=== PATIENT | female | born 1940 | race African-American/Black ===

== ENCOUNTER 2016-11-28 04:38 | Emergency (ER) | payer MEDICARE, MEDICAID ==
[~2016-11-28] VITALS: Ht 154.9 cm; Wt 68.0 kg
[~2016-11-28 04:38] MED LIST: ACETAMINOPHEN-1 EAC2 ORAL; ASPIR 8181 MG ORAL; BENADRYL; BENADRYL25 MG ORAL; BISACODYL5 MG ORAL; BP MED; CEFEPIME HCL1 GM IVPB; COLACE100 MG ORAL; DILAUDID 22 MG/1 ML IV; EYE DROP TEARS15 ML OP; FLAGYL500 MG/100 IV; GLUCOPHAGE500 MG ORAL; GUAIFENESIN-CO118 M1 ORAL; HEPARIN SO5000 UNIT2 SUBQ; HYDROCORTISONE25 MG RC; KENALOG 0.1% CR15 GM APPLIC; LIDOCAINE700 M1 TP; MEDROL DOSEPAK4 MG ORAL; MIRALAX17 GM PO; NEXIUM40 MG ORAL; NKM; NORCO 10-325 T1 EACH ORAL; NORCO 10/3251 EA ORAL; NORCO 5-325 TA1 EACH ORAL; NORVASC10 MG ORAL; NOVOLOG100 UNIT/3 SUBQ; PERI-COLACE1 EA PO; PROTONIX IV40 MG IV; SOMA350 MG PO; TRAMADOL HCL50 MG ORAL; TYLENOL EXTRA500 MG ORAL; UNOBMED; VALIUM PO; VALIUM10 MG ORAL; ZITHROMAX250 MG ORAL; ZOFRAN 4 MG4 MG/2 ML IV; ZOFRAN4 M1 ORAL; ZOFRAN4 MG ORAL; [UNRECOGNIZED DRUG - REMARK]
[2016-11-28 05:05] VITALS: BP 125/90
[2016-11-28] MEDS ORDERED: HYDROmorphone 1mg/ml Carpuject IVP ONE (05:15)
--- NOTE | 2016-11-28 05:30 | Emergency Room Report ---
History of Present Illness General Chief Complaint: Abdominal Pain Source: Patient Present Illness HPI Is a 76-year-old female well-known to this ER multiple ER is in that area. She has multiple medical problem but also has chronic pain issues. She presents with chief complaint abdominal pain. Onset for last couple days. Has vomiting but no diarrhea. Pain is diffuse. 10 out of 10. No radiation. She has previous surgical interventions before. Her medicine is not helping. She has this type of pain before and workup have been negative in the past. Allergies: Coded Allergies: IBUPROFEN (Verified Allergy, Intermediate, rash, 01/24/13) prescription strength only MORPHINE (Verified Allergy, Intermediate, rash, 01/24/13) OXYCODONE (Unverified Allergy, Unknown, 03/09/15) pt cant remember Patient History Past Medical History: see triage record, old chart reviewed Past Surgical History: other Pertinent Family History: none Social History: Denies: smoking Now: No Immunizations: other Reviewed Nursing Documentation: PMH: Agreed, PSxH: Agreed Nursing Documentation-PMH Hx Hypertension: Yes Hx Pacemaker: No Hx Asthma: No Hx COPD: No Hx Diabetes: Yes Hx Cancer: No Hx Gastrointestinal Problems: Yes - ABDOMINAL PAIN, HYSTERECTOMY 69. Hx Dialysis: No Hx Neurological Problems: Yes - RA Hx Cerebrovascular Accident: No Hx Seizures: No Hx Headaches: Yes Review of Systems Eye: Denies: blurred vision, eye pain ENT: Denies: ear pain, nose congestion, throat swelling Respiratory: Denies: cough, shortness of breath Cardiovascular: Denies: chest pain, palpitations Gastrointestinal: Reports: abdominal pain, nausea, vomiting, Denies: diarrhea Musculoskeletal: Denies: back pain, joint pain Skin: Denies: rash Neurological: Denies: headache, numbness Endocrine: Denies: increased thirst, increased urine Hematologic/Lymphatic: Denies: easy bruising All Other Systems: negative except mentioned in HPI Physical Exam Vital Signs Date Time Temp Pulse Resp B/P Pulse Ox O2 Delivery O2 Flow Rate FiO2 11/28/16 05:05 96 24 125/90 100 Room Air vitals normal Sp02 EP Interpretation: reviewed, normal General Appearance: well appearing, no apparent distress, alert Head: normocephalic, atraumatic Eyes: bilateral eye EOMI, bilateral eye PERRL ENT: hearing grossly normal, normal pharynx Neck: full range of motion, supple, no meningismus Respiratory: chest non-tender, lungs clear, normal breath sounds Cardiovascular #1: regular rate, rhythm, no murmur Gastrointestinal: normal bowel sounds, no mass, no organomegaly, no bruit, non- distended, tenderness - Diffuse Musculoskeletal: back normal, gait/station normal, normal range of motion Psychiatric: mood/affect normal Skin: warm/dry Medical Decision Making Diagnostic Impression: Primary Impression: Abdominal pain Qualified Codes: R10.84 - Generalized abdominal pain Additional Impression: Opiate dependence Qualified Codes: F11.20 - Opioid dependence, uncomplicated ER Course Patient present with abdominal pain. Most likely opioid dependence, would crawl in nature. She is pain-free now. She has multiple CT scan in the past. She does have risk factor for obstruction with previous surgery. I wet read of the CT scan is unremarkable. If negative she can be discharged home. She is much more comfortable here after Dilaudid. Lab Results Impression labs normal CT/MRI/US Diagnostic Results CT/MRI/US Diagnostic Results : Imaging Test Ordered: CT a/p Impression Read by radiologist as no acute process. Last Vital Signs Date Time Temp Pulse Resp B/P Pulse Ox O2 Delivery O2 Flow Rate FiO2 11/28/16 05:05 96 24 125/90 100 Room Air Status: improved Disposition: HOME, SELF-CARE Condition: Stable Referrals: MAVERICK CANNON (PCP) Patient Instructions: Abdominal Pain, Adult Additional Instructions: Followup with your Dr. in 2 to 3 days. Take your pain medication. Return if worse. MYRON SERRANO M.D. Nov 28, 2016 05:30
[2016-11-28 05:32] LABS: APPEARANCE,URINE CLEAR; KETONES,URINE NEGATIVE (NEGATIVE); LEUKOCYTE ESTERASE ,URINE NEGATIVE (NEGATIVE); NITRITE,URINE NEGATIVE (NEGATIVE); PH,URINE 7 (4.5-8.0); PROTEIN,URINE NEGATIVE (NEGATIVE); UROBILINOGEN,URINE NORMAL MG/DL (0.0-1.0)
[2016-11-28 05:35] LABS: BASOPHILS % (AUTO) 1.5 % (0.0-2.0); EOSINOPHILS % (AUTO) 2.5 % (0.0-3.0); LYMPHOCYTES % (AUTO) 27.9 % (20.0-45.0); MEAN CORPUSCULAR HEMOGLOBIN 33.3 PG (27.0-31.0); MEAN CORPUSCULAR HGB CONC 31.4 G/DL (32.0-36.0); MEAN CORPUSCULAR VOLUME 106 FL (80-99); MEAN PLATELET VOLUME 5.6 FL (6.5-10.1); NEUTROPHILS % (AUTO) 63.1 % (45.0-75.0); PLATELET COUNT 216 K/UL (150-450); RED BLOOD COUNT 3.67 M/UL (4.20-5.40); RED CELL DISTRIBUTION WIDTH 14.8 % (11.6-14.8); WHITE BLOOD COUNT 8.2 K/UL (4.8-10.8)
[2016-11-28] MEDS ORDERED: Tubing IV Cassette IV ONE (05:39)
[2016-11-28 05:49] LABS: ALANINE AMINOTRANSFERASE 27 U/L (3-33); ALBUMIN/GLOBULIN RATIO 1.1 (1.0-2.7); ANION GAP 16 (5-15); ASPARTATE AMINO TRANSFERASE 21 U/L (5-40); CALCIUM 9.5 mg/dL (8.6-10.2); CARBON DIOXIDE 26 mEQ/L (20-30); CHLORIDE 96 mEQ/L (98-107); CREATININE 0.6 mg/dL (0.5-0.9); HEMOLYSIS 64; LIPASE 27 U/L (< 60); POTASSIUM 4.5 mEQ/L (3.4-4.9); SODIUM 138 mEQ/L (135-145); TOTAL PROTEIN 7.2 g/dL (6.6-8.7)
[2016-11-28 06:37] VITALS: BP 113/69
[2016-11-28 07:06] VITALS: BP 113/69
--- NOTE | 2016-12-03 10:30 | Diagnostic Imaging Report ---
Indication: Abdominal pain Technique: Continuous helical transaxial imaging of the abdomen and pelvis was obtained from the lung bases to the pubic symphysis. No intravenous contrast was administered. Coronal 2-D reformats were also obtained. Total Dose length Product (DLP): [address] Dose Index Volume (CTDIvol): 18 mGy Comparison: 12/02/14 Findings: Linear reticular densities are present at the lung bases consistent with fibrosis. There is a small hiatal hernia present. Moderate arterial*consultations are present. Gallbladder is grossly unremarkable but partially contracted. No obvious stones. Normal appendix demonstrated. Diverticula noted throughout the colon especially in the sigmoid region. The uterus is not identified. Urinary bladder is unremarkable. No free fluid or free air identified. There is no evidence of bowel obstruction. There is narrowing of intervertebral discs and accompanying endplate osteophyte formation. Hypertrophied facet joints also demonstrated. Anterolisthesis L5 on S1 noted. Impression: No acute findings appreciated. Basilar lung fibrosis Hiatal hernia Atherosclerotic vascular disease Normal appendix Extensive diverticulosis of the colon Apparent hysterectomy Spondylosis No significant change compared to the previous study. [facility] has communicated the preliminary results to the Emergency Department. Their findings are largely concordant with this report. The CT scanner at [facility] is accredited by the [employer] and the scans are performed using protocols designed to limit radiation exposure to as low as reasonably achievable to attain images of sufficient resolution adequate for diagnostic evaluation.
== END 2016-11-28 07:09 | disposition home or self-care (01) ==
LOC: EMR 05:07
DX: R10.84 Generalized abdominal pain (principal); F11.20 Opioid dependence, uncomplicated; R11.10 Vomiting, unspecified; Z88.6 Allergy status to analgesic agent; Z88.5 Allergy status to narcotic agent; I10 Essential (primary) hypertension; E11.9 Type 2 diabetes mellitus without complications; M06.9 Rheumatoid arthritis, unspecified; R51 Headache
CPT/HCPCS: 36415; 74176; 80053; 81003; 83690; 85025; 96374; 96375; 99284; J1170; J2405

== ENCOUNTER 2016-12-03 23:11 | Emergency (ER) | payer MEDICARE, MEDICAID ==
[~2016-12-03] VITALS: Ht 154.9 cm; Wt 68.0 kg
[2016-12-03] MEDS ORDERED: NORVASC2.5 MG ORAL (23:34)
[2016-12-04] MEDS ORDERED: Morphine Sulfate 4mg/ml Inj IM ONE (00:15)
[2016-12-04] MEDS ORDERED: DiphenhydrAMINE 50mg/ml Inj IM ONE (00:15)
[2016-12-04 00:55] VITALS: BP 162/74
[2016-12-04] MEDS ORDERED: ALBUTEROL SULF8.5 GM INH (01:01)
[2016-12-04] MEDS ORDERED: PROMETHAZINE-D118 ML ORAL (01:01)
[2016-12-04 01:06] VITALS: BP 162/74
--- NOTE | 2016-12-04 03:42 | Emergency Room Report ---
History of Present Illness General Chief Complaint: Pain Source: Significant Other Present Illness HPI 76-year-old female presents to ED complaining of left hip pain, left knee pain, cough. States that she's had left hip left knee pain times one week. Denies trauma. Pain is a 10 out of 10, throbbing, nonradiating. Worse with walking. No other aggravating or relieving factors. Patient is well known to [facility]-has been here multiple times for pain-related complaints. Patient is also complaining of cough. Dry. No fevers or chills. No chest pain or shortness of breath. Denies sick contacts or recent travel. Denies any other associated symptoms Allergies: Coded Allergies: IBUPROFEN (Verified Allergy, Intermediate, rash, 01/24/13) prescription strength only MORPHINE (Verified Allergy, Intermediate, rash, 01/24/13) OXYCODONE (Unverified Allergy, Unknown, 03/09/15) pt cant remember Patient History Past Medical History: HTN, other - RA Past Surgical History: none Pertinent Family History: none Social History: Denies: alcohol use, drug use, smoking Now: No Immunizations: UTD Reviewed Nursing Documentation: PMH: Agreed, PSxH: Agreed Nursing Documentation-PMH Hx Hypertension: Yes Hx Pacemaker: No Hx Asthma: No Hx COPD: No Hx Diabetes: Yes Hx Cancer: No Hx Gastrointestinal Problems: Yes - ABDOMINAL PAIN, HYSTERECTOMY 69. Hx Dialysis: No Hx Neurological Problems: Yes - RA Hx Cerebrovascular Accident: No Hx Seizures: No Hx Headaches: Yes Review of Systems All Other Systems: negative except mentioned in HPI Physical Exam Vital Signs Date Time Temp Pulse Resp B/P Pulse Ox O2 Delivery O2 Flow Rate FiO2 12/03/16 23:24 97.9 97 14 170/80 98 Room Air Sp02 EP Interpretation: reviewed, normal General Appearance: no apparent distress, alert, GCS 15, non-toxic Head: normocephalic Eyes: bilateral eye PERRL, bilateral eye normal inspection ENT: normal ENT inspection Neck: normal inspection Respiratory: chest non-tender, lungs clear, normal breath sounds, speaking full sentences Cardiovascular #1: regular rate, rhythm, no edema Gastrointestinal: normal bowel sounds, non tender, soft, non-distended, no guarding, no rebound Rectal: deferred Genitourinary: no CVA tenderness Musculoskeletal: back normal, gait/station normal, normal range of motion, non- tender Neurologic: alert, oriented x3, responsive, motor strength/tone normal, sensory intact, speech normal Psychiatric: normal inspection Skin: normal inspection Lymphatic: normal inspection Medical Decision Making Diagnostic Impression: Primary Impression: Bronchitis Additional Impression: Opiate dependence Qualified Codes: F11.20 - Opioid dependence, uncomplicated ER Course 76-year-old female presents to ED complaining of left hip pain, left knee pain. Coughing times one week Differential-chronic pain, opioid dependence, bronchitis, pneumonia Patient placed on stretcher. After initial history and exam reveals an elderly female in no acute distress. There is no evidence of acute injury to the left hip or left knee. No bruising or crepitus. Full range of motion. Lungs clear Patient is requesting Dilaudid for pain. Patient has had multiple visits here always for pain medication. I explained to patient and we'll not provide her with Dilaudid today. Patient will receive alternative pain medications. Patient was very upset, screaming and yelling but ultimately accepted the pain medications Patient is aware she'll receive no pain medication prescriptions Diagnoses-bronchitis, opioid dependence Stable and discharged to home with prescription for albuterol, cough syrup. Followup with PMD. Return to ED if symptoms recur or worsen Last Vital Signs Date Time Temp Pulse Resp B/P Pulse Ox O2 Delivery O2 Flow Rate FiO2 12/04/16 01:06 97.9 92 15 162/74 99 Room Air Status: improved Disposition: HOME, SELF-CARE Condition: Stable Scripts D-Methorphan Hb/Prometh Hcl* (PROMETHAZINE-DM SYRUP*) 118 Ml Syrup 5 ML ORAL Q4H Y for For Cough for 7 Days, ML 0 Refills Prov: MAIK CHAVARRIA M.D. 12/04/16 Albuterol Sulfate* (ALBUTEROL SULFATE MDI*) 8.5 Gm Hfa.aer.ad 2 PUFF INH Q4H Y for cough/wheezing, #1 EA 0 Refills Prov: MAIK CHAVARRIA M.D. 12/04/16 Patient Instructions: Acute Bronchitis, [id number] MAIK CHAVARRIA M.D. Dec 04, 2016 03:42
== END 2016-12-04 | disposition home or self-care (01) ==
LOC: EMR 12-04 00:30
DX: J40 Bronchitis, not specified as acute or chronic (principal); F11.20 Opioid dependence, uncomplicated; I10 Essential (primary) hypertension; E11.9 Type 2 diabetes mellitus without complications; Z90.710 Acquired absence of both cervix and uterus; M06.9 Rheumatoid arthritis, unspecified; Z88.6 Allergy status to analgesic agent
CPT/HCPCS: 96372; 99283; J1200; J2270; J2405

== ENCOUNTER 2016-12-11 23:48 | Emergency (ER) | payer MEDICARE, MEDICAID ==
[~2016-12-11] VITALS: Ht 154.9 cm; Wt 74.8 kg
[~2016-12-11 23:48] MED LIST changes: +ALBUTEROL SULF8.5 GM INH; +NORVASC2.5 MG ORAL; +PROMETHAZINE-D118 ML ORAL
[2016-12-12] MEDS ORDERED: NKM (00:08)
[2016-12-12] MEDS ORDERED: HYDROmorphone 1mg/ml Carpuject IM ONE (00:45)
[2016-12-12 00:47] VITALS: BP 145/70
--- NOTE | 2016-12-12 01:44 | Emergency Room Report ---
History of Present Illness General Chief Complaint: Abdominal Pain Source: Patient Present Illness HPI This is a 76-year-old female well-known to me. She has a history of chronic abdominal pain and generalized pain. She presents with chief complaint abdominal pain with vomiting. Pain is 10 out of 10. Onset today. Said her pain medication at home is not helping. She is here every week for similar pain. Denies any other complaint. Allergies: Coded Allergies: IBUPROFEN (Verified Allergy, Intermediate, rash, 01/24/13) prescription strength only MORPHINE (Verified Allergy, Intermediate, rash, 01/24/13) OXYCODONE (Unverified Allergy, Unknown, 03/09/15) pt cant remember Patient History Past Medical History: see triage record, old chart reviewed Past Surgical History: hysterectomy, other Pertinent Family History: none Social History: Denies: smoking Last Menstrual Period: unk Now: No Immunizations: other Reviewed Nursing Documentation: PMH: Agreed, PSxH: Agreed Nursing Documentation-PMH Hx Hypertension: Yes Hx Pacemaker: No Hx Asthma: No Hx COPD: No Hx Diabetes: Yes Hx Cancer: No Hx Gastrointestinal Problems: Yes - ABDOMINAL PAIN, HYSTERECTOMY 69. Hx Dialysis: No Hx Neurological Problems: Yes - RA Hx Cerebrovascular Accident: No Hx Seizures: No Hx Headaches: Yes Review of Systems Eye: Denies: blurred vision, eye pain ENT: Denies: ear pain, nose congestion, throat swelling Respiratory: Denies: cough, shortness of breath Cardiovascular: Denies: chest pain, palpitations Gastrointestinal: Reports: abdominal pain, nausea, vomiting, Denies: diarrhea Musculoskeletal: Denies: back pain, joint pain Skin: Denies: rash Neurological: Denies: headache, numbness Endocrine: Denies: increased thirst, increased urine Hematologic/Lymphatic: Denies: easy bruising All Other Systems: negative except mentioned in HPI Physical Exam Vital Signs Date Time Temp Pulse Resp B/P Pulse Ox O2 Delivery O2 Flow Rate FiO2 12/12/16 00:05 97.0 97 18 147/73 98 Room Air vitals unremarkable. Sp02 EP Interpretation: reviewed, normal General Appearance: well appearing, no apparent distress, alert Head: normocephalic, atraumatic Eyes: bilateral eye EOMI, bilateral eye PERRL ENT: hearing grossly normal, normal pharynx Neck: full range of motion, supple, no meningismus Respiratory: chest non-tender, lungs clear, normal breath sounds Cardiovascular #1: regular rate, rhythm, no murmur Gastrointestinal: normal bowel sounds, no mass, no organomegaly, no bruit, non- distended, tenderness - diffuse Musculoskeletal: back normal, gait/station normal, normal range of motion Psychiatric: mood/affect normal Skin: warm/dry Medical Decision Making Diagnostic Impression: Primary Impression: Abdominal pain of unknown etiology Additional Impressions: Opiate dependence Qualified Codes: F11.20 - Opioid dependence, uncomplicated Chronic abdominal pain ER Course Is present with abdominal pain. Initially gave her pain medication to see a would help. She had recent CT scan is unremarkable. She still complained of pain and vomiting so I did a CT scan. CT scan unremarkable. She felt better now. We'll discharge home. CT/MRI/US Diagnostic Results CT/MRI/US Diagnostic Results : Imaging Test Ordered: CT abdomen and pelvis Impression read by radiologist. No acute process. Last Vital Signs Date Time Temp Pulse Resp B/P Pulse Ox O2 Delivery O2 Flow Rate FiO2 12/12/16 00:47 97.0 101 22 145/70 97 Room Air Status: improved Disposition: HOME, SELF-CARE Condition: Stable Referrals: MAVERICK CANNON (PCP) Patient Instructions: Abdominal Pain, Adult Additional Instructions: Followup with your Dr. in 2-3 days. Return if symptom worsen. MYRON SERRANO M.D. Dec 12, 2016 01:44
[2016-12-12 02:43] VITALS: BP 145/70
--- NOTE | 2016-12-12 09:29 | Diagnostic Imaging Report ---
Indication: Abdominal pain Technique: Continuous helical transaxial imaging of the abdomen and pelvis was obtained from the lung bases to the pubic symphysis. No intravenous contrast was administered. Coronal 2-D reformats were also obtained. Total Dose length Product (DLP): [address] Dose Index Volume (CTDIvol): 18 mGy Comparison: 11/28/16 Findings: Reticular densities are noted at the lung bases consistent with mild fibrosis. The heart is enlarged. There is an hiatal hernia present. Calcification of aorta noted. Gallbladder is unremarkable. Extensive diverticulosis of the colon is present without definite diverticulitis. Appendix is normal. Uterus is not seen. There is no free fluid or free air. There is mild distention of small bowel noted in a diffuse fashion. There is narrowing of intervertebral discs and accompanying endplate osteophyte formation. Hypertrophied facet joints also demonstrated.. There is an anterolisthesis of L5 on S1 with moderate disc disease at this level. Impression: No acute findings appreciated. Extensive colon diverticulosis without definite diverticulitis. Normal appendix. Status post hysterectomy. Basilar lung fibrosis. Hiatal hernia Atherosclerotic vascular disease Spondylosis [facility] has communicated the preliminary results to the Emergency Department. Their findings are largely concordant with this report. The CT scanner at [facility] is accredited by the [employer] and the scans are performed using protocols designed to limit radiation exposure to as low as reasonably achievable to attain images of sufficient resolution adequate for diagnostic evaluation.
== END 2016-12-12 02:45 | disposition home or self-care (01) ==
LOC: EMR 12-12 00:30
DX: R10.9 Unspecified abdominal pain (principal); F11.20 Opioid dependence, uncomplicated; G89.29 Other chronic pain; M06.9 Rheumatoid arthritis, unspecified; Z90.710 Acquired absence of both cervix and uterus; E11.9 Type 2 diabetes mellitus without complications; I10 Essential (primary) hypertension; Z88.6 Allergy status to analgesic agent
CPT/HCPCS: 74176; 96372; 99284; J1170; J2550

== ENCOUNTER 2016-12-19 07:14 | Inpatient (IN) | payer MEDICARE, MEDICAID ==
[~2016-12-19] VITALS: Ht 154.9 cm; Wt 68.0 kg
[2016-12-19] MEDS ORDERED: NS 250 ML IV ONE (07:45)
[2016-12-19] MEDS ORDERED: Ipratropium 0.02% Inh Soln 2.5ml UD HHN ONE (07:45)
[2016-12-19] MEDS ORDERED: fentaNYL 100 mcg/2 mL IV ONE ×2 (07:45→10:45)
[2016-12-19] MEDS ORDERED: Albuterol ud Inhalation HHN ONE (07:45)
--- NOTE | 2016-12-19 08:10 | Emergency Room Report ---
History of Present Illness General Chief Complaint: Pain Source: Patient Present Illness HPI The patient presents with one week of illness. She been coughing. This is worse for the last 4 days. She has pain in her joints mainly her shoulders and also her hands. She is a history of osteo and rheumatoid arthritis. Her states that she might be having fevers and chills. He states she hasn' t vomited but she states that she vomited one time yesterday. She is a sparse historian. She feels weak and has lack of appetite at this time. Pain in shoulders 10/10 aching, constant, not radiate. No rashes, headache, sore throat, diarrhea, dysuria. Able to take medicines. Allergies: Coded Allergies: IBUPROFEN (Verified Allergy, Intermediate, rash, 01/24/13) prescription strength only MORPHINE (Verified Allergy, Intermediate, rash, 01/24/13) OXYCODONE (Unverified Allergy, Unknown, 03/09/15) pt cant remember Patient History Past Medical History: see triage record, DM, other - osteoarthritis and rheumatoid arthritis Past Surgical History: hysterectomy Social History: Reports: smoking Social History Narrative Last Menstrual Period: na Now: No Reviewed Nursing Documentation: PMH: Agreed, PSxH: Agreed Nursing Documentation-PMH Past Medical History: No History, Except For Hx Hypertension: Yes Hx Pacemaker: No Hx Asthma: No Hx COPD: No Hx Diabetes: Yes Hx Cancer: No Hx Gastrointestinal Problems: Yes - HYSTERECTOMY 69. Hx Dialysis: No Hx Neurological Problems: Yes - RA Hx Cerebrovascular Accident: No Hx Seizures: No Hx Headaches: Yes Review of Systems All Other Systems: negative except mentioned in HPI Physical Exam Vital Signs Date Time Temp Pulse Resp B/P Pulse Ox O2 Delivery O2 Flow Rate FiO2 12/19/16 07:36 97.3 88 20 124/70 99 Room Air Sp02 EP Interpretation: reviewed, normal General Appearance: no apparent distress, GCS 15, other - ill appearing Head: normocephalic Eyes: bilateral eye PERRL, bilateral eye other - arcus ENT: moist mucus membranes Neck: supple, no meningismus Respiratory: rales - anteriorly L Cardiovascular #1: regular rate, rhythm Cardiovascular #2: 2+ radial (R) Gastrointestinal: normal inspection, normal bowel sounds, non tender, no mass, non-distended Musculoskeletal: back normal, gait/station normal, normal range of motion, tender - shoulders and digits, no swelling or warmth Neurologic: alert, oriented x3, data analytics developer III-XII nml as tested - decreased hearing, motor strength/tone normal, DTRs symmetric, sensory intact Psychiatric: mood/affect normal Skin: normal inspection, warm/dry Medical Decision Making Diagnostic Impression: Primary Impression: Pneumonia Qualified Codes: J18.9 - Pneumonia, unspecified organism Additional Impression: Rheumatoid arthritis Qualified Codes: M06.9 - Rheumatoid arthritis, unspecified ER Course The patient presents with cough and body pain. She received a flu vaccination this year. Differential includes bronchitis, COPD exacerbation, pneumonia among status. She's not doing well at home. Evaluation will be with blood cultures, labs, lactates time EKG, chest x-ray. The patient will be treated with albuterol and Atrovent and given the IV hydration. She will also be treated for pain. Labs significant for elevated WBC. CXR with L infiltrate and effusion. Antibiotics begun. Patient treated for pain. Improved with treatment but not doing well clinically. Needs hospitalization for IV antibiotics and continued treatment. Admit med Dr. Figueroa. He requests Dr. Gordon. Laboratory Tests Test 12/19/16 08:10 12/19/16 09:35 White Blood Count 9.5 K/UL (4.8-10.8) Red Blood Count 3.68 M/UL (4.20-5.40) L Hemoglobin 12.3 G/DL (12.0-16.0) Hematocrit 39.3 % (37.0-47.0) Mean Corpuscular Volume 107 FL (80-99) H Mean Corpuscular Hemoglobin 33.5 PG (27.0-31.0) H Mean Corpuscular Hemoglobin Concent 31.4 G/DL (32.0-36.0) L Red Cell Distribution Width 14.8 % (11.6-14.8) Platelet Count 250 K/UL (150-450) Mean Platelet Volume 5.8 FL (6.5-10.1) L Neutrophils (%) (Auto) 58.0 % (45.0-75.0) Lymphocytes (%) (Auto) 32.7 % (20.0-45.0) Monocytes (%) (Auto) 5.4 % (1.0-10.0) Eosinophils (%) (Auto) 2.3 % (0.0-3.0) Basophils (%) (Auto) 1.6 % (0.0-2.0) Prothrombin Time 9.7 SEC (9.30-11.50) Prothrombin Time INR 1.0 (0.9-1.1) PTT 24 SEC (23-33) Sodium Level 142 mEQ/L (135-145) Potassium Level 4.6 mEQ/L (3.4-4.9) Chloride Level 100 mEQ/L (98-107) Carbon Dioxide Level 29 mEQ/L (20-30) Anion Gap 13 (5-15) Blood Urea Nitrogen 16 mg/dL (7-23) Creatinine 0.8 mg/dL (0.5-0.9) Estimate Glomerular Filtration Rate mL/min (>60) Glucose Level 81 mg/dL (74-106) Lactic Acid Level 1.00 mmol/L (0.66-2.22) Calcium Level 9.1 mg/dL (8.6-10.2) Total Bilirubin < 0.2 mg/dL (0.0-1.2) Aspartate Amino Transferase (AST) 23 U/L (5-40) Alanine Aminotransferase (ALT) 20 U/L (3-33) Alkaline Phosphatase 74 U/L (35-104) Total Creatine Kinase 183 U/L (26-140) H Troponin I < 0.30 ng/mL (<=0.30) Pro-B-Type Natriuretic Peptide 49 pg/mL (0-450) Total Protein 7.0 g/dL (6.6-8.7) Albumin 4.3 g/dL (3.5-5.2) Globulin 2.7 g/dL Albumin/Globulin Ratio 1.5 (1.0-2.7) Urine Color Pale yellow Urine Appearance Clear Urine pH 7 (4.5-8.0) Urine Specific [place] 1.005 (1.005-1.035) Urine Protein Negative (NEGATIVE) Urine Glucose (UA) Negative (NEGATIVE) Urine Ketones Negative (NEGATIVE) Urine Occult Blood Negative (NEGATIVE) Urine Nitrite Negative (NEGATIVE) Urine Bilirubin Negative (NEGATIVE) Urine Urobilinogen Normal MG/DL (0.0-1.0) Urine Leukocyte Esterase Negative (NEGATIVE) Microbiology Date/Time Source Procedure Growth Status 12/19/16 07:59 Nasal Nares Influenza Types A,B Antigen (CHRISTIANNE) - Final Complete EKG Diagnostic Results Rate: normal Rhythm: NSR ST Segments: no acute changes Rhythm Strip Diag. Results EP Interpretation: yes Rhythm: NSR, no PVC's, no ectopy Chest X-Ray Diagnostic Results EP Interpretation: Yes Findings: no pneumothorax, other - infiltrate and effusion L Number of Views: 1 Last Vital Signs Date Time Temp Pulse Resp B/P Pulse Ox O2 Delivery O2 Flow Rate FiO2 12/19/16 07:36 97.3 88 20 124/70 99 Room Air Status: improved Disposition: ADMITTED INPATIENT Condition: Serious Kalyan Thomas M.D. Dec 19, 2016 08:10
[2016-12-19] MEDS ORDERED: cefTRIAXone 1 GM in NS 55 ML IVPB ONE (08:15)
[2016-12-19] MEDS ORDERED: Azithromycin 500 MG in D5W 275 ML IVPB ONE (08:15)
[2016-12-19] MEDS ORDERED: Azithromycin Inj IV ONE (08:27)
[2016-12-19 08:28] VITALS: BP 132/60
[2016-12-19 08:35] LABS: BASOPHILS % (AUTO) 1.6 % (0.0-2.0); EOSINOPHILS % (AUTO) 2.3 % (0.0-3.0); LYMPHOCYTES % (AUTO) 32.7 % (20.0-45.0); MEAN CORPUSCULAR HEMOGLOBIN 33.5 PG (27.0-31.0); MEAN CORPUSCULAR HGB CONC 31.4 G/DL (32.0-36.0); MEAN CORPUSCULAR VOLUME 107 FL (80-99); MEAN PLATELET VOLUME 5.8 FL (6.5-10.1); MONOCYTES % (AUTO) 5.4 % (1.0-10.0); PLATELET COUNT 250 K/UL (150-450); RED BLOOD COUNT 3.68 M/UL (4.20-5.40); RED CELL DISTRIBUTION WIDTH 14.8 % (11.6-14.8); WHITE BLOOD COUNT 9.5 K/UL (4.8-10.8)
[2016-12-19 08:43] LABS: PROTHROMBIN TIME 9.7 SEC (9.30-11.50)
[2016-12-19 08:58] LABS: ALANINE AMINOTRANSFERASE 20 U/L (3-33); ALBUMIN/GLOBULIN RATIO 1.5 (1.0-2.7); ANION GAP 13 (5-15); ASPARTATE AMINO TRANSFERASE 23 U/L (5-40); CALCIUM 9.1 mg/dL (8.6-10.2); CARBON DIOXIDE 29 mEQ/L (20-30); CHLORIDE 100 mEQ/L (98-107); CREATININE 0.8 mg/dL (0.5-0.9); HEMOLYSIS 67; POTASSIUM 4.6 mEQ/L (3.4-4.9); SODIUM 142 mEQ/L (135-145)
[2016-12-19] MEDS ORDERED: cefTRIAXone 1 GM in D5W 55 ML IVPB ONE (09:00)
[2016-12-19 09:02] LABS: TROPONIN I < 0.30 ng/mL (<=0.30)
[2016-12-19 09:58] LABS: APPEARANCE,URINE CLEAR; KETONES,URINE NEGATIVE (NEGATIVE); LEUKOCYTE ESTERASE ,URINE NEGATIVE (NEGATIVE); NITRITE,URINE NEGATIVE (NEGATIVE); PH,URINE 7 (4.5-8.0); PROTEIN,URINE NEGATIVE (NEGATIVE); UROBILINOGEN,URINE NORMAL MG/DL (0.0-1.0)
[2016-12-19 10:21] VITALS: BP 129/69
[2016-12-19] MEDS ORDERED: Promethazine/DM 6.25mg/5ml ORAL PRN (12:00)
[2016-12-19 12:15] VITALS: BP 123/65
[2016-12-19 13:00] VITALS: BP 134/71
--- NOTE | 2016-12-19 14:28 | Diagnostic Imaging Report ---
Indication: COUGH Technique: One view of the chest Comparison: Evident 15/07/2016 Findings: Body habitus limits evaluation. There are persistent atelectatic changes in the left lung base. Mild generalized interstitial prominence persists, unchanged. Lungs and pleural spaces otherwise clear. The heart size is upper limits of normal. No significant change Impression: Left basilar atelectasis. No definite acute process otherwise. Other findings as noted
[2016-12-19 16:00] VITALS: BP 140/72
[2016-12-19] MEDS ORDERED: Acetaminophen 500mg (ES) tab ORAL PRN (18:15)
[2016-12-19] MEDS ORDERED: Albuterol 90mcg Inhaler 8gm INH PRN (18:15)
[2016-12-19] MEDS ORDERED: Milk of Magnesia 30ml Ud ORAL PRN (18:15)
[2016-12-19] MEDS: Tylenol #4 Tab (300mg/60mg) ORAL PRN ×2 (19:33→19:37)
[2016-12-19] MEDS ORDERED: HYDROmorphone 1mg/ml Carpuject IVP PRN (19:45)
[2016-12-20] MEDS ORDERED: metFORMIN 500mg tab ORAL SCH (06:30)
--- NOTE | 2016-12-20 14:43 | Discharge Summary ---
Discharge Summary Hospital Course Date of Admission Dec 19, 2016 at 08:10 Date of Discharge Dec 19, 2016 at 21:36 Admitting Diagnosis copd exacerbation, pneumonia HPI Joanna Kim is a 76 year old female who was admitted on Dec 19, 2016 at 08:10 for Copd Exacerbation,Pneumonia Hospital Course dc summary dictated #[id number] Discharge Discharge Disposition Patient left against medical advise Discharge Diagnoses: Discharge Instructions Discharge Instructions Special Instructions I have been assigned to complete a D/C Summary on this account. I was not involved in the patient management Alessia Siddiqi NP ([place]) Dec 20, 2016 14:43
--- NOTE | 2016-12-21 15:57 | Discharge Summary 2 SIG ---
DATE OF ADMISSION: 12/19/2016 DATE OF SIGNINGS AGAINST MEDICAL ADVICE: 12/19/2016 REASON FOR ADMISSION: 76-year-old female came to emergency department complaining of one week of illness. She complained of cough, worse in the last four days. She complained of pain in her joints, mainly shoulders and hands. She has a history of rheumatoid arthritis. Her reported subjective fever and chills. She admits to vomiting one time. She admits to lack of appetite and generalized weakness, pain 10/10 in the bilateral shoulders, aching, constant, nonradiating. The patient had no leukocytosis. No fevers. Urinalysis was negative. Troponin was negative. Influenza screen test was negative. Chest x-ray revealed left base atelectasis but no definite acute process. The patient admitted to the hospital for further management for possible pneumonia. ADMITTING DIAGNOSES: Include: 1. Possible pneumonia. 2. Bronchitis versus chronic obstructive pulmonary disease exacerbation. 3. Rheumatoid arthritis. 4. Intractable pain. HOSPITAL STAY: The patient admitted to Med/Surg floor. The patient started on supplemental oxygen and pulmonary toilet with nebulizing treatment, empiric antibiotics. Home medications resumed. Antitussive provided as needed. The patient complained of pain and requested intravenous Dilaudid instead of the oral analgesic. After she received that, she stated that pain was still not relieved and wanted to leave against medical advice. at her side. The patient refused to sign the form. Risks and consequences of leaving against medical advice explained to the patient. She insisted on leaving and left with her without signing the form. FINAL DIAGNOSES: 1. Bronchitis versus chronic obstructive pulmonary disease exacerbation. 2. Possible pneumonia. 3. Rheumatoid arthritis. Jaime Gordon M.D. I have been assigned to dictate discharge summary on this account and I was not involved in the patient's management. [facility]ia [facility] N.PZia DR: Makenzie JOB#: [id number] CC: TYRELL
--- NOTE | 2017-01-20 03:26 | Cardiology Report ---
APPROVED REPORT EKG Measurement Heart [id number] Normal sinus rhythm Possible Left atrial enlargement Left ventricular hypertrophy Abnormal ECG
== END 2016-12-19 21:36 | disposition left against medical advice (07) | DRG 194 ==
LOC: EMR 07:40 → EDBEDREQ 07:58 → 4E 08:10 → EDBEDREQSVC 08:16 → EDBEDREQ 08:17
DX: J18.9 Pneumonia, unspecified organism (principal); J44.1 Chronic obstructive pulmonary disease with (acute) exacerbation; M06.9 Rheumatoid arthritis, unspecified; J40 Bronchitis, not specified as acute or chronic; Z88.6 Allergy status to analgesic agent; M19.90 Unspecified osteoarthritis, unspecified site
CPT/HCPCS: 36415; 71010; 80053; 81003; 82550; 83605; 83880; 84484; 85025; 85610; 85730; 86710; 87040; 87493; 93005; 94640; 94664; J2405

== ENCOUNTER 2016-12-24 02:10 | Emergency (ER) | payer MEDICARE, MEDICAID ==
[~2016-12-24] VITALS: Ht 154.9 cm; Wt 70.3 kg
--- NOTE | 2016-12-24 02:21 | Emergency Room Report ---
History of Present Illness General Chief Complaint: To Be Triaged Source: Patient, Family Member, Medical Record Present Illness HPI Is a 76-year-old female well-known visitor here. She's been here numerous times. She was just admitted to the hospital discharge for possible pneumonia. Chest x-ray was unremarkable. She is here because she said she having body pain. Pain is 10 out of 10. Is unchanged before. No fever or chills. Cough is nonproductive in nature. Denies any other complaint. Allergies: Coded Allergies: IBUPROFEN (Verified Allergy, Intermediate, rash, 01/24/13) prescription strength only MORPHINE (Verified Allergy, Intermediate, rash, 01/24/13) OXYCODONE (Unverified Allergy, Unknown, 03/09/15) pt cant remember Patient History Past Medical History: see triage record, old chart reviewed Past Surgical History: other Pertinent Family History: none Social History: Denies: smoking Now: No Immunizations: other Reviewed Nursing Documentation: PMH: Agreed, PSxH: Agreed Nursing Documentation-PMH Hx Hypertension: Yes Hx Pacemaker: No Hx Asthma: No Hx COPD: No Hx Diabetes: Yes Hx Cancer: No Hx Gastrointestinal Problems: Yes - HYSTERECTOMY 69. Hx Dialysis: No Hx Neurological Problems: Yes - FORGETFUL Hx Cerebrovascular Accident: No Hx Seizures: No Hx Headaches: Yes Review of Systems Eye: Denies: blurred vision, eye pain ENT: Denies: ear pain, nose congestion, throat swelling Respiratory: Reports: cough, Denies: shortness of breath Cardiovascular: Denies: chest pain, palpitations Gastrointestinal: Denies: abdominal pain, diarrhea, nausea, vomiting Musculoskeletal: Denies: back pain, joint pain Skin: Denies: rash Neurological: Denies: headache, numbness Endocrine: Denies: increased thirst, increased urine Hematologic/Lymphatic: Denies: easy bruising All Other Systems: negative except mentioned in HPI Physical Exam vitals normal Sp02 EP Interpretation: reviewed, normal General Appearance: no apparent distress, alert, Chronically Ill Head: normocephalic, atraumatic Eyes: bilateral eye EOMI, bilateral eye PERRL ENT: hearing grossly normal, normal pharynx Neck: full range of motion, supple, no meningismus Respiratory: chest non-tender, lungs clear, normal breath sounds Cardiovascular #1: regular rate, rhythm, no murmur Gastrointestinal: normal bowel sounds, non tender, no mass, no organomegaly, no bruit, non-distended Musculoskeletal: back normal, normal range of motion Neurologic: alert, oriented x3 Psychiatric: mood/affect normal Skin: warm/dry Medical Decision Making Diagnostic Impression: Primary Impression: Bronchitis Additional Impression: Opiate dependence Qualified Codes: F11.20 - Opioid dependence, uncomplicated ER Course Patient presents with acute bronchitis. Chest x-ray is unchanged before. Official reading from the last chest x-ray is negative for pneumonia. We'll discharge home with be brought in prednisone. I see no evidence of PE, dissection, ACS, pneumonia, CHF to name a few. Chest X-Ray Diagnostic Results EP Interpretation: Yes Findings: no consolidation, no effusion, no pneumothorax, no acute cardiopulmonary disease, other - Chronic Interstitial changes. Number of Views: 1 Status: improved Disposition: HOME, SELF-CARE Condition: Stable Scripts Prednisone* (PREDNISONE*) 20 Mg Tablet 40 MG ORAL DAILY, #10 TAB Prov: MYRON SERRANO M.D. 12/24/16 Albuterol Sulfate* (ALBUTEROL SULFATE MDI*) 8.5 Gm Hfa.aer.ad 2 PUFF INH Q4H Y for cough/wheezing, #1 EA 0 Refills Prov: MYRON SERRANO M.D. 12/24/16 Additional Instructions: Followup with your DrZia in 2-3 days. See your doctor for refill on her pain medication. Return if symptom worsen. MYRON SERRANO M.D. Dec 24, 2016 02:21
[2016-12-24] MEDS ORDERED: Albuterol ud Inhalation HHN ONE (02:30)
[2016-12-24 03:00] VITALS: BP 137/69
[2016-12-24] MEDS ORDERED: PREDNISONE20 MG ORAL (03:05)
[2016-12-24] MEDS ORDERED: ALBUTEROL SULF8.5 GM INH (03:05)
--- NOTE | 2016-12-24 11:11 | Diagnostic Imaging Report ---
Indication: Dyspnea Comparison: 12/19/16 A single view chest radiograph was obtained. Findings: Pulmonary vascularity is prominent but stable. Heart is enlarged and stable. Bones are osteopenic. Impression: Some prominence of the pulmonary vascularity without definite CHF. No change from the prior
== END 2016-12-24 03:05 | disposition home or self-care (01) ==
LOC: EMR 03:03
DX: J40 Bronchitis, not specified as acute or chronic (principal); F11.20 Opioid dependence, uncomplicated; R05 Cough; R52 Pain, unspecified; Z88.6 Allergy status to analgesic agent; Z88.5 Allergy status to narcotic agent; I10 Essential (primary) hypertension; E11.9 Type 2 diabetes mellitus without complications; Z90.710 Acquired absence of both cervix and uterus; R51 Headache
CPT/HCPCS: 71010; 94640; 94664; 99284

== ENCOUNTER 2017-01-29 21:54 | Emergency (ER) | payer MEDICARE, MEDICAID ==
[~2017-01-29] VITALS: Ht 167.6 cm; Wt 68.0 kg
[~2017-01-29 21:54] MED LIST changes: +PREDNISONE20 MG ORAL
--- NOTE | 2017-01-29 22:08 | Emergency Room Report ---
History of Present Illness General Chief Complaint: To Be Triaged Source: Patient, Family Member, Medical Record Present Illness HPI This is a 77-year-old female with multiple medical problem but also a strong opioid dependence and chronic pain issue. She has been here multiple times and also another hospital. She presents with chief complaint of body pain. Usually having abdominal pain. No nausea no vomiting. Said her [place] is not helping. No fever or chills. No vomiting or diarrhea. Pain is 10 out of 10. She has a multitude of CT scans that are unremarkable. Allergies: Coded Allergies: IBUPROFEN (Verified Allergy, Intermediate, rash, 01/24/13) prescription strength only MORPHINE (Verified Allergy, Intermediate, rash, 01/24/13) OXYCODONE (Unverified Allergy, Unknown, 03/09/15) pt cant remember Patient History Past Medical History: see triage record, old chart reviewed, DM, HTN, CHF Past Surgical History: other Pertinent Family History: none Social History: Denies: smoking Now: No Immunizations: other Reviewed Nursing Documentation: PMH: Agreed, PSxH: Agreed Nursing Documentation-PMH Hx Hypertension: Yes Hx Pacemaker: No Hx Asthma: No Hx COPD: No Hx Diabetes: Yes Hx Cancer: No Hx Gastrointestinal Problems: Yes - HYSTERECTOMY 69. Hx Dialysis: No Hx Neurological Problems: Yes - FORGETFUL Hx Cerebrovascular Accident: No Hx Seizures: No Hx Headaches: Yes Review of Systems Eye: Denies: blurred vision, eye pain ENT: Denies: ear pain, nose congestion, throat swelling Respiratory: Denies: cough, shortness of breath Cardiovascular: Denies: chest pain, palpitations Gastrointestinal: Reports: abdominal pain, Denies: diarrhea, nausea, vomiting Musculoskeletal: Denies: back pain, joint pain Skin: Denies: rash Neurological: Denies: headache, numbness Endocrine: Denies: increased thirst, increased urine Hematologic/Lymphatic: Denies: easy bruising All Other Systems: negative except mentioned in HPI Physical Exam vitals unremarkable Sp02 EP Interpretation: reviewed, normal General Appearance: well appearing, no apparent distress, alert Head: normocephalic, atraumatic Eyes: bilateral eye EOMI, bilateral eye PERRL ENT: hearing grossly normal, normal pharynx Neck: full range of motion, supple, no meningismus Respiratory: chest non-tender, lungs clear, normal breath sounds Cardiovascular #1: regular rate, rhythm, no murmur Gastrointestinal: normal bowel sounds, non tender, no mass, no organomegaly, no bruit, non-distended Musculoskeletal: back normal, normal range of motion Neurologic: alert, oriented x3 Psychiatric: mood/affect normal Skin: warm/dry Medical Decision Making Diagnostic Impression: Primary Impression: Abdominal pain of unknown etiology Additional Impression: Opiate dependence Qualified Codes: F11.20 - Opioid dependence, uncomplicated ER Course Patient presents with acute exacerbation of chronic pain. Abdomen exam is benign. Soft. Good bowel sounds. No causing pain. I see no need for further CT scan her blood work. We'll discharge home. She just got out of the hospital a few days ago. Status: improved Disposition: HOME, SELF-CARE Condition: Stable Additional Instructions: Followup with your pain specialist. Followup your Dr. in 7 days. Return if symptom worsen. MYRON SERRANO M.D. Jan 29, 2017 22:08
[2017-01-29] MEDS ORDERED: HYDROmorphone 1mg/ml Carpuject IM ONE (22:30)
[2017-01-29 23:53] VITALS: BP 118/70
[2017-01-29 23:59] VITALS: BP 118/70
== END 2017-01-29 23:10 | disposition home or self-care (01) ==
LOC: EMR 22:10
DX: R10.9 Unspecified abdominal pain (principal); F11.20 Opioid dependence, uncomplicated; G89.29 Other chronic pain; Z88.6 Allergy status to analgesic agent; I10 Essential (primary) hypertension; Z90.710 Acquired absence of both cervix and uterus; E11.9 Type 2 diabetes mellitus without complications
CPT/HCPCS: 96372; 99283; J1170

== ENCOUNTER 2017-02-28 23:49 | Emergency (ER) | payer MEDICARE, MEDICAID ==
[~2017-02-28] VITALS: Ht 154.9 cm; Wt 70.8 kg
[2017-03-01] VITALS: BP 150/87
[2017-03-01] MEDS ORDERED: HYDROmorphone 1mg/ml Carpuject IM ONE (01:00)
[2017-03-01] MEDS ORDERED: DiphenhydrAMINE 50mg/ml Inj IM ONE (01:00)
[2017-03-01] MEDS ORDERED: HYDROmorphone 1mg/ml Carpuject IVP ONE (01:30)
[2017-03-01] MEDS ORDERED: DiphenhydrAMINE 50mg/ml Inj IVP ONE (01:30)
[2017-03-01 02:30] VITALS: BP 145/86
--- NOTE | 2017-03-01 03:30 | Emergency Room Report ---
History of Present Illness General Chief Complaint: Vomiting Source: Patient Present Illness HPI Patient is a 77-year-old female who presented after increased generalized abdominal pain. The patient having increased nausea as well as abdominal pain. Patient had recently run out of her tramadol. Patient stated that she had generalized body aches. Patient prior history of lupus. Patient been seen multiple times immerse department for similar symptoms. The patient had not been having any fever. She denied productive cough. The patient had been taking tramadol. She is normally followed by Dr. Cannon. Allergies: Coded Allergies: IBUPROFEN (Verified Allergy, Intermediate, rash, 01/24/13) prescription strength only MORPHINE (Verified Allergy, Intermediate, rash, 01/24/13) OXYCODONE (Unverified Allergy, Unknown, 03/09/15) pt cant remember Patient History Past Medical History: see triage record Reviewed Nursing Documentation: PMH: Agreed, PSxH: Agreed Nursing Documentation-PMH Hx Hypertension: Yes Hx Pacemaker: No Hx Asthma: No Hx COPD: No Hx Diabetes: Yes Hx Cancer: No Hx Gastrointestinal Problems: Yes - HYSTERECTOMY 69. Hx Dialysis: No Hx Neurological Problems: Yes - FORGETFUL Hx Cerebrovascular Accident: No Hx Seizures: No Hx Headaches: Yes Review of Systems All Other Systems: limited - by poor cooperation Physical Exam Vital Signs Date Time Temp Pulse Resp B/P Pulse Ox O2 Delivery O2 Flow Rate FiO2 02/28/17 23:58 97.7 102 20 155/88 97 Room Air General Appearance: well appearing, no apparent distress, alert, GCS 15 Head: normocephalic, atraumatic ENT: hearing grossly normal, normal voice Neck: supple, limited range of motion Respiratory: lungs clear, no respiratory distress, speaking full sentences Cardiovascular #1: normal peripheral pulses, regular rate, rhythm Gastrointestinal: normal inspection, non tender Musculoskeletal: no calf tenderness, decreased range of mation - multiple arthritic joints Neurologic: alert, oriented x3, responsive, hand rounder III-XII nml as tested, normal gait Psychiatric: mood/affect normal Skin: no rash Medical Decision Making Diagnostic Impression: Primary Impression: Chronic abdominal pain Additional Impressions: Episode of generalized weakness Rheumatoid arthritis ER Course Patient presented for abdominal pain. Differential diagnoses included ischemic bowel, appendicitis, perforated viscus, abdominal aortic aneurysm, inferior myocardial infarction, viral gastroenteritis Patient's benign exam and does not appear to require any further imaging or laboratory testing at this time. The patient presented some evidence of opiate withdrawal. The patient was given IV pain medication. Patient had subsequent improvement. The patient was discharged home to followup with Dr. Cannon. Last Vital Signs Date Time Temp Pulse Resp B/P Pulse Ox O2 Delivery O2 Flow Rate FiO2 03/01/17 00:00 97.7 78 21 150/87 99 Room Air Status: improved Disposition: HOME, SELF-CARE Condition: Stable Referrals: MAVERICK CANNON (PCP) Patient Instructions: Nausea and Vomiting, Adult Al White Mar 01, 2017 03:30
== END 2017-03-01 02:30 | disposition home or self-care (01) ==
LOC: EMR 03-01 00:30
DX: R10.84 Generalized abdominal pain (principal); I10 Essential (primary) hypertension; E11.9 Type 2 diabetes mellitus without complications; Z90.710 Acquired absence of both cervix and uterus; R53.1 Weakness; M06.9 Rheumatoid arthritis, unspecified
CPT/HCPCS: 96374; 96375; 99284; J1170; J1200; J2405

== ENCOUNTER 2017-03-08 02:22 | Emergency (ER) | payer MEDICARE, MEDICAID ==
[~2017-03-08] VITALS: Ht 154.9 cm; Wt 69.4 kg
[2017-03-08 02:53] VITALS: BP 145/69
[2017-03-08] MEDS ORDERED: HYDROmorphone 1mg/ml Carpuject IM ONE (03:15)
[2017-03-08] MEDS ORDERED: DiphenhydrAMINE 50mg/ml Inj IM ONE (03:15)
[2017-03-08 03:58] VITALS: BP 145/69
--- NOTE | 2017-03-08 04:24 | Emergency Room Report ---
History of Present Illness General Chief Complaint: Pain Source: Patient Present Illness HPI 77 YO F with known rheumatoid arthritis and chronic pain presents with "whole body pain and I cant sleep." Patient and make specific request for IM dilaudid/benadryl and PO zofran. States "this is what she always gets in the ER." Despite repeated questioning for specific details, patient just keeps repeating "whole body pain" and pointing to the nodules in bilateral hands. Shows me Rx bottle for benadryl, states "this makes me sick" but is requesting IM benadryl instead. Otherwise denies fever/chills, chest pain, SOB, abd pain, headache, urinary complaints. Allergies: Coded Allergies: IBUPROFEN (Verified Allergy, Intermediate, rash, 01/24/13) prescription strength only MORPHINE (Verified Allergy, Intermediate, rash, 01/24/13) OXYCODONE (Unverified Allergy, Unknown, 03/09/15) pt cant remember Patient History Past Medical History: other - RA Past Surgical History: none Pertinent Family History: none Social History: Denies: alcohol use, drug use, smoking Last Menstrual Period: N/A Now: No Immunizations: UTD Reviewed Nursing Documentation: PMH: Agreed, PSxH: Agreed Nursing Documentation-PMH Hx Hypertension: Yes Hx Pacemaker: No Hx Asthma: No Hx COPD: No Hx Diabetes: Yes Hx Cancer: No Hx Gastrointestinal Problems: Yes - HYSTERECTOMY 69. Hx Dialysis: No Hx Neurological Problems: Yes - FORGETFUL Hx Cerebrovascular Accident: No Hx Seizures: No Hx Headaches: Yes Review of Systems All Other Systems: negative except mentioned in HPI Physical Exam Vital Signs Date Time Temp Pulse Resp B/P Pulse Ox O2 Delivery O2 Flow Rate FiO2 03/08/17 02:37 97.2 88 16 145/69 99 Room Air Sp02 EP Interpretation: reviewed, normal General Appearance: normal inspection, well appearing, no apparent distress, alert, GCS 15, non-toxic, cachetic, other - Elderly, well appearing Head: normocephalic, atraumatic Eyes: bilateral eye EOMI, bilateral eye PERRL ENT: normal ENT inspection, hearing grossly normal, normal voice Neck: normal inspection, full range of motion, supple, no bony tend Respiratory: normal inspection, lungs clear, normal breath sounds, no respiratory distress, no retraction, no wheezing Cardiovascular #1: regular rate, rhythm, no edema Gastrointestinal: normal inspection, normal bowel sounds, non tender, soft, no guarding, no hernia Genitourinary: no CVA tenderness Musculoskeletal: normal inspection, back normal, normal range of motion, Karely' s Sign negative Neurologic: normal inspection, alert, oriented x3, responsive, physician advisor III-XII nml as tested, motor strength/tone normal, speech normal Psychiatric: normal inspection, judgement/insight normal, mood/affect normal Skin: normal inspection, normal color, no rash Lymphatic: normal inspection Medical Decision Making Diagnostic Impression: Primary Impression: Pain Additional Impression: Chronic pain ER Course [id number] with acute on chronic pain. VSS. Afebrile Specific request for IM dilaudid/benadryl There is no specific qualifying info on acute organ pain or trauma to require further lab, imaging workup Gave IM analgesia as requested Advised PMD followup for chronic pain management DC home Last Vital Signs Date Time Temp Pulse Resp B/P Pulse Ox O2 Delivery O2 Flow Rate FiO2 03/08/17 03:58 97.2 84 16 145/69 99 Room Air Status: improved Disposition: HOME, SELF-CARE Condition: Improved Referrals: NOT CHOSEN IPA/,REFERRING (PCP) Patient Instructions: Chronic Pain HUA MARTELL M.D. Mar 08, 2017 04:23
== END 2017-03-08 03:58 | disposition home or self-care (01) ==
LOC: EMR 02:35
DX: R52 Pain, unspecified (principal); G89.29 Other chronic pain; Z88.6 Allergy status to analgesic agent; M06.9 Rheumatoid arthritis, unspecified; I10 Essential (primary) hypertension; E11.9 Type 2 diabetes mellitus without complications; Z90.710 Acquired absence of both cervix and uterus
CPT/HCPCS: 96372; 99283; J1170; J1200

== ENCOUNTER 2017-03-13 01:23 | Emergency (ER) | payer MEDICARE, MEDICAID ==
[~2017-03-13] VITALS: Ht 154.9 cm; Wt 68.0 kg
[2017-03-13 01:38] VITALS: BP 130/84
[2017-03-13] MEDS: Norco 5mg/325mg tab ORAL ONE ×2 (01:45→02:11)
--- NOTE | 2017-03-13 02:08 | Emergency Room Report ---
History of Present Illness General Chief Complaint: General Complaint Source: Patient, Significant Other Present Illness HPI Is a 77-year-old female with history of chronic pain and arthritis. She is seen pain specialist. She is out of her narcotic. She is to go to her doctor tomorrow for refill. She presents with chief complaint of generalized pain. She complaining of leg pain abdominal pain. She also complaining of vomiting. She been here multiple times for the same thing. She also go to the hospital. She usually come in requesting Dilaudid and Benadryl. She was here a few days ago. Denies any fever or chills. Pain is 10 out of 10. No other complaint. Allergies: Coded Allergies: IBUPROFEN (Verified Allergy, Intermediate, rash, 01/24/13) prescription strength only MORPHINE (Verified Allergy, Intermediate, rash, 01/24/13) OXYCODONE (Unverified Allergy, Unknown, 03/09/15) pt cant remember Patient History Past Medical History: see triage record, old chart reviewed Past Surgical History: other Pertinent Family History: none Social History: Denies: smoking Now: No Immunizations: other Reviewed Nursing Documentation: PMH: Agreed, PSxH: Agreed Nursing Documentation-PMH Past Medical History: No History, Except For Hx Hypertension: Yes Hx Pacemaker: No Hx Asthma: No Hx COPD: No Hx Diabetes: Yes Hx Cancer: No Hx Gastrointestinal Problems: Yes - HYSTERECTOMY 69. Hx Dialysis: No Hx Neurological Problems: Yes - FORGETFUL Hx Cerebrovascular Accident: No Hx Seizures: No Hx Headaches: Yes Review of Systems Eye: Denies: blurred vision, eye pain ENT: Denies: ear pain, nose congestion, throat swelling Respiratory: Denies: cough, shortness of breath Cardiovascular: Denies: chest pain, palpitations Gastrointestinal: Reports: abdominal pain, Denies: diarrhea, nausea, vomiting Musculoskeletal: Reports: joint pain, Denies: back pain Skin: Denies: rash Neurological: Denies: headache, numbness Endocrine: Denies: increased thirst, increased urine Hematologic/Lymphatic: Denies: easy bruising All Other Systems: negative except mentioned in HPI Physical Exam Vital Signs Date Time Temp Pulse Resp B/P Pulse Ox O2 Delivery O2 Flow Rate FiO2 03/13/17 01:31 97.9 98 14 130/84 99 Room Air vitals normal Sp02 EP Interpretation: reviewed, normal General Appearance: well appearing, no apparent distress, alert Head: normocephalic, atraumatic Eyes: bilateral eye EOMI, bilateral eye PERRL ENT: hearing grossly normal, normal pharynx Neck: full range of motion, supple, no meningismus Respiratory: chest non-tender, lungs clear, normal breath sounds Cardiovascular #1: regular rate, rhythm, no murmur Gastrointestinal: normal bowel sounds, non tender, no mass, no organomegaly, no bruit, non-distended Musculoskeletal: back normal, normal range of motion, tender - diffusely Psychiatric: mood/affect normal Skin: warm/dry Medical Decision Making Diagnostic Impression: Primary Impression: Abdominal pain of unknown etiology Additional Impression: Opioid dependence ER Course Patient presents with exacerbation of her chronic pain. I suspect that this is probably in withdrawal symptoms. She was very histrionic with her pain complaint. I offered her Nebo she keep asking for Dilaudid. She does not believe that she has an opioid dependence problem. She been workup with multiple CT scan in the past for abdominal pain. I see no need for repeat here. Last Vital Signs Date Time Temp Pulse Resp B/P Pulse Ox O2 Delivery O2 Flow Rate FiO2 03/13/17 01:38 97.9 14 130/84 99 Room Air 03/13/17 01:31 98 Status: improved Disposition: HOME, SELF-CARE Condition: Stable Additional Instructions: See your doctor tomorrow for refill as scheduled. Return if symptom worsen. MYRON SERRANO M.D. Mar 13, 2017 02:08
[2017-03-13 02:15] VITALS: BP 130/84
== END 2017-03-13 02:20 | disposition home or self-care (01) ==
LOC: EMR 01:45
DX: R10.9 Unspecified abdominal pain (principal); F11.20 Opioid dependence, uncomplicated; G89.29 Other chronic pain; Z88.6 Allergy status to analgesic agent; E11.9 Type 2 diabetes mellitus without complications; I10 Essential (primary) hypertension; R11.10 Vomiting, unspecified; Z90.710 Acquired absence of both cervix and uterus
CPT/HCPCS: 96372; 99283; J2550

== ENCOUNTER 2017-03-23 20:11 | Emergency (ER) | payer MEDICARE, MEDICAID ==
[~2017-03-23] VITALS: Ht 154.9 cm; Wt 68.0 kg
[2017-03-23 20:35] VITALS: BP 157/71
[2017-03-23 20:45] VITALS: BP 157/71
[2017-03-23] MEDS ORDERED: traMADol 50mg tab ORAL ONE (20:45)
[2017-03-23] MEDS ORDERED: DiphenhydrAMINE 50mg/ml Inj IM ONE (20:45)
--- NOTE | 2017-03-25 07:01 | Emergency Room Report ---
History of Present Illness General Chief Complaint: General Complaint Source: Patient Present Illness HPI 77-year-old female presents ED complaining of generalized body pain. Notes having this pain for several days. Patient is well known to [facility] and has history of chronic abdominal pain and multiple pain-related complaints. Patient comes here multiple times requesting pain medications. Has had multiple CAT scans of the abdomen which of all been negative. Patient is pain is a 10 out of 10, dull, nonradiating. No other aggravating relieving factors. States she does have any pain medication at home. No other aggravating or relieving factors. Denies any other associated symptoms Allergies: Coded Allergies: IBUPROFEN (Verified Allergy, Intermediate, rash, 01/24/13) prescription strength only MORPHINE (Verified Allergy, Intermediate, rash, 01/24/13) OXYCODONE (Unverified Allergy, Unknown, 03/09/15) pt cant remember Patient History Past Medical History: DM, HTN Past Surgical History: other - hysterectomy Pertinent Family History: none Social History: Denies: alcohol use, drug use, smoking Last Menstrual Period: Hysterectomy Now: No Immunizations: UTD Reviewed Nursing Documentation: PMH: Agreed, PSxH: Agreed Nursing Documentation-PMH Past Medical History: No History, Except For Hx Hypertension: Yes Hx Pacemaker: No Hx Asthma: No Hx COPD: No Hx Diabetes: Yes Hx Gastrointestinal Problems: Yes - HYSTERECTOMY 69. Hx Dialysis: No Hx Neurological Problems: Yes - FORGETFUL Hx Cerebrovascular Accident: No Hx Seizures: No Hx Headaches: Yes Review of Systems All Other Systems: negative except mentioned in HPI Physical Exam Vital Signs Date Time Temp Pulse Resp B/P Pulse Ox O2 Delivery O2 Flow Rate FiO2 03/23/17 20:22 97.5 107 16 157/71 97 Room Air Sp02 EP Interpretation: reviewed, normal General Appearance: alert, GCS 15, non-toxic, mild distress Head: normocephalic, atraumatic Eyes: bilateral eye PERRL, bilateral eye normal inspection ENT: hearing grossly normal, normal pharynx, no angioedema, normal voice Neck: full range of motion, supple/symm/no masses Respiratory: chest non-tender, lungs clear, normal breath sounds, speaking full sentences Cardiovascular #1: regular rate, rhythm, no edema Cardiovascular #2: 2+ carotid (R), 2+ carotid (L), 2+ radial (R), 2+ radial (L) , 2+ dorsalis pedis (R), 2+ dorsalis pedis (L) Gastrointestinal: normal bowel sounds, soft, non-distended, no guarding, no rebound, tenderness Rectal: deferred Genitourinary: normal inspection, no CVA tenderness Musculoskeletal: back normal, gait/station normal, normal range of motion, non- tender Neurologic: alert, oriented x3, responsive, motor strength/tone normal, sensory intact, speech normal Psychiatric: judgement/insight normal, memory normal, mood/affect normal, no suicidal/homicidal ideation Reflexes: 3+ bicep (R), 3+ bicep (L), 3+ tricep (R), 3+ tricep (L), 3+ knee (R) , 3+ knee (L) Skin: normal color, no rash, warm/dry, well hydrated Lymphatic: no adenopathy Medical Decision Making Diagnostic Impression: Primary Impression: Opiate dependence Qualified Codes: F11.23 - Opioid dependence with withdrawal ER Course 77-year-old female presents to ED requesting pain medication for abdominal pain. Differential-opiates dependence, chronic pain, narcotic withdrawal Patient placed on stretcher. After initial history, physical exam reveals an elderly female in no acute distress. Patient is crying, requesting Dilaudid and Benadryl. I have seen this patient multiple times myself always with the same presentation. CT scans of the past of always been negative. I see no reason to repeat CT scan at this time. Without a definitive pathology I see no reason to provide such potent narcotic medications She has been here or any 4 times this month old is requesting the same thing. I tell the patient she will members he Dilaudid or Benadryl today. I offered her oral pain medication such as one Fordyce or one Percocet. Patient initially agreed to 1 tramadol Patient then refused the medication. Cursing and screaming at staff. Patient walked out of ED prior to receiving discharge papers Diagnosis-opiates dependence Patient left in stable condition Last Vital Signs Date Time Temp Pulse Resp B/P Pulse Ox O2 Delivery O2 Flow Rate FiO2 03/23/17 20:45 97.5 16 157/71 97 Room Air 03/23/17 20:22 107 Status: improved Disposition: HOME, SELF-CARE Condition: Stable Referrals: NON PHYSICIAN (PCP) Patient Instructions: Chronic Pain MAIK CHAVARRIA M.D. Mar 25, 2017 07:01
== END 2017-03-23 20:45 | disposition home or self-care (01) ==
LOC: EMR 20:35
DX: F11.23 Opioid dependence with withdrawal (principal); Z88.6 Allergy status to analgesic agent; I10 Essential (primary) hypertension; E11.9 Type 2 diabetes mellitus without complications; Z90.710 Acquired absence of both cervix and uterus; R10.9 Unspecified abdominal pain
CPT/HCPCS: 99282

== ENCOUNTER 2018-09-26 20:53 | Emergency (ER) | payer MEDICARE, MEDICAID ==
[~2018-09-26] VITALS: Ht 154.9 cm; Wt 63.5 kg
[2018-09-26 20:57] VITALS: BP 148/80
[2018-09-26 21:10] VITALS: BP 154/78
[2018-09-26] MEDS ORDERED: Norco 5mg/325mg tab ORAL ONE (21:15)
--- NOTE | 2018-09-26 21:19 | Emergency Room Report ---
History of Present Illness General Chief Complaint: Pain Source: Patient, Medical Record Present Illness HPI this is a 78-year-old female well-known to me. She has a history of chronic pain and used to come here numerous times. Now she goes to [facility]. She presents with chief complaint of left knee pain, which is chronic in nature. She had previous knee replacement. She was recently at [facility] and had x-ray and fluid drawn from that knee. Now she complaining of left calf pain. She said her physical therapist said that she may have a blood clot. She denies any fever chills or pain is 10 out of 10. She is out of her pain medication. Denies any other complaint. No radiation. She uses a wheelchair. Allergies: Coded Allergies: IBUPROFEN (Verified Allergy, Intermediate, rash, 01/24/13) prescription strength only MORPHINE (Verified Allergy, Intermediate, rash, 01/24/13) OXYCODONE (Unverified Allergy, Unknown, 03/09/15) pt cant remember Patient History Past Medical History: see triage record, old chart reviewed Past Surgical History: other Pertinent Family History: none Social History: Denies: smoking Last Menstrual Period: n/a Now: No Immunizations: other Reviewed Nursing Documentation: PMH: Agreed; PSxH: Agreed Nursing Documentation-PMH Hx Hypertension: Yes Hx Pacemaker: No Hx Asthma: No Hx COPD: No Hx Diabetes: Yes Hx Gastrointestinal Problems: Yes - HYSTERECTOMY 69. Hx Dialysis: No Hx Neurological Problems: Yes - FORGETFUL Hx Cerebrovascular Accident: No Hx Seizures: No Hx Headaches: Yes Review of Systems Eye: Denies: eye pain, blurred vision ENT: Denies: ear pain, nose congestion, throat swelling Respiratory: Denies: cough, shortness of breath Cardiovascular: Denies: chest pain, palpitations Gastrointestinal: Denies: abdominal pain, diarrhea, nausea, vomiting Musculoskeletal: Reports: joint pain, muscle pain; Denies: back pain Skin: Denies: rash Neurological: Denies: headache, numbness Endocrine: Denies: increased thirst, increased urine Hematologic/Lymphatic: Denies: easy bruising All Other Systems: negative except mentioned in HPI Physical Exam Vital Signs Date Time Temp Pulse Resp B/P (MAP) Pulse Ox O2 Delivery O2 Flow Rate FiO2 09/26/18 20:47 97.7 102 16 148/80 98 Room Air vitals normal Sp02 EP Interpretation: reviewed, normal General Appearance: well appearing, no apparent distress, alert Head: normocephalic, atraumatic Eyes: bilateral eye PERRL, bilateral eye EOMI ENT: hearing grossly normal, normal pharynx Neck: full range of motion, supple, no meningismus Respiratory: chest non-tender, lungs clear, normal breath sounds Cardiovascular #1: regular rate, rhythm, no murmur Gastrointestinal: normal bowel sounds, non tender, no mass, no organomegaly, no bruit, non-distended Musculoskeletal: back normal, gait/station normal, normal range of motion, other - Left knee without evidence of any edema or redness. Diffuse tenderness but full range of motion. Her calf is soft without any cords. Psychiatric: mood/affect normal Skin: warm/dry Medical Decision Making Diagnostic Impression: Primary Impression: Knee pain, left Qualified Codes: M25.562 - Pain in left knee Additional Impression: Chronic pain ER Course Patient with exacerbation of her chronic pain. No evidence of DVT or fracture dislocation. No septic joint. We'll discharge home. She keep asking for a shot of pain medication. I told patient that I am not comfortable giving her strong opioid withdrawal evidence of any acute process going on. She need to follow-up with her doctor for pain management and refill on her medication. Because patient did not get IM Dilaudid, she said she wants to leave. She is competent to make that decision. CT/MRI/US Diagnostic Results CT/MRI/US Diagnostic Results : Imaging Test Ordered: ultrasound left lower ext Last Vital Signs Date Time Temp Pulse Resp B/P (MAP) Pulse Ox O2 Delivery O2 Flow Rate FiO2 09/26/18 20:47 97.7 102 16 148/80 98 Room Air Status: improved Disposition: HOME, SELF-CARE Condition: Stable Additional Instructions: Follow-up with your doctor for refill your medication. Follow-up with your pain management doctor. Stop going to different hospitals for pain shot. Return if symptom worsen. Toribio Yoo MD Sep 26, 2018 21:19
== END 2018-09-26 23:13 | disposition home or self-care (01) ==
LOC: EDBD 20:53 → EMR 21:30
DX: M25.562 Pain in left knee (principal); G89.29 Other chronic pain; I10 Essential (primary) hypertension; E11.9 Type 2 diabetes mellitus without complications; Z88.6 Allergy status to analgesic agent; Z88.5 Allergy status to narcotic agent; Z90.710 Acquired absence of both cervix and uterus
CPT/HCPCS: 99284

== ENCOUNTER 2020-10-22 15:26 | Inpatient (IN) | payer MEDICARE, MEDICAID ==
[~2020-10-22] VITALS: Ht 154.9 cm; Wt 61.2 kg
[2020-10-22] MEDS ORDERED: HYDROmorphone 1mg/ml Carpuject IVP ONE ×2 (16:15→22:30)
--- NOTE | 2020-10-22 16:30 | NUR ---
ED Nurse Note: Pt came in to ED accompanied by grandson d/t shortness of breath and chest pain on L side that has been going on for 3 days. Pt is AOx4, calm and cooperative to care, pt able to speak in full sentences, noted with generalized weakness. Pt was placed on bed, hooked to senior inspector, VSS, on RA, afebrile on triage. EKG at bedside. will continue to monitor.
[2020-10-22 16:45] VITALS: BP 158/67
--- NOTE | 2020-10-22 17:04 | Diagnostic Imaging Report ---
Indication: Chest pain Technique: One view of the chest Comparison: 12/24/2016 Findings: There are bilateral streaky as well as patchy interstitial and airspace infiltrates, right greater than left, predominantly peripheral. There is indistinctness of the bilateral hemidiaphragms. The heart size is normal. The aorta is tortuous and calcified. There is suggestion of some pleural thickening in the right upper lung. Findings are new since prior study Impression: Bilateral infiltrates versus edema. Multifocal pneumonia possible. Correlate with clinical findings
[2020-10-22 17:14] LABS: ANION GAP 9 mmol/L (5-15); BLOOD UREA NITROGEN 24 mg/dL (7-18); CALCIUM 9.4 MG/DL (8.5-10.1); CARBON DIOXIDE 31 MMOL/L (21-32); CHLORIDE 102 MMOL/L (98-107); POTASSIUM 3.7 MMOL/L (3.5-5.1); SODIUM 142 MMOL/L (136-145)
[2020-10-22 17:24] LABS: ALANINE AMINOTRANSFERASE 14 U/L (12-78); ALBUMIN 2.9 G/DL (3.4-5.0); ALBUMIN/GLOBULIN RATIO 0.4 (1.0-2.7); ALKALINE PHOSPHATASE 95 U/L (46-116); ASPARTATE AMINO TRANSFERASE 34 U/L (15-37); BILIRUBIN,TOTAL 0.4 MG/DL (0.2-1.0)
[2020-10-22 17:25] LABS: BASOPHILS % (AUTO) 1.2 % (0.0-2.0); EOSINOPHILS % (AUTO) 8.1 % (0.0-3.0); HEMATOCRIT 35.8 % (37.0-47.0); HEMOGLOBIN 11.1 G/DL (12.0-16.0); LYMPHOCYTES % (AUTO) 19.5 % (20.0-45.0); MEAN CORPUSCULAR VOLUME 97 FL (80-99); MONOCYTES % (AUTO) 6.7 % (1.0-10.0); NEUTROPHILS % (AUTO) 64.5 % (45.0-75.0); PLATELET COUNT 441 K/UL (150-450); RED BLOOD COUNT 3.68 M/UL (4.20-5.40); RED CELL DISTRIBUTION WIDTH 16.9 % (11.6-14.8); WHITE BLOOD COUNT 12.2 K/UL (4.8-10.8)
[2020-10-22] MEDS ORDERED: Azithromycin 500 MG in NS 275 ML IV ONE (17:30)
[2020-10-22] MEDS ORDERED: Piperacillin/Tazobactam 3.375 GM in NS 110 ML IVPB ONE (17:30)
--- NOTE | 2020-10-22 18:08 | NUR ---
PATIENTS DAUGHTER CALLED updated with her about the condition and admission . ABRAHAN VIRGEN [phone]
--- NOTE | 2020-10-22 19:15 | History and Physical Report ---
DATE OF ADMISSION: 10/22/2020 HISTORY OF PRESENT ILLNESS: This is a 80-year-old female who as noted has failure to thrive, has been not getting up and lying down on the bed for the last few days, and has been not eating. The patient is also feeling generalized weakness. Also complaining of chest pain, feeling generalized weakness. She has lost a significant amount of weight. 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 MEDICATIONS: See the list. ALLERGIES: NKA. FAMILY HISTORY: Not contributory. SOCIAL HISTORY: The patient lives at home by herself, but her daughter visits her almost every day. PHYSICAL EXAMINATION: VITAL SIGNS: Blood pressure is 120/70, pulse 84, respirations 18, temperature, no fever. SKIN: Poor skin turgor. HEENT: Eyes are open. NECK: Supple. CHEST: Bilateral decreased breath sounds. CARDIOVASCULAR: Regular rhythm. Tachycardia. ABDOMEN: Soft. Positive bowel sounds. EXTREMITIES: Severe arthritis, synovitis on the right knee. The patient also has severe arthritis on the left shoulder on palpation and diffuse tenderness. Also low back pain. GENITOURINARY: Deferred. LABORATORY DATA: White counts are normal, but chest x-ray showing pneumonia. ASSESSMENT AND PLAN: 1. Pneumonia. 2. Failure to thrive. 3. Dehydration. 4. Intractable pain. 5. Anxiety. 6. Degenerative arthritis. We will admit on telemetry bed. Rule out of SC. Add IV antibiotics, bronchodilator treatments, IV fluids. Consider ID and pain management consult. Also consider pulmonary consult. Tom Figueroa M.D. DR: SADIA JOB#: [id number] CC:
--- NOTE | 2020-10-22 19:19 | NUR ---
ED Nurse Note: urine collected, sent to lab.
--- NOTE | 2020-10-22 19:24 | NUR ---
ED Nurse Note: hand off given to aleyda coughlin rn.
[2020-10-22 19:30] VITALS: BP 147/81
--- NOTE | 2020-10-22 19:30 | NUR ---
ED Nurse Note: received report from Maria Del Carmen CORONADO. pt calm and resting in bed, vss, nad, aaox4.
[2020-10-22 19:32] LABS: BILIRUBIN, URINE NEGATIVE (NEGATIVE); GLUCOSE, URINE (UA) NEGATIVE (NEGATIVE); KETONES,URINE 1+ (NEGATIVE); LEUKOCYTE ESTERASE ,URINE 1+ (NEGATIVE); NITRITE,URINE NEGATIVE (NEGATIVE); PH,URINE 6 (4.5-8.0); PROTEIN,URINE 2+ (NEGATIVE); UROBILINOGEN,URINE NORMAL MG/DL (0.0-1.0)
[2020-10-22 19:50] LABS: INR 1.3 (0.9-1.1)
[2020-10-22 19:51] LABS: COLOR,URINE YELLOW
[2020-10-22 19:52] LABS: APPEARANCE,URINE SLIGHTLY CLOUDY
--- NOTE | 2020-10-22 19:53 | Emergency Room Report ---
History of Present Illness General Chief Complaint: Chest Pain Source: Patient Present Illness HPI 80-year-old female presents for evaluation. Brought in by family. States she has been having chest pain for the last 3 days. Patient states she is having chest pain or shortness of breath. Pain is dull, 10 out of 10, nonradiating. Denies cough. Denies fevers or chills. Denies nausea or vomiting. No other aggravating relieving factors. Denies any other associated symptoms Allergies: Coded Allergies: IBUPROFEN (Verified Allergy, Intermediate, rash, 01/24/13) prescription strength only MORPHINE (Verified Allergy, Intermediate, rash, 01/24/13) OXYCODONE (Unverified Allergy, Unknown, 03/09/15) pt cant remember COVID-19 Screening Contact w/high risk pt: No Experienced COVID-19 symptoms?: No COVID-19 Testing performed SOYFREEZE OPERATOR: No Patient History Past Medical History: HTN Past Surgical History: other - Hysterectomy Pertinent Family History: none Social History: Denies: smoking, alcohol use, drug use Now: No Immunizations: UTD Reviewed Nursing Documentation: PMH: Agreed; PSxH: Agreed Nursing Documentation-PMH Hx Hypertension: Yes Hx Pacemaker: No Hx Asthma: No Hx COPD: No Hx Diabetes: Yes Hx Cancer: No Hx Gastrointestinal Problems: Yes - HYSTERECTOMY 69. Hx Dialysis: No Hx Neurological Problems: Yes - FORGETFUL Hx Cerebrovascular Accident: No Hx Seizures: No Hx Headaches: Yes Review of Systems All Other Systems: negative except mentioned in HPI Physical Exam Vital Signs Date Time Temp Pulse Resp B/P (MAP) Pulse Ox O2 Delivery O2 Flow Rate FiO2 10/22/20 16:00 97.9 98 24 158/67 (97) 96 Room Air Sp02 EP Interpretation: reviewed, normal General Appearance: no apparent distress, alert, GCS 15, non-toxic Head: normocephalic, atraumatic Eyes: bilateral eye normal inspection, bilateral eye PERRL ENT: hearing grossly normal, normal pharynx, no angioedema, normal voice Neck: full range of motion, supple/symm/no masses Respiratory: chest non-tender, lungs clear, normal breath sounds, speaking full sentences Cardiovascular #1: regular rate, rhythm, no edema Cardiovascular #2: 2+ carotid (R), 2+ carotid (L), 2+ radial (R), 2+ radial (L), 2+ dorsalis pedis (R), 2+ dorsalis pedis (L) Gastrointestinal: normal bowel sounds, non tender, soft, non-distended, no guarding, no rebound Rectal: deferred Genitourinary: normal inspection, no CVA tenderness Musculoskeletal: back normal, normal range of motion, gait/station normal, non- tender Neurologic: alert, motor strength/tone normal, oriented x3, sensory intact, responsive, speech normal Psychiatric: judgement/insight normal, memory normal, mood/affect normal, no suicidal/homicidal ideation Reflexes: 3+ bicep (R), 3+ bicep (L), 3+ tricep (R), 3+ tricep (L), 3+ knee (R), 3+ knee (L) Lymphatic: no adenopathy Procedures Critical Care Time Critical Care Time i. I feel this is a highly complex case requiring extensive working including EKG/Rhythm strip, Xray/CT/US, Blood/urine lab work, repeat exams while in ED, and administration of strong opiates/narcotics for pain control, admission to hospital or close patient follow up. Total time: 30 min bedside evaluation and treatment excludes procedures (EKG). Reason for critical care: chest pain,hypoxia Possible complications: hypotension, hypertension, CA, shock, arrhythmias, metabolic acidosis, end organ damage, respiratory failure. Interventions: Labs, EKG, chest x-ray, pain meds, broad-spectrum antibiotics, oxygen, cardiac monitoring Course: Patient presenting with chest pain and shortness of breath. O2 sats low. Chest x-ray shows bilateral infiltrates. Placed on oxygen. O2 sats improved. Given broad-spectrum antibiotics. Given IV hydration Consultations: nursing staff, EMS, family Performed by: Dr Britton Tolerated well condition = serious j. because of unstable vital signs this patient had a condition that could potentially threaten life or limb. I feel this is a critical patient who required my full attention while patient was considered critical. Total Critical Care Time excluding procedures was greater than 35 minutes Medical Decision Making Diagnostic Impression: Primary Impression: ACS (acute coronary syndrome) Additional Impressions: FTT (failure to thrive) in adult Pneumonia Qualified Codes: J18.9 - Pneumonia, unspecified organism ER Course Hospital Course 80-year-old female presents with chest pain Differential diagnoses include: Pneumonia, CHF exacerbation, pneumothorax, fluid overload Clinical course Patient placed on stretcher. On telemetry monitor. After initial history and physical, I ordered labs, IV fluids, EKG, chest x-ray, blood cultures, UA. Patient placed on nasal cannula with O2 saturation improving Labs -leukocytosis noted, hemoglobin/hematocrit stable, electrolyts ok, trop negative EKG - NSR, no acute ischemic changes interpreted by me CXR - bilateral infiltrates O2 sats improved on oxygen. No cough. No reported fever. Family does not suspect Covid. Covid swab sent. Given Dilaudid for pain. Broad-spectrum antibiotics given. Case discussed with Dr. Figueroa and he agreed to the patient to his service for further care and support I feel this is a highly complex case requiring extensive working including EKG/Rhythm strip, Xray/CT/US, Blood/urine lab work, repeat exams while in ED, and administration of strong opiates/narcotics for pain control, admission to hospital or close patient follow up. Diagnosis - ACS, FTT, pneumonia Patient admitted to telemetry in serious condition Laboratory Tests Test 10/22/20 16:42 10/22/20 19:13 White Blood Count 12.2 K/UL (4.8-10.8) H Red Blood Count 3.68 M/UL (4.20-5.40) L Hemoglobin 11.1 G/DL (12.0-16.0) L Hematocrit 35.8 % (37.0-47.0) L Mean Corpuscular Volume 97 FL (80-99) Mean Corpuscular Hemoglobin 30.1 PG (27.0-31.0) Mean Corpuscular Hemoglobin Concent 31.0 G/DL (32.0-36.0) L Red Cell Distribution Width 16.9 % (11.6-14.8) H Platelet Count 441 K/UL (150-450) Mean Platelet Volume 6.7 FL (6.5-10.1) Neutrophils (%) (Auto) 64.5 % (45.0-75.0) Lymphocytes (%) (Auto) 19.5 % (20.0-45.0) L Monocytes (%) (Auto) 6.7 % (1.0-10.0) Eosinophils (%) (Auto) 8.1 % (0.0-3.0) H Basophils (%) (Auto) 1.2 % (0.0-2.0) Sodium Level 142 MMOL/L (136-145) Potassium Level 3.7 MMOL/L (3.5-5.1) Chloride Level 102 MMOL/L (98-107) Carbon Dioxide Level 31 MMOL/L (21-32) Anion Gap 9 mmol/L (5-15) Blood Urea Nitrogen 24 mg/dL (7-18) H Creatinine 1.0 MG/DL (0.55-1.30) Estimat Glomerular Filtration Rate > 60 mL/min (>60) Glucose Level 111 MG/DL (74-106) H Lactic Acid Level 1.60 mmol/L (0.4-2.0) Calcium Level 9.4 MG/DL (8.5-10.1) Ferritin 171 NG/ML (8-388) Total Bilirubin 0.4 MG/DL (0.2-1.0) Aspartate Amino Transf (AST/SGOT) 34 U/L (15-37) Alanine Aminotransferase (ALT/SGPT) 14 U/L (12-78) Alkaline Phosphatase 95 U/L (46-116) Lactate Dehydrogenase 367 U/L (81-234) H Troponin I 0.007 ng/mL (0.000-0.056) C-Reactive Protein, Quantitative 9.3 mg/dL (0.00-0.90) H Pro-B-Type Natriuretic Peptide 1152 pg/mL (0-125) H Total Protein 9.8 G/DL (6.4-8.2) H Albumin 2.9 G/DL (3.4-5.0) L Globulin 6.9 g/dL Albumin/Globulin Ratio 0.4 (1.0-2.7) L Prothrombin Time Pending Prothromb Time International Ratio Pending Activated Partial Thromboplast Time Pending D-Dimer Pending Urine Color Pending Urine Appearance Pending Urine pH Pending Urine Specific Arnegard Pending Urine Protein Pending Urine Glucose (UA) Pending Urine Ketones Pending Urine Blood Pending Urine Nitrite Pending Urine Bilirubin Pending Urine Urobilinogen Pending Urine Leukocyte Esterase Pending Urine Opiates Screen Negative (NEGATIVE) Urine Barbiturates Screen Negative (NEGATIVE) Phencyclidine (PCP) Screen Negative (NEGATIVE) Urine Amphetamines Screen Negative (NEGATIVE) Urine Benzodiazepines Screen Positive (NEGATIVE) H Urine Cocaine Screen Negative (NEGATIVE) Urine Marijuana (THC) Screen Negative (NEGATIVE) EKG Diagnostic Results Troponin ordered: Yes Rate: normal Rhythm: NSR ST Segments: no acute changes ASA given to the pt in ED: No - patient allergic Rhythm Strip Diag. Results EP Interpretation: yes Rhythm: NSR, no PVC's, no ectopy Chest X-Ray Diagnostic Results Chest X-Ray Diagnostic Results : Chest X-Ray Ordered: Yes # of Views/Limited/Complete: 1 View Indication: Chest Pain EP Interpretation: Yes Interpretation: no effusion, no pneumothorax, other - bilateral infiltrates Impression: Other - Pneumonia Electronically Signed by: Electronically signed by Eliseo Britton MD Last Vital Signs Date Time Temp Pulse Resp B/P (MAP) Pulse Ox O2 Delivery O2 Flow Rate FiO2 10/22/20 16:45 98 24 Room Air 10/22/20 16:45 97.9 158/67 96 Status: improved Disposition: ADMITTED INPATIENT Condition: Serious Referrals: Luis Figueroa MD (PCP) Eliseo Britton MD Oct 22, 2020 19:52
[2020-10-22] MEDS ORDERED: HYDROmorphone 1 MG in NS 55 ML IV ONE (22:30)
[2020-10-22] MEDS ORDERED: HYDROmorphone 1 MG in NS 55 ML IVPB ONE (22:30)
[2020-10-22 22:36] VITALS: BP 144/86
--- NOTE | 2020-10-23 00:09 | NUR ---
Emergency contact: Pippa (daughter)
--- NOTE | 2020-10-23 01:50 | NUR ---
ED Nurse Note: texted dr. Figueroa for admission order request
[2020-10-23] MEDS ORDERED: HYDROmorphone 1mg/ml Carpuject IVP ONE ×2 (02:15→07:45)
--- NOTE | 2020-10-23 04:32 | NUR ---
ED Nurse Note: awaiting response from Dr Figueroa
[2020-10-23 05:51] VITALS: BP 155/87
[2020-10-23 07:35] VITALS: BP 157/89
--- NOTE | 2020-10-23 07:50 | NUR ---
ED Nurse Note:called report to tele with report, given to drew Salcido. taken up stairs
--- NOTE | 2020-10-23 08:00 | NUR ---
NURSE NOTES: Received patient from ED and was given report from IVONNE Ugalde. The patients belonging list was verified. The patient is AxOx3 and was in stable condition. The patient was oriented to the room, The bed was placed at the lowest position, bed locked, call light was within reach, side rails were placed x3. Dr Figueroa was notified of patients arrival to unit and orders were being placed.
[2020-10-23] MEDS ORDERED: Hydromorphone 0.5mg/0.5ml inj IVP PRN (10:15)
[2020-10-23] MEDS ORDERED: Acetaminophen 500mg (ES) tab ORAL PRN (10:15)
[2020-10-23] MEDS: NovoLOG Insulin Flexpen SUBQ SCH ×3 (11:30→21:00)
--- NOTE | 2020-10-23 11:31 | NUR ---
NURSE NOTES: On initial assessment patient O2 saturation was below normal limits. The bad was placed in high fowlers position and patient was started on 2L nasal cannula which improved patient O2 saturation to normal limits. Patient education was given on importance of supplemental oxygen and bed positioning.
[2020-10-23 12:00] VITALS: BP 145/88
[2020-10-23] MEDS: cefTRIAXone 1 GM in D5W 55 ML IVPB SCH (12:15)
--- NOTE | 2020-10-23 13:16 | General Progress Note ---
Subjective Constitutional: Reports: malaise, weakness HEENT: Reports: no symptoms Cardiovascular: Reports: chest pain Respiratory: Reports: cough, shortness of breath, SOB at rest Gastrointestinal/Abdominal: Reports: poor appetite; Denies: no symptoms, abdomen distended, abdominal pain, black stools, tarry stools, blood in stool, constipated, diarrhea, difficulty swallowing, nausea, poor fluid intake, rectal bleeding, vomiting, other Neurologic/Psychiatric: Reports: anxiety, weakness Allergies: Coded Allergies: IBUPROFEN (Verified Allergy, Intermediate, rash, 01/24/13) prescription strength only MORPHINE (Verified Allergy, Intermediate, rash, 01/24/13) OXYCODONE (Unverified Allergy, Unknown, 03/09/15) pt cant remember Subjective awake poor po intake wt loss Objective Last 24 Hour Vital Signs Date Time Temp Pulse Resp B/P (MAP) Pulse Ox O2 Delivery O2 Flow Rate FiO2 10/23/20 09:00 Nasal Cannula 2.0 10/23/20 08:10 Nasal Cannula 2.0 10/23/20 08:07 98.7 10/23/20 07:50 98.7 103 20 157/89 98 Room Air 10/23/20 07:35 103 20 157/89 98 Room Air 10/23/20 05:51 98.7 98 22 155/87 94 Room Air 10/22/20 23:05 98.1 10/22/20 22:36 89 20 144/86 98 Room Air 10/22/20 19:30 98.1 71 22 147/81 98 Room Air 10/22/20 19:00 97.9 10/22/20 16:45 98 24 Room Air 10/22/20 16:45 97.9 24 158/67 96 Room Air 10/22/20 16:00 97.9 98 24 158/67 (97) 96 Room Air Intake and Output 10/22/20 10/23/20 19:00 07:00 Intake Total 1000 ml Balance 1000 ml Intake IV Total 1000 ml Laboratory Tests 10/22/20 16:42: White Blood Count 12.2H, Red Blood Count 3.68L, Hemoglobin 11.1L, Hematocrit 35.8L, Mean Corpuscular Volume 97, Mean Corpuscular Hemoglobin 30.1, Mean Corpuscular Hemoglobin Concent 31.0L, Red Cell Distribution Width 16.9H, Platelet Count 441, Mean Platelet Volume 6.7, Neutrophils (%) (Auto) 64.5, Lymphocytes (%) (Auto) 19.5L, Monocytes (%) (Auto) 6.7, Eosinophils (%) (Auto) 8.1H, Basophils (%) (Auto) 1.2, Sodium Level 142, Potassium Level 3.7, Chloride Level 102, Carbon Dioxide Level 31, Anion Gap 9, Blood Urea Nitrogen 24H, Creatinine 1.0, Estimat Glomerular Filtration Rate > 60, Glucose Level 111H, Lactic Acid Level 1.60, Calcium Level 9.4, Ferritin 171, Total Bilirubin 0.4, Aspartate Amino Transf (AST/SGOT) 34, Alanine Aminotransferase (ALT/SGPT) 14, Alkaline Phosphatase 95, Lactate Dehydrogenase 367H, Troponin I 0.007, C- Reactive Protein, Quantitative 9.3H, Pro-B-Type Natriuretic Peptide 1152H, Total Protein 9.8H, Albumin 2.9L, Globulin 6.9, Albumin/Globulin Ratio 0.4L 10/22/20 19:13: Prothrombin Time 14.1H, Prothromb Time International Ratio 1.3H, Activated Partial Thromboplast Time 27, D-Dimer 1.17H, Urine Color Yellow, Urine Appearance Slightly cloudy, Urine pH 6, Urine Specific [place] 1.015, Urine Protein 2+H, Urine Glucose (UA) Negative, Urine Ketones 1+H, Urine Blood Negative, Urine Nitrite Negative, Urine Bilirubin Negative, Urine Urobilinogen Normal, Urine Leukocyte Esterase 1+H, Urine RBC 0-2, Urine WBC 2-4, Urine Squamous Epithelial Cells Few, Urine Bacteria Few, Urine Hyaline Casts 10-15H, Urine Mucus ModerateH, Urine Opiates Screen Negative, Urine Barbiturates Screen Negative, Phencyclidine (PCP) Screen Negative, Urine Amphetamines Screen Negative, Urine Benzodiazepines Screen PositiveH, Urine Cocaine Screen Negative, Urine Marijuana (THC) Screen Negative 10/23/20 12:21: POC Whole Blood Glucose 119H Height (Feet): 5 Height (Inches): 1.00 Weight (Pounds): 135 General Appearance: alert EENT: PERRL/EOMI Neck: supple Cardiovascular: regular rhythm Respiratory/Chest: crackles/rales Abdomen: non tender, soft Extremities: swelling, other - rt knee selling and tenderness with decrease rom Luis Figueroa MD Oct 23, 2020 13:16
--- NOTE | 2020-10-23 13:20 | General Progress Note ---
Subjective Allergies: Coded Allergies: IBUPROFEN (Verified Allergy, Intermediate, rash, 01/24/13) prescription strength only MORPHINE (Verified Allergy, Intermediate, rash, 01/24/13) OXYCODONE (Unverified Allergy, Unknown, 03/09/15) pt cant remember Subjective awake poor po intake wt loss Objective Last 24 Hour Vital Signs Date Time Temp Pulse Resp B/P (MAP) Pulse Ox O2 Delivery O2 Flow Rate FiO2 10/23/20 09:00 Nasal Cannula 2.0 10/23/20 08:10 Nasal Cannula 2.0 10/23/20 08:07 98.7 10/23/20 07:50 98.7 103 20 157/89 98 Room Air 10/23/20 07:35 103 20 157/89 98 Room Air 10/23/20 05:51 98.7 98 22 155/87 94 Room Air 10/22/20 23:05 98.1 10/22/20 22:36 89 20 144/86 98 Room Air 10/22/20 19:30 98.1 71 22 147/81 98 Room Air 10/22/20 19:00 97.9 10/22/20 16:45 98 24 Room Air 10/22/20 16:45 97.9 24 158/67 96 Room Air 10/22/20 16:00 97.9 98 24 158/67 (97) 96 Room Air Intake and Output 10/22/20 10/23/20 19:00 07:00 Intake Total 1000 ml Balance 1000 ml Intake IV Total 1000 ml Laboratory Tests 10/22/20 16:42: White Blood Count 12.2H, Red Blood Count 3.68L, Hemoglobin 11.1L, Hematocrit 35.8L, Mean Corpuscular Volume 97, Mean Corpuscular Hemoglobin 30.1, Mean Corpuscular Hemoglobin Concent 31.0L, Red Cell Distribution Width 16.9H, Platelet Count 441, Mean Platelet Volume 6.7, Neutrophils (%) (Auto) 64.5, Lymphocytes (%) (Auto) 19.5L, Monocytes (%) (Auto) 6.7, Eosinophils (%) (Auto) 8.1H, Basophils (%) (Auto) 1.2, Sodium Level 142, Potassium Level 3.7, Chloride Level 102, Carbon Dioxide Level 31, Anion Gap 9, Blood Urea Nitrogen 24H, Creatinine 1.0, Estimat Glomerular Filtration Rate > 60, Glucose Level 111H, Lactic Acid Level 1.60, Calcium Level 9.4, Ferritin 171, Total Bilirubin 0.4, Aspartate Amino Transf (AST/SGOT) 34, Alanine Aminotransferase (ALT/SGPT) 14, Alkaline Phosphatase 95, Lactate Dehydrogenase 367H, Troponin I 0.007, C- Reactive Protein, Quantitative 9.3H, Pro-B-Type Natriuretic Peptide 1152H, Total Protein 9.8H, Albumin 2.9L, Globulin 6.9, Albumin/Globulin Ratio 0.4L 10/22/20 19:13: Prothrombin Time 14.1H, Prothromb Time International Ratio 1.3H, Activated Partial Thromboplast Time 27, D-Dimer 1.17H, Urine Color Yellow, Urine Appearance Slightly cloudy, Urine pH 6, Urine Specific [place] 1.015, Urine Protein 2+H, Urine Glucose (UA) Negative, Urine Ketones 1+H, Urine Blood Negative, Urine Nitrite Negative, Urine Bilirubin Negative, Urine Urobilinogen N ormal, Urine Leukocyte Esterase 1+H, Urine RBC 0-2, Urine WBC 2-4, Urine Squamous Epithelial Cells Few, Urine Bacteria Few, Urine Hyaline Casts 10-15H, Urine Mucus ModerateH, Urine Opiates Screen Negative, Urine Barbiturates Screen Negative, Phencyclidine (PCP) Screen Negative, Urine Amphetamines Screen Negative, Urine Benzodiazepines Screen PositiveH, Urine Cocaine Screen Negative, Urine Marijuana (THC) Screen Negative 10/23/20 12:21: POC Whole Blood Glucose 119H Height (Feet): 5 Height (Inches): 1.00 Weight (Pounds): 135 Assessment/Plan Status: doing well Assessment/Plan: 1 ashley pneumonia r/o covid 2 weight loss 3 failure of thrive 4 intractable pain rt knee and lt shoulder 5 chf 6 dm 7 htn 9 djd admit to ap r/o covid cont iv abx pain meds pulmonary on consult pain management on the case Luis Figueroa MD Oct 23, 2020 13:20
[2020-10-23] MEDS: Acetaminophen 500mg (ES) tab ORAL SCH ×3 (13:29→18:02)
[2020-10-23] MEDS: Azithromycin 500 MG in D5W 275 ML IV SCH (13:40)
[2020-10-23 16:00] VITALS: BP 152/91
[2020-10-23] MEDS: metFORMIN 500mg tab ORAL SCH ×2 (16:30→18:01)
--- NOTE | 2020-10-23 17:00 | NUR ---
NURSE NOTES: Primary MD notified because patient had 16 beats of Vtach at 1656. Primary MD requested to notify Dr. Fernández, DR. Fernández was made aware and message was left for Dr Fernández about patient condition.
--- NOTE | 2020-10-23 18:00 | NUR ---
NURSE NOTES: Covid Swab collected and sent down to lab.
--- NOTE | 2020-10-23 18:27 | NUR ---
NURSE NOTES: Pippa (daughter) called and wants to speak to Dr Figueroa. Dr Figueroa contacted and number given .
--- NOTE | 2020-10-23 18:34 | NUR ---
NURSE NOTES: Patient refused blood glucose and medications despite patient education on importance of medications and of the capillary blood test. Patient stated, "I dont want it" When offered medication. patient is stable with no acute signs of distress.
--- NOTE | 2020-10-23 19:32 | NUR ---
NURSE HAND-OFF REPORT: Important Events on Shift:[admission, IVF, IV antibiotics, VT] Patient Status: [FULL CODE] Diet: [CCHO medium] Pending Orders: [] Pending Results/Labs:[] Pending MD notification:[] Latest Vital Signs: Temperature 98.6 , Pulse 135 , B/P 152 /91 , Respiratory Rate 20 , O2 SAT 96 , Nasal Cannula, O2 Flow Rate 2.0 . Vital Sign Comment: [] EKG Rhythm: 16 beats of VTACH Rhythm change?: Y Notified?: Mervat Figueroa MD Response: New consult With Trish Latest Iniguez Fall Score: 45 Fall Risk: High Risk Safety Measures: Call light Within Reach, Bed Alarm Zone 1, Side Rails Side Rails x3, Bed position Low and Locked. Fall Precautions: Yellow Socks Patient Fall Education Report given to [Porter Lazar RN].
--- NOTE | 2020-10-23 19:40 | NUR ---
NURSE NOTES: Patient received from IVONNE Longoria. Patient is A/O x 2. Patient is on 2 L Nasal cannula satting at 98% with no signs of acute respiratory distress noted. Patient has a 16 georgian stephens catheter, patent and well draining. Patient has a right 22 gauge IV on her forearm with 1/2 NS running at 75 ml/hr and a 22 gauge IV on her left AC, saline locked. Patient has no complaints as of the moment. Bed is in the lowest position, call light within reach. Will continue to monitor.
[2020-10-23 20:00] VITALS: BP 127/74
[2020-10-23] MEDS: HYDROcodone/Acetamin 5/325 tab ORAL PRN (22:21)
[2020-10-23] MEDS: Heparin 5000 units/ml inj SUBQ SCH (22:22)
[2020-10-24] VITALS: BP 124/66
[2020-10-24 04:00] VITALS: BP 139/57
[2020-10-24] MEDS: metFORMIN 500mg tab ORAL SCH ×2 (06:55→16:30)
[2020-10-24] MEDS: NovoLOG Insulin Flexpen SUBQ SCH ×4 (06:56→21:00)
--- NOTE | 2020-10-24 07:30 | NUR ---
NURSE HAND-OFF REPORT: Important Events on Shift:[Patient complains of right shoulder pain] Patient Status: [Stable] Diet: [CCHO medium] Pending Orders: [] Pending Results/Labs:[] Pending MD notification:[] Latest Vital Signs: Temperature 98.1 , Pulse 96 , B/P 139 /57 , Respiratory Rate 20 , O2 SAT 97 , Nasal Cannula, O2 Flow Rate 2.0 . Vital Sign Comment: [] EKG Rhythm: Sinus Rhythm Rhythm change?: N MD Notified?: N -Dr. Henry CANTRELL Response: New consult With Trish Latest Iniguez Fall Score: 60 Fall Risk: High Risk Safety Measures: Call light Within Reach, Bed Alarm Zone 1, Side Rails Side Rails x3, Bed position Low and Locked. Fall Precautions: Yellow Socks Patient Fall Education Report given to IVONNE Kruger].
--- NOTE | 2020-10-24 07:31 | NUR ---
NURSE NOTES: Received patient in bed awake. O2 via NC in place, no acute distress. FC intact, draining yellow colored urine. IV lines intact on left AC and right FA. Complaining of right shoulder pain. HOB elevated. Bed locked in low position. Call light within reach. Will continue plan of care.
[2020-10-24 08:00] VITALS: BP 120/67
[2020-10-24] MEDS: Aspirin EC 81mg tab ORAL SCH (08:53)
[2020-10-24] MEDS: HYDROcodone/Acetamin 5/325 tab ORAL PRN (08:53)
[2020-10-24] MEDS: Acetaminophen 500mg (ES) tab ORAL SCH ×4 (08:54→17:04)
[2020-10-24] MEDS: Heparin 5000 units/ml inj SUBQ SCH ×2 (08:55→20:39)
--- NOTE | 2020-10-24 09:24 | Consultation ---
History of Present Illness General Chief Complaint: Chest Pain Present Illness Allergies: Coded Allergies: IBUPROFEN (Verified Allergy, Intermediate, rash, 01/24/13) prescription strength only MORPHINE (Verified Allergy, Intermediate, rash, 01/24/13) OXYCODONE (Unverified Allergy, Unknown, 03/09/15) pt cant remember Medication History Scheduled Amlodipine Besylate (Norvasc), 10 MG ORAL DAILY, (Reported) Aspirin* (Aspir 81*), 81 MG ORAL DAILY, (Reported) Metformin Hcl* (Glucophage*), 1,000 MG ORAL BIDAC, (Reported) Scheduled PRN Acetaminophen With Codeine (T#4) (Tylenol #4 Tab*), 1 TAB ORAL Q4HR PRN for For Pain, (Reported) Patient History Healthcare decision maker Resuscitation status Advanced Directive on File Physical Exam Last 24 Hour Vital Signs Date Time Temp Pulse Resp B/P (MAP) Pulse Ox O2 Delivery O2 Flow Rate FiO2 10/24/20 08:53 92 120/67 10/24/20 08:00 98.0 92 22 120/67 (84) 96 10/24/20 04:00 96 10/24/20 04:00 98.1 99 20 139/57 (84) 97 10/24/20 00:00 98 10/24/20 00:00 98.1 97 20 124/66 (85) 97 10/23/20 21:00 Nasal Cannula 2.0 10/23/20 20:00 95 10/23/20 20:00 98.0 93 20 127/74 (91) 95 10/23/20 16:00 135 10/23/20 16:00 98.6 99 20 152/91 (111) 96 10/23/20 12:00 98.0 91 18 145/88 (107) 95 10/23/20 12:00 92 Intake and Output 10/23/20 10/24/20 19:00 07:00 Intake Total 645 ml Output Total 400 ml 450 ml Balance 245 ml -450 ml Intake Oral 120 ml IV Total 525 ml Output Urine Total 400 ml 450 ml Laboratory Tests Test 10/23/20 12:21 10/23/20 22:17 10/24/20 06:42 POC Whole Blood Glucose 119 MG/DL (74-106) H 89 MG/DL (74-106) Pending Height (Feet): 5 Height (Inches): 1.00 Weight (Pounds): 135 Medications Current Medications Medications (Trade) Dose Ordered Sig/Elen Route PRN Reason Start Time Stop Time Status Last Admin Dose Admin Acetaminophen (Tylenol) 500 mg Q6H PRN ORAL Mild Pain (Pain Scale 1-3) 10/23/20 10:15 11/22/20 10:14 Acetaminophen (Tylenol) 500 mg TID ORAL 10/23/20 13:00 11/22/20 12:59 10/24/20 08:54 Acetaminophen/ Hydrocodone Bitart ([place] 5/325) 1 tab Q4H PRN ORAL Moderate Pain (Pain Scale 4-6) 10/23/20 10:15 10/30/20 10:14 10/24/20 08:53 Amlodipine Besylate (Norvasc) 10 mg DAILY ORAL 10/24/20 09:00 11/23/20 08:59 10/24/20 08:53 Aspirin (Ecotrin) 81 mg DAILY ORAL 10/24/20 09:00 12/08/20 08:59 10/24/20 08:53 Azithromycin 500 mg/Dextrose 275 ml @ 275 mls/hr Q24HRS IV 10/23/20 12:00 10/29/20 12:59 10/23/20 13:40 Ceftriaxone Sodium 1 gm/ Dextrose 55 ml @ 110 mls/hr Q24H IVPB 10/23/20 10:15 10/30/20 10:14 10/23/20 12:15 Dextrose (Dextrose 50%) 25 ml Q30M PRN IV Hypoglycemia 10/23/20 10:15 01/21/21 10:14 Dextrose (Dextrose 50%) 50 ml Q30M PRN IV Hypoglycemia 10/23/20 10:15 01/21/21 10:14 Heparin Sodium (Porcine) (Heparin 5000 units/ml) 5,000 units EVERY 12 HOURS SUBQ 10/23/20 21:00 12/07/20 20:59 10/24/20 08:55 Hydromorphone HCl (Dilaudid) 0.5 mg Q6H PRN IVP Severe Pain (Pain Scale 7-10) 10/23/20 10:15 10/30/20 10:14 Insulin Aspart (NovoLOG) BEFORE MEALS AND HS SUBQ 10/23/20 11:30 01/21/21 11:29 10/24/20 06:56 Metformin HCl (Glucophage) 1,000 mg BIAC ORAL 10/23/20 16:30 11/22/20 16:29 10/24/20 06:55 Ondansetron HCl (Zofran) 4 mg Q6H PRN IVP Nausea & Vomiting 10/23/20 07:15 11/22/20 07:14 10/23/20 07:23 Sodium Chloride 1,000 ml @ 75 mls/hr [id number] IV 10/23/20 11:23 11/22/20 11:22 10/24/20 00:40 Assessment/Plan Assessment/Plan: Hematology Consultation GILES CANTRELL: Jose C Figueroa RFC: Coagulopathy, Anemia DOS: 10/24/2020 ID 80-year-old female presents for evaluation. Brought in by family. States she has been having chest pain for the last 3 days. Patient states she is having chest pain or shortness of breath. Pain is dull, 10 out of 10, nonradiating. Denies cough. Denies fevers or chills. Denies nausea or vomiting. No other aggravating relieving factors. Denies any other associated symptoms, labs are noted, no bleeding, meds reviewed. Allergies: IBUPROFEN (Verified Allergy, Intermediate, rash, 01/24/13) prescription strength only MORPHINE (Verified Allergy, Intermediate, rash, 01/24/13) OXYCODONE (Unverified Allergy, Unknown, 03/09/15) pt cant remember COVID-19 Screening Contact w/high risk pt: No Experienced COVID-19 symptoms?: No COVID-19 Testing performed BEND UP: No Patient History Past Medical History: HTN Past Surgical History: other - Hysterectomy Pertinent Family History: none Social History: Denies: smoking, alcohol use, drug use Now: No Immunizations: UTD Reviewed Nursing Documentation: PMH: Agreed; PSxH: Agreed Nursing Documentation-PMH Hx Hypertension: Yes Hx Pacemaker: No Hx Asthma: No Hx COPD: No Hx Diabetes: Yes Hx Cancer: No Hx Gastrointestinal Problems: Yes - HYSTERECTOMY 68. Hx Dialysis: No Hx Neurological Problems: Yes - FORGETFUL Hx Cerebrovascular Accident: No Hx Seizures: No Hx Headaches: Yes Review of Systems All Other Systems: negative except mentioned in HPI Physical Exam Vitals: noted General Appearance: no apparent distres Head: normocephalic, atraumatic Eyes: bilateral eye normal inspection, bilateral eye PERRL ENT: hearing grossly normal, normal pharynx, no angioedema, normal voice Neck: full range of motion, supple/symm/no masses Respiratory: chest non-tender, lungs clear, normal breath sounds, speaking full sentences Cardiovascular: regular rate, rhythm, no edema Gastrointestinal: normal bowel sounds, non tender Rectal: deferred Genitourinary: normal inspection, no CVA tenderness Neurologic: alert, motor strength/tone normal, oriented x3 Reflexes: 3+ bicep (R), 3+ bicep (L), 3+ tricep (R), 3+ tricep (L), 3+ knee (R), 3+ knee (L) Lymphatic: no adenopathy Labs; reviewed Imaging: noted Assessment and Recs # Coagulopathy likely due to underlying infection --> inr elevated, obtain mixing study for ptt/pt --> treat underlying infection -> vitamin k as needed # Anemia of chronic disease -> hgb 11 --> likely hemoconcentrated, on ivf # Jesus pneumonia r/o covid --> abx per pulm --> r/o covid19 # Weight loss --> age appropriate cancer screening # Failure of thrive -> pt/ot -> daily weights # Intractable pain rt knee and lt shoulder # chf # dm # htn # djd Appreciate consultation and dw Arturo Robles MD Oct 24, 2020 09:24
--- NOTE | 2020-10-24 10:00 | NUR ---
RD ASSESSMENT & RECOMMENDATIONS SEE CARE ACTIVITY FOR COMPLETE ASSESSMENT DAILY ESTIMATED NEEDS: Needs based on Pulmonary 57.2kg 25-30 kcals/kg 1664-2281 total kcals 1-1.5 g protein/kg 57-86 g total protein 25-30 mL/kg 1716 total fluid mLs NUTRITION DIAGNOSIS: Altered nutrition related lab values r/t clinical status as evidenced by elev LD (367), elev BNP (1157). CURRENT DIET: CCHO MED PO DIET RECOMMENDATIONS: CCHO LOW + Glucerna BID in b/w meals ADDITIONAL RECOMMENDATIONS: 1) Obtain daily calibrated bed scale wts 2) Monitor po intake, need for Kcal count. -> adm w/ FTT and possible wt loss 3) Add Glucerna 1 tetra BID in b/w meals
[2020-10-24] MEDS: cefTRIAXone 1 GM in D5W 55 ML IVPB SCH (10:10)
[2020-10-24 10:59] LABS: % IRON SATURATION 7 % (15-50); IRON 13 ug/dL (50-175); TOTAL IRON BINDING CAPACITY 194 ug/dL (250-450)
[2020-10-24 11:13] LABS: FERRITIN 154 NG/ML (8-388); LACTATE DEHYDROGENASE 370 U/L (81-234)
--- NOTE | 2020-10-24 11:54 | Consultation ---
History of Present Illness General Date patient seen: Oct 24, 2020 Chief Complaint: Chest Pain Present Illness Allergies: Coded Allergies: IBUPROFEN (Verified Allergy, Intermediate, rash, 01/24/13) prescription strength only MORPHINE (Verified Allergy, Intermediate, rash, 01/24/13) OXYCODONE (Unverified Allergy, Unknown, 03/09/15) pt cant remember Medication History Scheduled Amlodipine Besylate (Norvasc), 10 MG ORAL DAILY, (Reported) Aspirin* (Aspir 81*), 81 MG ORAL DAILY, (Reported) Metformin Hcl* (Glucophage*), 1,000 MG ORAL BIDAC, (Reported) Scheduled PRN Acetaminophen With Codeine (T#4) (Tylenol #4 Tab*), 1 TAB ORAL Q4HR PRN for For Pain, (Reported) Patient History Healthcare decision maker Resuscitation status Advanced Directive on File Physical Exam Last 24 Hour Vital Signs Date Time Temp Pulse Resp B/P (MAP) Pulse Ox O2 Delivery O2 Flow Rate FiO2 10/24/20 08:53 92 120/67 10/24/20 08:00 98.0 92 22 120/67 (84) 96 10/24/20 04:00 96 10/24/20 04:00 98.1 99 20 139/57 (84) 97 10/24/20 00:00 98 10/24/20 00:00 98.1 97 20 124/66 (85) 97 10/23/20 21:00 Nasal Cannula 2.0 10/23/20 20:00 95 10/23/20 20:00 98.0 93 20 127/74 (91) 95 10/23/20 16:00 135 10/23/20 16:00 98.6 99 20 152/91 (111) 96 10/23/20 12:00 98.0 91 18 145/88 (107) 95 10/23/20 12:00 92 Intake and Output 10/23/20 10/24/20 19:00 07:00 Intake Total 645 ml Output Total 400 ml 450 ml Balance 245 ml -450 ml Intake Oral 120 ml IV Total 525 ml Output Urine Total 400 ml 450 ml Laboratory Tests Test 10/23/20 12:21 10/23/20 22:17 10/24/20 06:42 10/24/20 10:20 POC Whole Blood Glucose 119 MG/DL (74-106) H 89 MG/DL (74-106) Pending PTT Mixing Study Pending APTT Patient/Control Mix Pending Mix PTT Incubation Time Pending Mix PTT Normal/Saline 1:1 Immediate Pending Thrombin Time Normal Plasma Pending Iron Level 13 ug/dL (50-175) L Total Iron Binding Capacity 194 ug/dL (250-450) L Percent Iron Saturation 7 % (15-50) L Unsaturated Iron Binding 181 ug/dL (112-346) Ferritin 154 NG/ML (8-388) Lactate Dehydrogenase 370 U/L (81-234) H Height (Feet): 5 Height (Inches): 1.00 Weight (Pounds): 135 Medications Current Medications Medications (Trade) Dose Ordered Sig/Elen Route PRN Reason Start Time Stop Time Status Last Admin Dose Admin Acetaminophen (Tylenol) 500 mg Q6H PRN ORAL Mild Pain (Pain Scale 1-3) 10/23/20 10:15 11/22/20 10:14 Acetaminophen (Tylenol) 500 mg TID ORAL 10/23/20 13:00 11/22/20 12:59 10/24/20 08:54 Acetaminophen/ Hydrocodone Bitart ([place] 5/325) 1 tab Q4H PRN ORAL Moderate Pain (Pain Scale 4-6) 10/23/20 10:15 10/30/20 10:14 10/24/20 08:53 Amlodipine Besylate (Norvasc) 10 mg DAILY ORAL 10/24/20 09:00 11/23/20 08:59 10/24/20 08:53 Aspirin (Ecotrin) 81 mg DAILY ORAL 10/24/20 09:00 12/08/20 08:59 10/24/20 08:53 Azithromycin 500 mg/Dextrose 275 ml @ 275 mls/hr Q24HRS IV 10/23/20 12:00 10/29/20 12:59 10/23/20 13:40 Ceftriaxone Sodium 1 gm/ Dextrose 55 ml @ 110 mls/hr Q24H IVPB 10/23/20 10:15 10/30/20 10:14 10/24/20 10:10 Dextrose (Dextrose 50%) 25 ml Q30M PRN IV Hypoglycemia 10/23/20 10:15 01/21/21 10:14 Dextrose (Dextrose 50%) 50 ml Q30M PRN IV Hypoglycemia 10/23/20 10:15 01/21/21 10:14 Heparin Sodium (Porcine) (Heparin 5000 units/ml) 5,000 units EVERY 12 HOURS SUBQ 10/23/20 21:00 12/07/20 20:59 10/24/20 08:55 Hydromorphone HCl (Dilaudid) 0.5 mg Q6H PRN IVP Severe Pain (Pain Scale 7-10) 10/23/20 10:15 10/30/20 10:14 Insulin Aspart (NovoLOG) BEFORE MEALS AND HS SUBQ 10/23/20 11:30 01/21/21 11:29 10/24/20 06:56 Metformin HCl (Glucophage) 1,000 mg BIAC ORAL 10/23/20 16:30 11/22/20 16:29 10/24/20 06:55 Ondansetron HCl (Zofran) 4 mg Q6H PRN IVP Nausea & Vomiting 10/23/20 07:15 11/22/20 07:14 10/23/20 07:23 Sodium Chloride 1,000 ml @ 75 mls/hr [id number] IV 10/23/20 11:23 11/22/20 11:22 10/24/20 00:40 Assessment/Plan Assessment/Plan: (1) Multiple joint pain (2) Degenerative Joint disease seen dictated Jb Seals Oct 24, 2020 11:54
[2020-10-24 12:00] VITALS: BP 111/55
[2020-10-24] MEDS: Azithromycin 500 MG in D5W 275 ML IV SCH (12:22)
[2020-10-24] MEDS ORDERED: Tubing IV Secondary IV ONE (13:59)
--- NOTE | 2020-10-24 13:59 | Consultation ---
DATE OF CONSULTATION: 10/24/2020 PAIN MANAGEMENT CONSULTATION CONSULTING PHYSICIAN: Ciera Mehta MD. REFERRING PHYSICIAN: Tom Figueroa MD PHYSICIAN [employer]PING [employer]ENT[employer] MANAGER: ELADIO Macias CHIEF COMPLAINT: Generalized body pain. HISTORY OF PRESENT ILLNESS: This is a 80-year-old female who is being been seen on the telemetry floor of [facility] for comprehensive pain management consultation. The patient is a known patient from previous hospital admissions, now admitted under the care of Dr. Figueroa due to failure to thrive, acute coronary syndrome, pneumonia, possible COVID-19. At this time, the patient is comfortable. She is in bed. No sign of pain or distress. The patient was started on [place] 5/325 one tablet every four hours needed for moderate pain, Dilaudid 0.5 mg IV every six hours as needed for severe pain. However, the patient has not received any Dilaudid and only received [place] two doses in the last 24 hours. She has no other complaints at this time. REVIEW OF SYSTEMS: Denies rash, fever, chills, sweating, dizziness, drowsiness, sore throat, or change in weight. No nausea, vomiting, diarrhea, or blood in the stool. No dysuria. PHYSICAL EXAMINATION: GENERAL: Alert, awake, and oriented. VITAL SIGNS: Blood pressure 110/67, heart rate 92, oxygen saturation 96%, respirations 22, temperature 98 degrees Fahrenheit. LUNGS: Decreased breath sounds bilaterally. HEART: S1 and S2 regular. ABDOMEN: Soft and nontender. BACK: Range of motion is decreased in flexion and extension. EXTREMITIES: Upper and lower extremity range of motion is decreased due to the patient's condition. No cyanosis. No clubbing. Sensory is reduced. Reflexes are not obtainable. No adenopathy. ASSESSMENT AND PLAN: This is a 80-year-old female with multiple joint pain, degenerative joint disease. The patient will be continued on [place] as needed. We will discontinue the Dilaudid. The patient was discussed with Dr. Mehta and Dr. Mehta concurred. We will follow up with the patient. Thank you very much for the courtesy of this consultation. Ciera Mehta M.D. ELADIO Macias DR: Kelly JOB#: [id number] CC:
[2020-10-24 15:48] VITALS: BP 115/70
--- NOTE | 2020-10-24 16:34 | Cardiac Electrophysiology PN ---
Subjective Subjective [id number] Objective Last 24 Hour Vital Signs Date Time Temp Pulse Resp B/P (MAP) Pulse Ox O2 Delivery O2 Flow Rate FiO2 10/24/20 15:48 97.7 83 22 115/70 (85) 96 10/24/20 12:00 97.9 90 22 111/55 (73) 95 10/24/20 12:00 89 10/24/20 09:00 Nasal Cannula 2.0 10/24/20 08:53 92 120/67 10/24/20 08:00 89 10/24/20 08:00 98.0 92 22 120/67 (84) 96 10/24/20 04:00 96 10/24/20 04:00 98.1 99 20 139/57 (84) 97 10/24/20 00:00 98 10/24/20 00:00 98.1 97 20 124/66 (85) 97 10/23/20 21:00 Nasal Cannula 2.0 10/23/20 20:00 95 10/23/20 20:00 98.0 93 20 127/74 (91) 95 Intake and Output 10/23/20 10/24/20 19:00 07:00 Intake Total 645 ml Output Total 400 ml 450 ml Balance 245 ml -450 ml Intake Oral 120 ml IV Total 525 ml Output Urine Total 400 ml 450 ml Laboratory Tests Test 10/23/20 22:17 10/24/20 06:42 10/24/20 10:20 10/24/20 12:09 POC Whole Blood Glucose 89 MG/DL (74-106) Pending 117 MG/DL (74-106) H PTT Mixing Study Pending APTT Patient/Control Mix Pending Mix PTT Incubation Time Pending Mix PTT Normal/Saline 1:1 Immediate Pending Thrombin Time Normal Plasma Pending Iron Level 13 ug/dL (50-175) L Total Iron Binding Capacity 194 ug/dL (250-450) L Percent Iron Saturation 7 % (15-50) L Unsaturated Iron Binding 181 ug/dL (112-346) Ferritin 154 NG/ML (8-388) Lactate Dehydrogenase 370 U/L (81-234) H Pacheco Fernández MD Oct 24, 2020 16:34
--- NOTE | 2020-10-24 18:05 | NUR ---
NURSE HAND-OFF REPORT: Important Events on Shift:admission; patient pulling out devices and IV, refusing care Patient Status: confused Diet: cardiac; NPO post MN Pending Orders: abd US 10/25 Pending Results/Labs:mrsa, vre, cre Pending MD notification: Latest Vital Signs: Temperature 97.7 , Pulse 82 , B/P 115 /70 , Respiratory Rate 22 , O2 SAT 96 , Nasal Cannula, O2 Flow Rate 2.0 . Vital Sign Comment: EKG Rhythm: Sinus Rhythm Rhythm change?: N Notified?: N -Dr. Henry CANTRELL Response: New consult With Trish Tobin Iniguez Fall Score: 60 Fall Risk: High Risk Safety Measures: Call light Within Reach, Bed Alarm Zone 1, Side Rails Side Rails x3, Bed position Low and Locked. Fall Precautions: Yellow Socks Patient Fall Education. Addendum: 10/24/20 at 1807 by Saskia Reynolds RN charting entered in error, meant for another patient.
--- NOTE | 2020-10-24 18:07 | NUR ---
NURSE HAND-OFF REPORT: Important Events on Shift:seen by Dr Fernández Patient Status: drowsy, complains of right shoulder pain Diet: ccho med, poor PO intake Pending Orders: 2d echo Pending Results/Labs: Pending MD notification: Latest Vital Signs: Temperature 97.7 , Pulse 82 , B/P 115 /70 , Respiratory Rate 22 , O2 SAT 96 , Nasal Cannula, O2 Flow Rate 2.0 . Vital Sign Comment: EKG Rhythm: Sinus Rhythm Rhythm change?: N MD Notified?: N -Dr. Henry CANTRELL Response: New consult With Trish Latest Iniguez Fall Score: 60 Fall Risk: High Risk Safety Measures: Call light Within Reach, Bed Alarm Zone 1, Side Rails Side Rails x3, Bed position Low and Locked. Fall Precautions: Yellow Socks Patient Fall Education . Addendum: 10/24/20 at 1938 by Saskia Reynolds RN HAND-OFF: Report given to Patience CORONADO.
--- NOTE | 2020-10-24 18:59 | Consultation ---
DATE OF CONSULTATION: 10/24/2020 PULMONARY CONSULTATION CONSULTING PHYSICIAN: Mani Betancur MD HISTORY OF PRESENT ILLNESS: This is a 80-year-old female who came to the hospital with chest pain. She was brought in by family. The patient reports nonspecific left upper quadrant and left chest wall pain. Overnight, she was seen by Cardiology and Pain Management, and admitted to the hospital care. I have been asked for pulmonary consultation with respect to respiratory status. At this time, the patient is saturating 92% with oxygen. Her imaging studies have been obtained, which show bilateral pulmonary infiltrates and multifocal pneumonia. The patient has mild leukocytosis with white count of 12,000. Remainder of lab workup has been negative. She denies any cough at this point in time. Her COVID testing is pending at this time. PAST MEDICAL HISTORY: Notable for hypertension. PREVIOUS SURGERIES: Hysterectomy. SOCIAL HISTORY: No alcohol or tobacco usage. REVIEW OF SYSTEMS: Denies any headaches, hematemesis, melena, hematochezia, night sweats, or weight loss. PHYSICAL EXAMINATION: GENERAL: Reveals a 80-year-old female. VITAL SIGNS: Blood pressure 115/70, heart rate 80, respirations , and she is afebrile. HEENT: Unremarkable. LUNGS: Clear breath sounds bilaterally. ABDOMEN: Soft. EXTREMITIES: There is no edema. NEUROLOGIC: Nonfocal. LABORATORY AND DIAGNOSTIC DATA: Lab testing is notable for leukocytosis of 12,000. She has bilateral pulmonary infiltrates. IMPRESSION: 1. Bilateral pneumonia. 2. Hypertension. DISCUSSION: Agree with fluids and broad-spectrum antibiotics. Await COVID-19 testing. Continue home medications including metformin and insulin sliding scale. We will follow carefully. Mani Betancur M.D. DR: Dedra JOB#: [id number] CC:
--- NOTE | 2020-10-24 19:15 | Consultation ---
DATE OF CONSULTATION: 10/24/2020 CARDIOLOGY CONSULTATION CONSULTING PHYSICIAN: Pacheco Fernández MD REFERRING PHYSICIAN: Luis Figueroa MD REASON FOR CONSULTATION: Long run of 16 beats of ventricular tachycardia. HISTORY OF PRESENT ILLNESS: Patient is a 80-year-old lady with history of hypertension, diabetes, and arthritis of both knees, mostly on the left as well as degenerative joint disease, who was brought to the hospital for failure to thrive as patient has not been getting up and was lying on the bed for the last few days and has not been eating. Patient also has generalized weakness and shortness of breath. While on telemetry, patient has 16 beats of ventricular tachycardia, rate of 180 beats per minute on 10/23/2020 at 16:56. Cardiac electrophysiology consultation was requested for further evaluation. REVIEW OF SYSTEMS: Negative other than what was mentioned in the history of present illness. PAST MEDICAL HISTORY: As mentioned above. FAMILY HISTORY: Noncontributory. SOCIAL HISTORY: She does not smoke or drink alcohol. PHYSICAL EXAMINATION: VITAL SIGNS: Show blood pressure of 115/70, pulse 83, respirations 18, temperature 97.7. HEAD AND NECK: Showed no JVD. LUNGS: Coarse rhonchi. CARDIOVASCULAR: Shows regular S1 and S2 with no gallop or murmur. ABDOMEN: Soft. EXTREMITIES: No pitting edema. LABORATORY AND DIAGNOSTIC DATA: Labs show white count 12.2, hemoglobin 11.1, hematocrit 35.8, and platelet count 441. Sodium is 142, potassium 3.7, BUN of 24, creatinine 1. First troponin is negative. LDH is 367. Chest x-ray showed bilateral infiltrate tubular with multifocal pneumonia. ASSESSMENT AND PLAN: 1. Long run of nonsustained ventricular tachycardia. We will completely rule out OR protocol. Get an echocardiogram for evaluation of ejection fraction and wall motion abnormality and check electrolytes as well. 2. Shortness of breath and lung infiltrate. Patient will be ruled out for COVID. 3. Hypertension, on Norvasc 10 mg daily. 4. Diabetes, on metformin. 5. Pneumonia, on azithromycin and ceftriaxone. Thank you very much for allowing me to participate in the care of this patient. Please do not hesitate to contact me for any questions regarding my evaluation. Pacheco Fernández M.D. DR: FLOWER JOB#: [id number] CC:
[2020-10-24 20:00] VITALS: BP 128/75
--- NOTE | 2020-10-24 20:00 | NUR ---
NURSE NOTES: RECEIVED PATIENT LYING IN BED, APPEAR TO BE ASLEEP, AWAKENED TO NAME, NO SIGNS AND SYMPTOMS OF ACUTE CARDIO RESPIRATORY DISTRESS/SHORTNESS OF BREATH, DENIES CHEST PAIN, NO PERIPHERAL EDEMA NOTED, SINUS RHYTHM ON TELEGR[employer]ER. ISOLATION PRECAUTIONS OBSERVED/PUI COVID 19. ABDOMEN SOFT/NON DISTENDED/NON TENDER/AUDIBLE BOWEL SOUNDS, NO REPORT OF N/V/D. BELL CATHETER INTACT/PATENT/DRAINING SLIGHTLY CLOUDY YELLOW URINE VIA GRAVITY. SIDE RAILS UP X3/BED IN LOWEST POSITION FOR SAFETY, FREQUENT ROUNDING FOR SAFETY/NEEDS.
[2020-10-25] VITALS: BP 109/72
[2020-10-25] MEDS: HYDROcodone/Acetamin 5/325 tab ORAL PRN ×2 (00:04→05:59)
[2020-10-25 04:00] VITALS: BP 124/73
[2020-10-25] MEDS: metFORMIN 500mg tab ORAL SCH ×2 (06:22→17:31)
[2020-10-25] MEDS: NovoLOG Insulin Flexpen SUBQ SCH ×4 (06:22→21:00)
[2020-10-25 06:35] LABS: ANION GAP 5 mmol/L (5-15); BLOOD UREA NITROGEN 12 mg/dL (7-18); CALCIUM 8.3 MG/DL (8.5-10.1); CARBON DIOXIDE 32 MMOL/L (21-32); CHLORIDE 99 MMOL/L (98-107); CREATININE 0.5 MG/DL (0.55-1.30); POTASSIUM 3.3 MMOL/L (3.5-5.1); SODIUM 136 MMOL/L (136-145)
--- NOTE | 2020-10-25 06:40 | Hematology/Onc Progress Note ---
Assessment/Plan Assessment/Plan Assessment and Recs # Coagulopathy likely due to underlying infection --> inr elevated, obtain mixing study for ptt/pt --> treat underlying infection -> vitamin k as needed # Anemia of chronic disease -> hgb 11 --> likely hemoconcentrated, on ivf # Jesus pneumonia r/o covid --> abx per pulm --> r/o covid19 # Weight loss --> age appropriate cancer screening # Failure of thrive -> pt/ot -> daily weights # Intractable pain rt knee and lt shoulder # chf # dm # htn # djd Appreciate consultation and dw RN Subjective HEENT: Denies: no symptoms, eye pain, blurred vision, tearing, double vision, ear pain, ear discharge, nose pain, nose congestion, throat pain, throat swelling, mouth pain, mouth swelling, other Cardiovascular: Denies: no symptoms, chest pain, edema, irregular heart rate, lightheadedness, palpitations, syncope, other Respiratory: Denies: no symptoms, cough, shortness of breath, SOB with excertion, SOB at rest, sputum, wheezing, other Gastrointestinal/Abdominal: Denies: no symptoms, abdomen distended, abdominal pain, black stools, tarry stools, blood in stool, constipated, diarrhea, difficulty swallowing, nausea, poor appetite, poor fluid intake, rectal bleeding, vomiting, other Genitourinary: Denies: no symptoms, burning, discharge, frequency, flank pain, hematuria, incontinence, pain, urgency, other Neurologic/Psychiatric: Denies: no symptoms, anxiety, depressed, emotional problems, headache, numbness, paresthesia, pre-existing deficit, seizure, tingling, tremors, weakness, other Endocrine: Denies: no symptoms, excessive sweating, flushing, intolerance to cold, intolerance to heat, increased hunger, increased thirst, increased urine, unexplained weight gain, unexplained weight loss, other Hematologic/Lymphatic: Denies: no symptoms, anemia, easy bleeding, easy bruising, adenopathy, other Allergies: Coded Allergies: IBUPROFEN (Verified Allergy, Intermediate, rash, 01/24/13) prescription strength only MORPHINE (Verified Allergy, Intermediate, rash, 01/24/13) OXYCODONE (Unverified Allergy, Unknown, 03/09/15) pt cant remember Subjective 10/25 stephens intact, has been refusing care, no bleeding, stephens intact Objective Objective Current Medications Medications (Trade) Dose Ordered Sig/Elen Route PRN Reason Start Time Stop Time Status Last Admin Dose Admin Acetaminophen (Tylenol) 500 mg Q6H PRN ORAL Mild Pain (Pain Scale 1-3) 10/23/20 10:15 11/22/20 10:14 Acetaminophen (Tylenol) 500 mg TID ORAL 10/23/20 13:00 11/22/20 12:59 10/24/20 17:04 Acetaminophen/ Hydrocodone Bitart ([place] 5/325) 1 tab Q4H PRN ORAL Moderate Pain (Pain Scale 4-6) 10/23/20 10:15 10/30/20 10:14 10/25/20 05:59 Amlodipine Besylate (Norvasc) 10 mg DAILY ORAL 10/24/20 09:00 11/23/20 08:59 10/24/20 08:53 Aspirin (Ecotrin) 81 mg DAILY ORAL 10/24/20 09:00 12/08/20 08:59 10/24/20 08:53 Azithromycin 500 mg/Dextrose 275 ml @ 275 mls/hr Q24HRS IV 10/23/20 12:00 10/29/20 12:59 10/24/20 12:22 Ceftriaxone Sodium 1 gm/ Dextrose 55 ml @ 110 mls/hr Q24H IVPB 10/23/20 10:15 10/30/20 10:14 10/24/20 10:10 Dextrose (Dextrose 50%) 25 ml Q30M PRN IV Hypoglycemia 10/23/20 10:15 01/21/21 10:14 Dextrose (Dextrose 50%) 50 ml Q30M PRN IV Hypoglycemia 10/23/20 10:15 01/21/21 10:14 Heparin Sodium (Porcine) (Heparin 5000 units/ml) 5,000 units EVERY 12 HOURS SUBQ 10/23/20 21:00 12/07/20 20:59 10/24/20 20:39 Insulin Aspart (NovoLOG) BEFORE MEALS AND HS SUBQ 10/23/20 11:30 01/21/21 11:29 10/24/20 06:56 Metformin HCl (Glucophage) 1,000 mg BIAC ORAL 10/23/20 16:30 11/22/20 16:29 10/24/20 06:55 Ondansetron HCl (Zofran) 4 mg Q6H PRN IVP Nausea & Vomiting 10/23/20 07:15 11/22/20 07:14 10/23/20 07:23 Sodium Chloride 1,000 ml @ 75 mls/hr [id number] IV 10/23/20 11:23 11/22/20 11:22 10/25/20 03:23 Last 24 Hour Vital Signs Date Time Temp Pulse Resp B/P (MAP) Pulse Ox O2 Delivery O2 Flow Rate FiO2 10/25/20 03:14 89 10/25/20 00:34 98.1 10/25/20 00:00 98.7 79 20 109/72 (84) 97 10/25/20 00:00 85 10/24/20 21:00 Nasal Cannula 2.0 10/24/20 20:00 98.1 88 20 128/75 (92) 98 10/24/20 19:07 82 10/24/20 16:00 82 10/24/20 15:48 97.7 83 22 115/70 (85) 96 10/24/20 12:00 97.9 90 22 111/55 (73) 95 10/24/20 12:00 89 10/24/20 09:00 Nasal Cannula 2.0 10/24/20 08:53 92 120/67 10/24/20 08:00 89 10/24/20 08:00 98.0 92 22 120/67 (84) 96 10/24/20 04:00 96 10/24/20 04:00 98.1 99 20 139/57 (84) 97 10/24/20 00:00 98 10/24/20 00:00 98.1 97 20 124/66 (85) 97 10/23/20 21:00 Nasal Cannula 2.0 10/23/20 20:00 95 10/23/20 20:00 98.0 93 20 127/74 (91) 95 10/23/20 16:00 135 10/23/20 16:00 98.6 99 20 152/91 (111) 96 10/23/20 12:00 98.0 91 18 145/88 (107) 95 10/23/20 12:00 92 10/23/20 09:00 Nasal Cannula 2.0 10/23/20 08:10 Nasal Cannula 2.0 10/23/20 08:07 98.7 10/23/20 08:00 108 10/23/20 07:50 98.7 103 20 157/89 98 Room Air 10/23/20 07:35 103 20 157/89 98 Room Air Intake and Output 10/24/20 10/25/20 19:00 07:00 Intake Total 75 ml 945 ml Output Total 450 ml 500 ml Balance -375 ml 445 ml Intake Oral 120 ml IV Total 75 ml 825 ml Output Urine Total 450 ml 500 ml Labs Test 10/22/20 16:42 10/22/20 19:13 10/23/20 12:21 10/23/20 22:17 White Blood Count 12.2 K/UL (4.8-10.8) Red Blood Count 3.68 M/UL (4.20-5.40) Hemoglobin 11.1 G/DL (12.0-16.0) Hematocrit 35.8 % (37.0-47.0) Mean Corpuscular Volume 97 FL (80-99) Mean Corpuscular Hemoglobin 30.1 PG (27.0-31.0) Mean Corpuscular Hemoglobin Concent 31.0 G/DL (32.0-36.0) Red Cell Distribution Width 16.9 % (11.6-14.8) Platelet Count 441 K/UL (150-450) Mean Platelet Volume 6.7 FL (6.5-10.1) Neutrophils (%) (Auto) 64.5 % (45.0-75.0) Lymphocytes (%) (Auto) 19.5 % (20.0-45.0) Monocytes (%) (Auto) 6.7 % (1.0-10.0) Eosinophils (%) (Auto) 8.1 % (0.0-3.0) Basophils (%) (Auto) 1.2 % (0.0-2.0) Sodium Level 142 MMOL/L (136-145) Potassium Level 3.7 MMOL/L (3.5-5.1) Chloride Level 102 MMOL/L (98-107) Carbon Dioxide Level 31 MMOL/L (21-32) Anion Gap 9 mmol/L (5-15) Blood Urea Nitrogen 24 mg/dL (7-18) Creatinine 1.0 MG/DL (0.55-1.30) Estimat Glomerular Filtration Rate > 60 mL/min (>60) Glucose Level 111 MG/DL (74-106) Lactic Acid Level 1.60 mmol/L (0.4-2.0) Calcium Level 9.4 MG/DL (8.5-10.1) Ferritin 171 NG/ML (8-388) Total Bilirubin 0.4 MG/DL (0.2-1.0) Aspartate Amino Transf (AST/SGOT) 34 U/L (15-37) Alanine Aminotransferase (ALT/SGPT) 14 U/L (12-78) Alkaline Phosphatase 95 U/L (46-116) Lactate Dehydrogenase 367 U/L (81-234) Troponin I 0.007 ng/mL (0.000-0.056) C-Reactive Protein, Quantitative 9.3 mg/dL (0.00-0.90) Pro-B-Type Natriuretic Peptide 1152 pg/mL (0-125) Total Protein 9.8 G/DL (6.4-8.2) Albumin 2.9 G/DL (3.4-5.0) Globulin 6.9 g/dL Albumin/Globulin Ratio 0.4 (1.0-2.7) Prothrombin Time 14.1 SEC (9.30-11.50) Prothromb Time International Ratio 1.3 (0.9-1.1) Activated Partial Thromboplast Time 27 SEC (23-33) D-Dimer 1.17 mg/L FEU (0.00-0.49) Urine Color Yellow Urine Appearance Slightly cloudy Urine pH 6 (4.5-8.0) Urine Specific [place] 1.015 (1.005-1.035) Urine Protein 2+ (NEGATIVE) Urine Glucose (UA) Negative (NEGATIVE) Urine Ketones 1+ (NEGATIVE) Urine Blood Negative (NEGATIVE) Urine Nitrite Negative (NEGATIVE) Urine Bilirubin Negative (NEGATIVE) Urine Urobilinogen Normal MG/DL (0.0-1.0) Urine Leukocyte Esterase 1+ (NEGATIVE) Urine RBC 0-2 /HPF (0 - 2) Urine WBC 2-4 /HPF (0 - 2) Urine Squamous Epithelial Cells Few /LPF (NONE/OCC) Urine Bacteria Few /HPF (NONE) Urine Hyaline Casts 10-15 /LPF (NONE) Urine Mucus Moderate /LPF (NONE/OCC) Urine Opiates Screen Negative (NEGATIVE) Urine Barbiturates Screen Negative (NEGATIVE) Phencyclidine (PCP) Screen Negative (NEGATIVE) Urine Amphetamines Screen Negative (NEGATIVE) Urine Benzodiazepines Screen Positive (NEGATIVE) Urine Cocaine Screen Negative (NEGATIVE) Urine Marijuana (THC) Screen Negative (NEGATIVE) POC Whole Blood Glucose 119 MG/DL (74-106) 89 MG/DL (74-106) Test 10/24/20 06:42 10/24/20 10:20 10/24/20 12:09 10/24/20 16:56 Iron Level 13 ug/dL (50-175) Total Iron Binding Capacity 194 ug/dL (250-450) Percent Iron Saturation 7 % (15-50) Unsaturated Iron Binding 181 ug/dL (112-346) Ferritin 154 NG/ML (8-388) Lactate Dehydrogenase 370 U/L (81-234) POC Whole Blood Glucose 117 MG/DL (74-106) 99 MG/DL (74-106) Test 10/24/20 20:38 10/25/20 05:30 Troponin I 0.000 ng/mL (0.000-0.056) Height (Feet): 5 Height (Inches): 1.00 Weight (Pounds): 135 Objective Physical Exam Vitals: noted General Appearance: no apparent distres Heent: bilateral eye normal inspection, bilateral eye PERRL Neck: full range of motion, supple/symm/no masses Respiratory: chest non-tender, lungs clear, normal breath sounds, speaking full sentences Cardiovascular: regular rate, rhythm, no edema Gastrointestinal: normal bowel sounds, non tender Rectal: deferred Genitourinary: normal inspection, no CVA tenderness Neurologic: alert, oriented x3 Lymphatic: no adenopathy Arturo Fields MD Oct 25, 2020 06:40
--- NOTE | 2020-10-25 07:27 | NUR ---
NURSE HAND-OFF REPORT: Important Events on Shift:[RESTED IN SHORT INTERVALS, COMFORT CARE PROVIDED THROUGHOUT THE NIGHT/BLOOD SUGAR LEVEL 79MG/DL, ASYMPTOMATIC, GIVEN OJ, TOLERATED WELL.] Patient Status: [STABLE, AFEBRILE] Diet: [CCHO M, NOTED WITH POOR APPETITE] Pending Orders: [AM LABS / 2 D ECHO] Pending Results/Labs:[] Pending MD notification:[] Latest Vital Signs: Temperature 98.1 , Pulse 89 , B/P 109 /72 , Respiratory Rate 20 , O2 SAT 97 , Nasal Cannula, O2 Flow Rate 2.0 . Vital Sign Comment: [STABLE, AFEBRILE] EKG Rhythm: Sinus Rhythm Rhythm change?: N MD Notified?: N -Dr. Henry CANTRELL Response: New consult With Trish Iniguez Fall Score: 60 Fall Risk: High Risk Safety Measures: Call light Within Reach, Bed Alarm Zone 1, Side Rails Side Rails x3, Bed position Low and Locked. Fall Precautions: Yellow Socks Patient Fall Education Report given to [IVONNE MENDOZA].
[2020-10-25 08:00] VITALS: BP 111/60
--- NOTE | 2020-10-25 08:00 | NUR ---
CASE MANAGEMENT:REVIEW PRESENTED TO ER BY IVAN CC: SOB X3 DAYS. CHEST PAIN. NO BOWEL MOVEMENT X3 DAYS SI:ACS. FTT. BILATERAL PNA 97.9 98 24 158/67 96% ON RA WBC+12.2 BUN+24 BNP+1152 IS: IV DILAUDID 1L NS BOLUS IV ZOSYN IV AZITHROMYCIN CHEST XRAY : TO TELEMETRY
[2020-10-25 08:29] LABS: EOSINOPHILS % (AUTO) 4.1 % (0.0-3.0); HEMATOCRIT 25.5 % (37.0-47.0); HEMOGLOBIN 8.2 G/DL (12.0-16.0); LYMPHOCYTES % (AUTO) 11.5 % (20.0-45.0); MEAN CORPUSCULAR VOLUME 96 FL (80-99); MONOCYTES % (AUTO) 6.4 % (1.0-10.0); NEUTROPHILS % (AUTO) 77.1 % (45.0-75.0); PLATELET COUNT 284 K/UL (150-450); RED BLOOD COUNT 2.67 M/UL (4.20-5.40); RED CELL DISTRIBUTION WIDTH 17.7 % (11.6-14.8); WHITE BLOOD COUNT 13.8 K/UL (4.8-10.8)
--- NOTE | 2020-10-25 08:43 | General Progress Note ---
Subjective Date patient seen: Oct 25, 2020 Time patient seen: 07:30 - am Allergies: Coded Allergies: IBUPROFEN (Verified Allergy, Intermediate, rash, 01/24/13) prescription strength only MORPHINE (Verified Allergy, Intermediate, rash, 01/24/13) OXYCODONE (Unverified Allergy, Unknown, 03/09/15) pt cant remember Subjective HISTORY OF PRESENT ILLNESS: This is a 80-year-old female who is being been seen on the telemetry floor of [facility]. Patient in bed and showing no signs of pain or distress. Pain has been tolerated on the Paxton to a moderate level. No new complaints at this time. REVIEW OF SYSTEMS: Denies rash, fever, chills, sweating, dizziness, drowsiness, sore throat, or change in weight. No nausea, vomiting, diarrhea, or blood in the stool. No dysuria. Objective Last 24 Hour Vital Signs Date Time Temp Pulse Resp B/P (MAP) Pulse Ox O2 Delivery O2 Flow Rate FiO2 10/25/20 08:00 97.9 89 18 111/60 (77) 99 10/25/20 06:29 98.1 10/25/20 04:00 98.3 77 18 124/73 (90) 98 10/25/20 03:14 89 10/25/20 00:34 98.1 10/25/20 00:00 98.7 79 20 109/72 (84) 97 10/25/20 00:00 85 10/24/20 21:00 Nasal Cannula 2.0 10/24/20 20:00 98.1 88 20 128/75 (92) 98 10/24/20 19:07 82 10/24/20 16:00 82 10/24/20 15:48 97.7 83 22 115/70 (85) 96 10/24/20 12:00 97.9 90 22 111/55 (73) 95 10/24/20 12:00 89 10/24/20 09:00 Nasal Cannula 2.0 10/24/20 08:53 92 120/67 Intake and Output 10/24/20 10/25/20 19:00 07:00 Intake Total 75 ml 945 ml Output Total 450 ml 500 ml Balance -375 ml 445 ml Intake Oral 120 ml IV Total 75 ml 825 ml Output Urine Total 450 ml 500 ml Laboratory Tests 10/24/20 10:20: PTT Mixing Study [Pending], APTT Patient/Control Mix [Pending], Mix PTT Incubation Time [Pending], Mix PTT Normal/Saline 1:1 Immediate [Pending], Thrombin Time Normal Plasma [Pending], Iron Level 13L, Total Iron Binding Capacity 194L, Percent Iron Saturation 7L, Unsaturated Iron Binding 181, Ferritin 154, Lactate Dehydrogenase 370H 10/24/20 12:09: POC Whole Blood Glucose 117H 10/24/20 16:56: POC Whole Blood Glucose 99 10/24/20 20:38: POC Whole Blood Glucose [Pending] 10/25/20 05:30: Sodium Level 136, Potassium Level 3.3L, Chloride Level 99, Carbon Dioxide Level 32, Anion Gap 5, Blood Urea Nitrogen 12, Creatinine 0.5L, Estimat Glomerular Filtration Rate > 60, Glucose Level 82, Calcium Level 8.3L, Troponin I 0.000, Pro-B-Type Natriuretic Peptide 692H, Thyroid Stimulating Hormone (TSH) 0.178L, Free Thyroxine 1.38 10/25/20 08:00: White Blood Count 13.8H, Red Blood Count 2.67L, Hemoglobin 8.2L, Hematocrit 25.5L, Mean Corpuscular Volume 96, Mean Corpuscular Hemoglobin 30.7, Mean Corpuscular Hemoglobin Concent 32.1, Red Cell Distribution Width 17.7H, Platelet Count 284, Mean Platelet Volume 6.7, Neutrophils (%) (Auto) 77.1H, Lymphocytes (%) (Auto) 11.5L, Monocytes (%) (Auto) 6.4, Eosinophils (%) (Auto) 4.1H, Basophils (%) (Auto) 1.0 Height (Feet): 5 Height (Inches): 1.00 Weight (Pounds): 135 Objective PHYSICAL EXAMINATION: GENERAL: Alert, awake, and oriented. LUNGS: Decreased breath sounds bilaterally. HEART: S1 and S2 regular. ABDOMEN: Soft and nontender. EXTREMITIES: No cyanosis. No clubbing. NEURO: No changes. Assessment/Plan Assessment/Plan: (1) Multiple joint pain (2) Degenerative Joint disease Patient to be continued on Paxton D/w Dr. Mehta and he concurred. Jb Seals Oct 25, 2020 08:43
[2020-10-25] MEDS: cefTRIAXone 1 GM in D5W 55 ML IVPB SCH (09:12)
[2020-10-25] MEDS: Aspirin EC 81mg tab ORAL SCH (09:12)
[2020-10-25] MEDS: Acetaminophen 500mg (ES) tab ORAL SCH ×3 (09:13→17:28)
[2020-10-25] MEDS: Heparin 5000 units/ml inj SUBQ SCH ×2 (09:17→20:55)
--- NOTE | 2020-10-25 09:34 | General Progress Note ---
Subjective Constitutional: Reports: malaise, weakness Allergies: Coded Allergies: IBUPROFEN (Verified Allergy, Intermediate, rash, 01/24/13) prescription strength only MORPHINE (Verified Allergy, Intermediate, rash, 01/24/13) OXYCODONE (Unverified Allergy, Unknown, 03/09/15) pt cant remember Subjective awake poor po intake wt loss Objective Last 24 Hour Vital Signs Date Time Temp Pulse Resp B/P (MAP) Pulse Ox O2 Delivery O2 Flow Rate FiO2 10/25/20 09:15 89 111/60 10/25/20 08:00 97.9 89 18 111/60 (77) 99 10/25/20 07:40 93 10/25/20 06:29 98.1 10/25/20 04:00 98.3 77 18 124/73 (90) 98 10/25/20 03:14 89 10/25/20 00:34 98.1 10/25/20 00:00 98.7 79 20 109/72 (84) 97 10/25/20 00:00 85 10/24/20 21:00 Nasal Cannula 2.0 10/24/20 20:00 98.1 88 20 128/75 (92) 98 10/24/20 19:07 82 10/24/20 16:00 82 10/24/20 15:48 97.7 83 22 115/70 (85) 96 10/24/20 12:00 97.9 90 22 111/55 (73) 95 10/24/20 12:00 89 Intake and Output 10/24/20 10/25/20 19:00 07:00 Intake Total 75 ml 945 ml Output Total 450 ml 500 ml Balance -375 ml 445 ml Intake Oral 120 ml IV Total 75 ml 825 ml Output Urine Total 450 ml 500 ml Laboratory Tests 10/24/20 10:20: PTT Mixing Study [Pending], APTT Patient/Control Mix [Pending], Mix PTT Incubation Time [Pending], Mix PTT Normal/Saline 1:1 Immediate [Pending], Thrombin Time Normal Plasma [Pending], Iron Level 13L, Total Iron Binding Capacity 194L, Percent Iron Saturation 7L, Unsaturated Iron Binding 181, Ferritin 154, Lactate Dehydrogenase 370H 10/24/20 12:09: POC Whole Blood Glucose 117H 10/24/20 16:56: POC Whole Blood Glucose 99 10/24/20 20:38: POC Whole Blood Glucose [Pending] 10/25/20 05:30: Sodium Level 136, Potassium Level 3.3L, Chloride Level 99, Carbon Dioxide Level 32, Anion Gap 5, Blood Urea Nitrogen 12, Creatinine 0.5L, Estimat Glomerular Filtration Rate > 60, Glucose Level 82, Calcium Level 8.3L, Troponin I 0.000, Pro-B-Type Natriuretic Peptide 692H, Thyroid Stimulating Hormone (TSH) 0.178L, Free Thyroxine 1.38 10/25/20 08:00: White Blood Count 13.8H, Red Blood Count 2.67L, Hemoglobin 8.2L, Hematocrit 25.5L, Mean Corpuscular Volume 96, Mean Corpuscular Hemoglobin 30.7, Mean Co rpuscular Hemoglobin Concent 32.1, Red Cell Distribution Width 17.7H, Platelet Count 284, Mean Platelet Volume 6.7, Neutrophils (%) (Auto) 77.1H, Lymphocytes (%) (Auto) 11.5L, Monocytes (%) (Auto) 6.4, Eosinophils (%) (Auto) 4.1H, Basophils (%) (Auto) 1.0 Height (Feet): 5 Height (Inches): 1.00 Weight (Pounds): 135 General Appearance: alert EENT: PERRL/EOMI Neck: supple Cardiovascular: regular rhythm Respiratory/Chest: normal breath sounds Abdomen: non tender, soft Assessment/Plan Assessment/Plan: 1 ashley pneumonia r/o covid 2 weight loss 3 failure of thrive 4 intractable pain rt knee and lt shoulder 5 chf 6 dm 7 htn 9 djd admit to ap r/o covid cont iv abx pain meds pulmonary on consult pain management on the case dw with Luis Ambriz MD Oct 25, 2020 09:34
--- NOTE | 2020-10-25 10:00 | NUR ---
NURSE NOTES: Dr. Figueroa informed of K 3.3. Awaiting response.
[2020-10-25 12:00] VITALS: BP 120/50
[2020-10-25] MEDS: Azithromycin 500 MG in D5W 275 ML IV SCH (12:43)
--- NOTE | 2020-10-25 13:38 | Pulmonology Progress Note ---
Subjective Interval Events: None new Constitutional: Reports: no symptoms HEENT: Repors: no symptoms Respiratory: Reports: no symptoms Gastrointestinal/Abdominal: Reports: no symptoms Genitourinary: Reports: no symptoms Allergies: Coded Allergies: IBUPROFEN (Verified Allergy, Intermediate, rash, 01/24/13) prescription strength only MORPHINE (Verified Allergy, Intermediate, rash, 01/24/13) OXYCODONE (Unverified Allergy, Unknown, 03/09/15) pt cant remember Objective Last 24 Hour Vital Signs Date Time Temp Pulse Resp B/P (MAP) Pulse Ox O2 Delivery O2 Flow Rate FiO2 10/25/20 12:00 98.0 86 18 120/50 (73) 98 10/25/20 12:00 84 10/25/20 09:15 89 111/60 10/25/20 09:00 Nasal Cannula 2.0 10/25/20 08:00 97.9 89 18 111/60 (77) 99 10/25/20 07:40 93 10/25/20 06:29 98.1 10/25/20 04:00 98.3 77 18 124/73 (90) 98 10/25/20 03:14 89 10/25/20 00:34 98.1 10/25/20 00:00 98.7 79 20 109/72 (84) 97 10/25/20 00:00 85 10/24/20 21:00 Nasal Cannula 2.0 10/24/20 20:00 98.1 88 20 128/75 (92) 98 10/24/20 19:07 82 10/24/20 16:00 82 10/24/20 15:48 97.7 83 22 115/70 (85) 96 Intake and Output 10/24/20 10/25/20 19:00 07:00 Intake Total 75 ml 945 ml Output Total 450 ml 500 ml Balance -375 ml 445 ml Intake Oral 120 ml IV Total 75 ml 825 ml Output Urine Total 450 ml 500 ml General Appearance: no acute distress HEENT: normocephalic Respiratory: chest wall non-tender, lungs clear Cardiovascular: normal peripheral pulses Abdomen: normal bowel sounds Microbiology Date/Time Source Procedure Growth Status 10/22/20 20:30 Rectum VRE Culture - Final NO VANCOMYCIN RESISTANT ENTEROCOCCUS ... Complete 10/22/20 20:30 Rectum - Final NO CARBAPENEM-RESISTANT ENTEROBACTERI... Complete 10/22/20 20:30 Nasal Nares MRSA Culture - Final NO METHICILLIN RESISTANT STAPH AUREUS... Complete Laboratory Tests 10/24/20 16:56: POC Whole Blood Glucose 99 10/24/20 20:38: POC Whole Blood Glucose [Pending] 10/25/20 05:30: Sodium Level 136, Potassium Level 3.3L, Chloride Level 99, Carbon Dioxide Level 32, Anion Gap 5, Blood Urea Nitrogen 12, Creatinine 0.5L, Estimat Glomerular Filtration Rate > 60, Glucose Level 82, Calcium Level 8.3L, Troponin I 0.000, Pro-B-Type Natriuretic Peptide 692H, Thyroid Stimulating Hormone (TSH) 0.178L, Free Thyroxine 1.38 10/25/20 08:00: White Blood Count 13.8H, Red Blood Count 2.67L, Hemoglobin 8.2L, Hematocrit 25.5L, Mean Corpuscular Volume 96, Mean Corpuscular Hemoglobin 30.7, Mean C orpuscular Hemoglobin Concent 32.1, Red Cell Distribution Width 17.7H, Platelet Count 284, Mean Platelet Volume 6.7, Neutrophils (%) (Auto) 77.1H, Lymphocytes (%) (Auto) 11.5L, Monocytes (%) (Auto) 6.4, Eosinophils (%) (Auto) 4.1H, Basophils (%) (Auto) 1.0 Current Medications Medications (Trade) Dose Ordered Sig/Elen Route PRN Reason Start Time Stop Time Status Last Admin Dose Admin Acetaminophen (Tylenol) 500 mg Q6H PRN ORAL Mild Pain (Pain Scale 1-3) 10/23/20 10:15 11/22/20 10:14 Acetaminophen (Tylenol) 500 mg TID ORAL 10/23/20 13:00 11/22/20 12:59 10/25/20 12:57 Acetaminophen/ Hydrocodone Bitart ([place] 5/325) 1 tab Q4H PRN ORAL Moderate Pain (Pain Scale 4-6) 10/23/20 10:15 10/30/20 10:14 10/25/20 05:59 Amlodipine Besylate (Norvasc) 10 mg DAILY ORAL 10/24/20 09:00 11/23/20 08:59 10/25/20 09:15 Aspirin (Ecotrin) 81 mg DAILY ORAL 10/24/20 09:00 12/08/20 08:59 10/25/20 09:12 Azithromycin 500 mg/Dextrose 275 ml @ 275 mls/hr Q24HRS IV 10/23/20 12:00 10/29/20 12:59 10/25/20 12:43 Ceftriaxone Sodium 1 gm/ Dextrose 55 ml @ 110 mls/hr Q24H IVPB 10/23/20 10:15 10/30/20 10:14 10/25/20 09:12 Dextrose (Dextrose 50%) 25 ml Q30M PRN IV Hypoglycemia 10/23/20 10:15 01/21/21 10:14 Dextrose (Dextrose 50%) 50 ml Q30M PRN IV Hypoglycemia 10/23/20 10:15 01/21/21 10:14 Heparin Sodium (Porcine) (Heparin 5000 units/ml) 5,000 units EVERY 12 HOURS SUBQ 10/23/20 21:00 12/07/20 20:59 10/25/20 09:17 Insulin Aspart (NovoLOG) BEFORE MEALS AND HS SUBQ 10/23/20 11:30 01/21/21 11:29 10/24/20 06:56 Metformin HCl (Glucophage) 1,000 mg BIAC ORAL 10/23/20 16:30 11/22/20 16:29 10/24/20 06:55 Ondansetron HCl (Zofran) 4 mg Q6H PRN IVP Nausea & Vomiting 10/23/20 07:15 11/22/20 07:14 10/23/20 07:23 Sodium Chloride 1,000 ml @ 75 mls/hr [id number] IV 10/23/20 11:23 11/22/20 11:22 10/25/20 03:23 Assessment/Plan Assessment/Plan IMPRESSION: 1. Bilateral pneumonia. 2. Hypertension. DISCUSSION: Agree with fluids and broad-spectrum antibiotics. Await COVID-19 testing. Continue home medications including metformin and insulin sliding scale. I will follow carefully. Saturating 98% on 2L/min O2 Belgica Rodriguez Omar Syed MD Oct 25, 2020 13:38
--- NOTE | 2020-10-25 14:11 | Cardiac Electrophysiology PN ---
Assessment/Plan Assessment/Plan 1. Long run of 16 beats of nonsustained ventricular tachycardia. Ruled out for [place] Echocardiogram EF 65%. Ischemia eval after covid negative 2. Shortness of breath and lung infiltrate. Being ruled out for COVID. 3. Hypertension, on Norvasc 10 mg daily. 4. Diabetes, on metformin. 5. Pneumonia, on azithromycin and ceftriaxone. Subjective Subjective In isolation to R/O Covid. In SR Objective Last 24 Hour Vital Signs Date Time Temp Pulse Resp B/P (MAP) Pulse Ox O2 Delivery O2 Flow Rate FiO2 10/25/20 12:00 98.0 86 18 120/50 (73) 98 10/25/20 12:00 84 10/25/20 09:15 89 111/60 10/25/20 09:00 Nasal Cannula 2.0 10/25/20 08:00 97.9 89 18 111/60 (77) 99 10/25/20 07:40 93 10/25/20 06:29 98.1 10/25/20 04:00 98.3 77 18 124/73 (90) 98 10/25/20 03:14 89 10/25/20 00:34 98.1 10/25/20 00:00 98.7 79 20 109/72 (84) 97 10/25/20 00:00 85 10/24/20 21:00 Nasal Cannula 2.0 10/24/20 20:00 98.1 88 20 128/75 (92) 98 10/24/20 19:07 82 10/24/20 16:00 82 10/24/20 15:48 97.7 83 22 115/70 (85) 96 Intake and Output 10/24/20 10/25/20 19:00 07:00 Intake Total 75 ml 945 ml Output Total 450 ml 500 ml Balance -375 ml 445 ml Intake Oral 120 ml IV Total 75 ml 825 ml Output Urine Total 450 ml 500 ml Laboratory Tests Test 10/24/20 16:56 10/24/20 20:38 10/25/20 05:30 10/25/20 08:00 POC Whole Blood Glucose 99 MG/DL (74-106) Pending Sodium Level 136 MMOL/L (136-145) Potassium Level 3.3 MMOL/L (3.5-5.1) L Chloride Level 99 MMOL/L (98-107) Carbon Dioxide Level 32 MMOL/L (21-32) Anion Gap 5 mmol/L (5-15) Blood Urea Nitrogen 12 mg/dL (7-18) Creatinine 0.5 MG/DL (0.55-1.30) L Estimat Glomerular Filtration Rate > 60 mL/min (>60) Glucose Level 82 MG/DL (74-106) Calcium Level 8.3 MG/DL (8.5-10.1) L Troponin I 0.000 ng/mL (0.000-0.056) Pro-B-Type Natriuretic Peptide 692 pg/mL (0-125) H Thyroid Stimulating Hormone (TSH) 0.178 uiU/mL (0.358-3.740) Free Thyroxine 1.38 NG/DL (0.76-1.46) White Blood Count 13.8 K/UL (4.8-10.8) H Red Blood Count 2.67 M/UL (4.20-5.40) L Hemoglobin 8.2 G/DL (12.0-16.0) L Hematocrit 25.5 % (37.0-47.0) L Mean Corpuscular Volume 96 FL (80-99) Mean Corpuscular Hemoglobin 30.7 PG (27.0-31.0) Mean Corpuscular Hemoglobin Concent 32.1 G/DL (32.0-36.0) Red Cell Distribution Width 17.7 % (11.6-14.8) H Platelet Count 284 K/UL (150-450) Mean Platelet Volume 6.7 FL (6.5-10.1) Neutrophils (%) (Auto) 77.1 % (45.0-75.0) H Lymphocytes (%) (Auto) 11.5 % (20.0-45.0) L Monocytes (%) (Auto) 6.4 % (1.0-10.0) Eosinophils (%) (Auto) 4.1 % (0.0-3.0) H Basophils (%) (Auto) 1.0 % (0.0-2.0) Microbiology Date/Time Source Procedure Growth Status 10/22/20 20:30 Rectum VRE Culture - Final NO VANCOMYCIN RESISTANT ENTEROCOCCUS ... Complete 10/22/20 20:30 Rectum - Final NO CARBAPENEM-RESISTANT ENTEROBACTERI... Complete 10/22/20 20:30 Nasal Nares MRSA Culture - Final NO METHICILLIN RESISTANT STAPH AUREUS... Complete Objective HEAD AND NECK: no JVD. LUNGS: Coarse rhonchi. CARDIOVASCULAR: regular S1 and S2 with no gallop or murmur. ABDOMEN: Soft. EXTREMITIES: No pitting edema. Pacheco Fernández MD Oct 25, 2020 14:11
--- NOTE | 2020-10-25 14:21 | NUR ---
NURSE NOTES: Dr. Fields notified of CBC hbg, hct results. Awaiting response.
--- NOTE | 2020-10-25 15:15 | NUR ---
TRANSFER TO FLOOR: Patient transferred to [address] [place] [address], [address] Duong. Report given to Magali CORONADO. Belongings and medications given to Magali CORONADO. Family and or S/O informed of transfer.
--- NOTE | 2020-10-25 15:30 | NUR ---
NURSE NOTES Received patient from tele via bed, patient awake, nonverbal, no sign of distress, on PUI, for isolation, IVF patent and infusing well, purewick in placed, on fall and aspiraion precaution, 4 P's in progress call light w/n reach, will continue to monitor patient condition lily sung
[2020-10-25 16:30] VITALS: BP 104/57
--- NOTE | 2020-10-25 19:45 | NUR ---
NURSE HAND-OFF: Important Events on Shift:[PATIENT WAS DOWN GRADE FROM TELE, TO MED SURG] Patient Status: [ON TAMMY] Diet: [CCHO M SOFT] Pending Orders: [LAB] Pending Results/Labs:[NONE] Pending MD notification: K 3.3 AWATING FOR ORDER[] Latest Vital Signs: Temperature 98.1 , Pulse 76 , B/P 104 /57 , Respiratory Rate 18 , O2 SAT 98 , Nasal Cannula, O2 Flow Rate 2.0 . Vital Sign Comment: [STABLE] Latest Iniguez Fall Score: 60 Fall Risk: High Risk Safety Measures: Call light Within Reach, Bed Alarm Zone 1, Side Rails Side Rails x3, Bed position Low and Locked. Fall Precautions: Yellow Socks Patient Fall Education Report given to [IVONNE RUVALCABA ACCORDINGLY]. Addendum: 10/25/20 at 1952 by HARVINDER DENSON RN RN NURSE HAND-OFF: Important Events on Shift:[PATIENT WAS DOWN GRADE FROM TELE, ] Patient Status: [ON TAMMY] Diet: [CCHO M SOFT] Pending Orders: [LAB] Pending Results/Labs:[NONE] Pending MD notification: K 3.3 AWATING FOR ORDER[] Latest Vital Signs: Temperature 98.1 , Pulse 76 , B/P 104 /57 , Respiratory Rate 18 , O2 SAT 98 , Nasal Cannula, O2 Flow Rate 2.0 . Vital Sign Comment: [STABLE] Latest Iniguez Fall Score: 60 Fall Risk: High Risk Safety Measures: Call light Within Reach, Bed Alarm Zone 1, Side Rails Side Rails x3, Bed position Low and Locked. Fall Precautions: Yellow Socks Patient Fall Education Report given to [IVONNE RUVALCABA ACCORDINGLY]
--- NOTE | 2020-10-25 19:59 | NUR ---
NURSE NOTES: Received patient in bed, alert, oriented x1, patient is a total care, bed bound, with poor appetite, on oxygen 2 liters, patient is incontinent of bowel and bladder. Call light is within reach, bed is lowered, locked, alarm is on, will continue to monitor for comfort and safety.
[2020-10-25 20:00] VITALS: BP 123/63
--- NOTE | 2020-10-25 21:09 | CDS Physician Query ---
PLEASE COMPLETE THE DOCUMENT BEFORE SIGNING Clarification is required for compliance, coding accuracy, and to reflect severity of illness for this patient Dear Dr. Tom Figueroa M.D. Date 10/25/2020 CDI/CDS; Eilezer Bettencourt 80-year-old female who as noted has failure to thrive, has been not getting up and lying down on the bed for the last few days, and has been not eating. The patient is also feeling generalized weakness. [H&P Tom Figueroa M.D 10/22/20 ] ASSESSMENT AND PLAN: 1. Pneumonia. 2. Failure to thrive. 3. Dehydration. 4. Intractable pain. 5. Anxiety. 6. Degenerative arthritis. Clinical Finding Show: Vitals (10/22): T98.1F, Pulse 98, RR 24. LAB (10/22) : Hemat; WBC 12.2, Neut%64.5 Chem: Gluc 111, Lactic acid 1.6, Urines(10/22): Ur.Bacteria "Moderate", Ur. Leuk Rae 1+ Medication: AZITHROMYCIN 500 IV, Ceftriaxone IV, Piperacillin Sod IV According to the clinical indications above, please indicate below the condition PHYSICIAN RESPONSE: [ ] Sepsis [ ] SIRS [ ] SIRS with organ dysfunction [ ] Septic Shock [ ] Not applicable [ ] Other: Was SEPSIS present on admission? [] Yes [] No [] Clinically undeterminable Please also document in your Progress Notes and/or Discharge Summary and indicate if the condition was present on admission. MTDD
--- NOTE | 2020-10-25 21:16 | CDS Physician Query ---
Clarification is required for compliance, coding accuracy, and to reflect severity of illness for this patient Dear Dr. Tom Figueroa M.D. Date 10/25/2020 CDI/CDS; Eliezer Bettencourt 80-year-old female who as noted has failure to thrive, has been not getting up and lying down on the bed for the last few days, and has been not eating. The patient is also feeling generalized weakness. [H&P Tom Figueroa M.D 10/22/20 ] ASSESSMENT AND PLAN: 1. Pneumonia. 2. Failure to thrive. 3. Dehydration. 4. Intractable pain. 5. Anxiety. 6. Degenerative arthritis. Clinical Finding Show: BMI 25.5 kg/m2 Vitals (10/22): T98.1F, Pulse 98, RR 24, LAB (10/22) : Hemat; WBC 12.2, Neut%64.5 Chem: Gluc 111, Lactic acid 1.6, Alb 2.9, Calcium lev 9.4 Urines(10/22): Ur.Bacteria "Moderate", Ur. Leuk Rae 1+ Medication: AZITHROMYCIN 500 IV, Ceftriaxone IV, Piperacillin Sod IV Please select the most appropriate option: [] Protein/Calorie Malnutrition [] Mild [] Moderate [] Severe [] Hypoalbuminemia [] Other [] Unable to determine [] Not Applicable Present on Admission: [] Yes [] No [] Clinically Undetermined Physician signature Date Please also document in your Progress Notes and/or Discharge Summary and indicate if the condition was present on admission. MTDD
[2020-10-26] VITALS: BP 124/64
[2020-10-26] MEDS: HYDROcodone/Acetamin 5/325 tab ORAL PRN (04:48)
--- NOTE | 2020-10-26 05:07 | NUR ---
RAIL CAR MECHANIC Note: RAIL CAR MECHANIC was called at 05:03 by 4E, and notified MD Fernández. Pt transferred to tele without incident. See RAIL CAR MECHANIC documentation form for full report.
[2020-10-26] MEDS: Nitroglycerin Subl 0.4mg tab SL PRN ×3 (05:10→05:25)
[2020-10-26] MEDS ORDERED: Nitroglycerin Subl 0.4mg tab SL ONE (05:11)
--- NOTE | 2020-10-26 06:15 | NUR ---
DEPARTMENT OF MATHEMATICS CHAIR Note: DEPARTMENT OF MATHEMATICS CHAIR was called at 0500 by ZENOBIA Kim RN and primary RN Janette Noble, and notified MD Figueroa and Dr. Walker. Pt transferred to telemetry floor at 0610. See DEPARTMENT OF MATHEMATICS CHAIR documentation form for full report. DEPARTMENT OF MATHEMATICS CHAIR called at 0500, c/o chest pain, [place] given as ordered. Patient has oxygen sat low 80's 0510 patient is on non rebreather mask 0510 1st dose of nitro is given by CEMENT TILE MAKER 0515 VS : 129/76HR 122 0516: second dose of nitro is given by CEMENT TILE MAKER 0525 ECG is performed, Sinus Tachy with PVC's VS: 118/25,122,99%
--- NOTE | 2020-10-26 06:26 | NUR ---
NURSE NOTES: FARM HAND was called at 0500, patient was complaining of chest pain, SOB, oxygen saturation low 80's. Please refer to FARM HAND note for details. Patient was transferred to telemetry floor, report is given to Von CORONADO.
[2020-10-26] MEDS: metFORMIN 500mg tab ORAL SCH ×2 (06:30→15:59)
[2020-10-26] MEDS: NovoLOG Insulin Flexpen SUBQ SCH ×4 (06:30→21:00)
--- NOTE | 2020-10-26 06:30 | NUR ---
NURSE NOTES: Received patient from IVONNE Kang S/P SOCIAL SERVICES TECHNICIAN from . Patient under the care of Dr. Figueroa for acute coronary syndrome, PNA, and failure to thrive. Patient is asleep in comfortable position. Tolerating O2 settings well, no visible sign of distress noted. Will continue to monitor.
--- NOTE | 2020-10-26 06:52 | Hematology/Onc Progress Note ---
Assessment/Plan Assessment/Plan Assessment and Recs # Coagulopathy likely due to underlying infection --> inr elevated, obtain mixing study for ptt/pt --> treat underlying infection -> vitamin k as needed # Anemia of chronic disease -> hgb 11-->8.4 --> likely hemoconcentrated, on ivf --> as per gi care # Leukocytosis with Jesus pneumonia r/o covid --> abx per pulm --> r/o covid19 --> wbc 14 # Weight loss --> age appropriate cancer screening # Failure of thrive -> pt/ot -> daily weights # Intractable pain rt knee and lt shoulder # chf # dm # htn # djd Appreciate consultation and dw RN Subjective Constitutional: Denies: no symptoms, chills, fever, malaise, weakness, other HEENT: Denies: no symptoms, eye pain, blurred vision, tearing, double vision, ear pain, ear discharge, nose pain, nose congestion, throat pain, throat swelling, mouth pain, mouth swelling, other Cardiovascular: Denies: no symptoms, chest pain, edema, irregular heart rate, lightheadedness, palpitations, syncope, other Genitourinary: Denies: no symptoms, burning, discharge, frequency, flank pain, hematuria, incontinence, pain, urgency, other Neurologic/Psychiatric: Denies: no symptoms, anxiety, depressed, emotional problems, headache, numbness, paresthesia, pre-existing deficit, seizure, tingling, tremors, weakness, other Endocrine: Denies: no symptoms, excessive sweating, flushing, intolerance to cold, intolerance to heat, increased hunger, increased thirst, increased urine, unexplained weight gain, unexplained weight loss, other Allergies: Coded Allergies: IBUPROFEN (Verified Allergy, Intermediate, rash, 01/24/13) prescription strength only MORPHINE (Verified Allergy, Intermediate, rash, 01/24/13) OXYCODONE (Unverified Allergy, Unknown, 03/09/15) pt cant remember Subjective 10/25 stephens intact, has been refusing care, no bleeding, stephens intact 10/26 labs still pending, from yesterday, hgb signif lower, no major events Objective Objective Current Medications Medications (Trade) Dose Ordered Sig/Elen Route PRN Reason Start Time Stop Time Status Last Admin Dose Admin Acetaminophen (Tylenol) 500 mg Q6H PRN ORAL Mild Pain (Pain Scale 1-3) 10/23/20 10:15 11/22/20 10:14 Acetaminophen (Tylenol) 500 mg TID ORAL 10/23/20 13:00 11/22/20 12:59 10/25/20 17:28 Acetaminophen/ Hydrocodone Bitart ([place] 5/325) 1 tab Q4H PRN ORAL Moderate Pain (Pain Scale 4-6) 10/23/20 10:15 10/30/20 10:14 10/26/20 04:48 Amlodipine Besylate (Norvasc) 10 mg DAILY ORAL 10/24/20 09:00 11/23/20 08:59 10/25/20 09:15 Aspirin (Ecotrin) 81 mg DAILY ORAL 10/24/20 09:00 12/08/20 08:59 10/25/20 09:12 Azithromycin 500 mg/Dextrose 275 ml @ 275 mls/hr Q24HRS IV 10/23/20 12:00 10/29/20 12:59 10/25/20 12:43 Ceftriaxone Sodium 1 gm/ Dextrose 55 ml @ 110 mls/hr Q24H IVPB 10/23/20 10:15 10/30/20 10:14 10/25/20 09:12 Dextrose (Dextrose 50%) 25 ml Q30M PRN IV Hypoglycemia 10/23/20 10:15 01/21/21 10:14 Dextrose (Dextrose 50%) 50 ml Q30M PRN IV Hypoglycemia 10/23/20 10:15 01/21/21 10:14 Heparin Sodium (Porcine) (Heparin 5000 units/ml) 5,000 units EVERY 12 HOURS SUBQ 10/23/20 21:00 12/07/20 20:59 10/25/20 20:55 Insulin Aspart (NovoLOG) BEFORE MEALS AND HS SUBQ 10/23/20 11:30 01/21/21 11:29 10/24/20 06:56 Metformin HCl (Glucophage) 1,000 mg BIAC ORAL 10/23/20 16:30 11/22/20 16:29 10/25/20 17:31 Nitroglycerin (Ntg) 0.4 mg Q5M PRN SL Prn Chest Pain 10/26/20 05:15 11/25/20 05:14 10/26/20 05:25 Ondansetron HCl (Zofran) 4 mg Q6H PRN IVP Nausea & Vomiting 10/23/20 07:15 11/22/20 07:14 10/23/20 07:23 Sodium Chloride 1,000 ml @ 75 mls/hr [id number] IV 10/23/20 11:23 11/22/20 11:22 10/26/20 04:48 Last 24 Hour Vital Signs Date Time Temp Pulse Resp B/P (MAP) Pulse Ox O2 Delivery O2 Flow Rate FiO2 10/26/20 05:25 118/65 10/26/20 05:16 129/76 10/26/20 05:10 149/71 10/26/20 00:00 98.2 89 22 124/64 (84) 94 89 10/25/20 21:22 Nasal Cannula 2.0 10/25/20 20:00 97.9 89 20 123/63 (83) 94 89 10/25/20 16:30 98.1 76 18 104/57 (73) 98 10/25/20 15:40 Nasal Cannula 2.0 10/25/20 12:00 98.0 86 18 120/50 (73) 98 10/25/20 12:00 84 10/25/20 09:15 89 111/60 10/25/20 09:00 Nasal Cannula 2.0 10/25/20 08:00 97.9 89 18 111/60 (77) 99 10/25/20 07:40 93 10/25/20 06:29 98.1 10/25/20 04:00 98.3 77 18 124/73 (90) 98 10/25/20 03:14 89 10/25/20 00:34 98.1 10/25/20 00:00 98.7 79 20 109/72 (84) 97 10/25/20 00:00 85 10/24/20 21:00 Nasal Cannula 2.0 10/24/20 20:00 98.1 88 20 128/75 (92) 98 10/24/20 19:07 82 10/24/20 16:00 82 10/24/20 15:48 97.7 83 22 115/70 (85) 96 10/24/20 12:00 97.9 90 22 111/55 (73) 95 10/24/20 12:00 89 10/24/20 09:00 Nasal Cannula 2.0 10/24/20 08:53 92 120/67 10/24/20 08:00 89 10/24/20 08:00 98.0 92 22 120/67 (84) 96 Intake and Output 10/25/20 10/26/20 19:00 07:00 Intake Total 150 ml 260 ml Balance 150 ml 260 ml IV Total 150 ml Other 260 ml # Voids 2 2 Labs Test 10/23/20 12:21 10/23/20 22:17 10/24/20 06:42 10/24/20 10:20 POC Whole Blood Glucose 119 MG/DL (74-106) 89 MG/DL (74-106) Iron Level 13 ug/dL (50-175) Total Iron Binding Capacity 194 ug/dL (250-450) Percent Iron Saturation 7 % (15-50) Unsaturated Iron Binding 181 ug/dL (112-346) Ferritin 154 NG/ML (8-388) Lactate Dehydrogenase 370 U/L (81-234) Test 10/24/20 12:09 10/24/20 16:56 10/24/20 20:38 10/25/20 05:30 POC Whole Blood Glucose 117 MG/DL (74-106) 99 MG/DL (74-106) Sodium Level 136 MMOL/L (136-145) Potassium Level 3.3 MMOL/L (3.5-5.1) Chloride Level 99 MMOL/L (98-107) Carbon Dioxide Level 32 MMOL/L (21-32) Anion Gap 5 mmol/L (5-15) Blood Urea Nitrogen 12 mg/dL (7-18) Creatinine 0.5 MG/DL (0.55-1.30) Estimat Glomerular Filtration Rate > 60 mL/min (>60) Glucose Level 82 MG/DL (74-106) Calcium Level 8.3 MG/DL (8.5-10.1) Troponin I 0.000 ng/mL (0.000-0.056) Pro-B-Type Natriuretic Peptide 692 pg/mL (0-125) Thyroid Stimulating Hormone (TSH) 0.178 uiU/mL (0.358-3.740) Free Thyroxine 1.38 NG/DL (0.76-1.46) Test 10/25/20 08:00 10/25/20 17:05 12/1/20 05:07 10/26/20 05:35 White Blood Count 13.8 K/UL (4.8-10.8) Red Blood Count 2.67 M/UL (4.20-5.40) Hemoglobin 8.2 G/DL (12.0-16.0) Hematocrit 25.5 % (37.0-47.0) Mean Corpuscular Volume 96 FL (80-99) Mean Corpuscular Hemoglobin 30.7 PG (27.0-31.0) Mean Corpuscular Hemoglobin Concent 32.1 G/DL (32.0-36.0) Red Cell Distribution Width 17.7 % (11.6-14.8) Platelet Count 284 K/UL (150-450) Mean Platelet Volume 6.7 FL (6.5-10.1) Neutrophils (%) (Auto) 77.1 % (45.0-75.0) Lymphocytes (%) (Auto) 11.5 % (20.0-45.0) Monocytes (%) (Auto) 6.4 % (1.0-10.0) Eosinophils (%) (Auto) 4.1 % (0.0-3.0) Basophils (%) (Auto) 1.0 % (0.0-2.0) POC Whole Blood Glucose 128 MG/DL (74-106) Arterial Blood pH 7.369 (7.350-7.450) Arterial Blood Partial Pressure CO2 45.3 mmHg (35.0-45.0) Arterial Blood Partial Pressure O2 96.2 mmHg (75.0-100.0) Arterial Blood HCO3 25.5 mmol/L (22.0-26.0) Arterial Blood Oxygen Saturation 96.4 % (95-100) Arterial Blood Base Excess 0.1 (-2-2) Minh Test Positive Height (Feet): 5 Height (Inches): 1.00 Weight (Pounds): 135 Objective Physical Exam Vitals: noted General Appearance: no apparent distres Heent: bilateral eye normal inspection, bilateral eye PERRL Neck: full range of motion, supple/symm/no masses Respiratory: chest non-tender, lungs clear, normal breath sounds, speaking full sentences Cardiovascular: regular rate, rhythm, no edema Gastrointestinal: normal bowel sounds, non tender Rectal: deferred Genitourinary: normal inspection, no CVA tenderness Neurologic: alert, oriented x3 Lymphatic: no adenopathy Arturo Fields MD Oct 26, 2020 06:52
--- NOTE | 2020-10-26 07:30 | NUR ---
NURSE NOTES: Received orders from Dr Humphrey stat ECG, echo and ABG, orders are entered in the system. ZENOBIA Longoria was made aware.
[2020-10-26 08:00] VITALS: BP 117/70
--- NOTE | 2020-10-26 08:10 | NUR ---
NURSE HAND-OFF REPORT: Important Events on Shift:DISABILITY BENEFITS SPECIALIST from 4E. Transferred to unit. Patient Status: Stable Diet: CCHO mech soft Pending Orders: ABG, 2D echo, EKG Pending Results/Labs: Pending MD notification: Latest Vital Signs: Temperature 98.2 , Pulse 89 , B/P 118 /65 , Respiratory Rate 22 , O2 SAT 94 , Nasal Cannula, O2 Flow Rate 2.0 . Vital Sign Comment: EKG Rhythm: Sinus Rhythm Rhythm change?: N Notified?: N -Dr. Henry CANTRELL Response: New consult With Trish Latest Iniguez Fall Score: 60 Fall Risk: High Risk Safety Measures: Call light Within Reach, Bed Alarm Zone 1, Side Rails Side Rails x3, Bed position Low and Locked. Fall Precautions: Yellow Socks Patient Fall Education Report given to IVONNE Gregory.
--- NOTE | 2020-10-26 08:38 | NUR ---
NURSE NOTES: Pt received from Dyllan Arevalo RN. Pt in bed non rebreather at 15L running, pt tachypneic. Stat EKG done and results relayed to Dr. Fernández. Contacted Daughter to get consent for stat KATHERIN. Daughter had questions beyond nursing scope, offered Dr. Fernández phone number and emphasized that this is a STAT order and the Would like to do the procedure promptly. Per daughter, "I need to make a call first" . Pt has critical lab value for pCO2 this morning, called and left emergency VM to Dr. Betancur.
--- NOTE | 2020-10-26 09:09 | General Progress Note ---
Subjective Date patient seen: Oct 26, 2020 Time patient seen: 09:07 - am Allergies: Coded Allergies: IBUPROFEN (Verified Allergy, Intermediate, rash, 01/24/13) prescription strength only MORPHINE (Verified Allergy, Intermediate, rash, 01/24/13) OXYCODONE (Unverified Allergy, Unknown, 03/09/15) pt cant remember Subjective HISTORY OF PRESENT ILLNESS: This is a 80-year-old female who is being been seen on the telemetry floor of [facility]. Patient resting in bed and reports no pain at this time. One dose of [place] given in the last 24hrs, no signs of pain or distress noted. REVIEW OF SYSTEMS: Denies rash, fever, chills, sweating, dizziness, drowsiness, sore throat, or change in weight. No nausea, vomiting, diarrhea, or blood in the stool. No dysuria. Objective Last 24 Hour Vital Signs Date Time Temp Pulse Resp B/P (MAP) Pulse Ox O2 Delivery O2 Flow Rate FiO2 10/26/20 05:25 118/65 10/26/20 05:16 129/76 10/26/20 05:10 149/71 10/26/20 00:00 98.2 89 22 124/64 (84) 94 89 10/25/20 21:22 Nasal Cannula 2.0 10/25/20 20:00 97.9 89 20 123/63 (83) 94 89 10/25/20 16:30 98.1 76 18 104/57 (73) 98 10/25/20 15:40 Nasal Cannula 2.0 10/25/20 12:00 98.0 86 18 120/50 (73) 98 10/25/20 12:00 84 10/25/20 09:15 89 111/60 Intake and Output 10/25/20 10/26/20 19:00 07:00 Intake Total 150 ml 260 ml Balance 150 ml 260 ml IV Total 150 ml Other 260 ml # Voids 2 2 Laboratory Tests 10/25/20 17:05: POC Whole Blood Glucose [Pending] 10/26/20 05:07: POC Whole Blood Glucose 128H 10/26/20 05:35: Arterial Blood pH 7.369, Arterial Blood Partial Pressure CO2 45.3H, Arterial Blood Partial Pressure O2 96.2, Arterial Blood HCO3 25.5, Arterial Blood Oxygen Saturation 96.4, Arterial Blood Base Excess 0.1, Minh Test Positive 10/26/20 07:35: Arterial Blood pH 7.336L, Arterial Blood Partial Pressure CO2 57.3*H, Arterial Blood Partial Pressure O2 94.1, Arterial Blood HCO3 29.9H, Arterial Blood Oxygen Saturation 96.4, Arterial Blood Base Excess 3.3H, Minh Test Positive Height (Feet): 5 Height (Inches): 1.00 Weight (Pounds): 135 Objective PHYSICAL EXAMINATION: GENERAL: Alert, awake, and oriented. LUNGS: Decreased breath sounds bilaterally. HEART: S1 and S2 regular. ABDOMEN: Soft and nontender. EXTREMITIES: No cyanosis. No clubbing. NEURO: No changes. Assessment/Plan Assessment/Plan: (1) Multiple joint pain (2) Degenerative Joint disease Patient to be continued on Columbia D/w Dr. Mehta and he concurred. Jb Seals Oct 26, 2020 09:09
[2020-10-26] MEDS: Aspirin EC 81mg tab ORAL SCH (09:40)
[2020-10-26] MEDS: Acetaminophen 500mg (ES) tab ORAL SCH ×4 (09:41→18:00)
[2020-10-26] MEDS: cefTRIAXone 1 GM in D5W 55 ML IVPB SCH (09:42)
[2020-10-26] MEDS: Heparin 5000 units/ml inj SUBQ SCH (09:43)
--- NOTE | 2020-10-26 10:00 | NUR ---
NURSE NOTES: Per Sharif from cardiology, in order to do KATHERIN Dr. Adams would need a Covid swab. However Per Dr. Betancur, she can not have the swab. Additionally per Dr. Betancur pt not stable enough for KATHERIN. Will notify Dr. Fernández.
--- NOTE | 2020-10-26 10:42 | General Progress Note ---
Subjective Allergies: Coded Allergies: IBUPROFEN (Verified Allergy, Intermediate, rash, 01/24/13) prescription strength only MORPHINE (Verified Allergy, Intermediate, rash, 01/24/13) OXYCODONE (Unverified Allergy, Unknown, 03/09/15) pt cant remember Subjective not doing well sob on high o2 opens her eyes on stimulation tachycardia Objective Last 24 Hour Vital Signs Date Time Temp Pulse Resp B/P (MAP) Pulse Ox O2 Delivery O2 Flow Rate FiO2 10/26/20 09:41 104 117/70 10/26/20 08:00 98.3 104 22 117/70 (86) 97 104 10/26/20 07:50 102 10/26/20 05:25 118/65 10/26/20 05:16 129/76 10/26/20 05:10 149/71 10/26/20 00:00 98.2 89 22 124/64 (84) 94 89 10/25/20 21:22 Nasal Cannula 2.0 10/25/20 20:00 97.9 89 20 123/63 (83) 94 89 10/25/20 16:30 98.1 76 18 104/57 (73) 98 10/25/20 15:40 Nasal Cannula 2.0 10/25/20 12:00 98.0 86 18 120/50 (73) 98 10/25/20 12:00 84 Intake and Output 10/25/20 10/26/20 19:00 07:00 Intake Total 150 ml 260 ml Balance 150 ml 260 ml IV Total 150 ml Other 260 ml # Voids 2 2 Laboratory Tests 10/25/20 17:05: POC Whole Blood Glucose [Pending] 10/26/20 05:07: POC Whole Blood Glucose 128H 10/26/20 05:35: Arterial Blood pH 7.369, Arterial Blood Partial Pressure CO2 45.3H, Arterial Blood Partial Pressure O2 96.2, Arterial Blood HCO3 25.5, Arterial Blood Oxygen Saturation 96.4, Arterial Blood Base Excess 0.1, Minh Test Positive 10/26/20 07:35: Arterial Blood pH 7.336L, Arterial Blood Partial Pressure CO2 57.3*H, Arterial Blood Partial Pressure O2 94.1, Arterial Blood HCO3 29.9H, Arterial Blood Oxygen Saturation 96.4, Arterial Blood Base Excess 3.3H, Minh Test Positive Height (Feet): 5 Height (Inches): 1.00 Weight (Pounds): 135 General Appearance: moderate distress Neck: supple Cardiovascular: tachycardia Respiratory/Chest: rhonchi - bilaterally Abdomen: non tender, soft Extremities: non-tender Assessment/Plan Assessment/Plan: 1 ashley pneumonia r/o covid getting worse ,requreing hihg o2 2 weight loss 3 failure of thrive 4 intractable pain rt knee and lt shoulder 5 chf 6 dm 7 htn 9 djd 10 mild resp acidosis admit to ap r/o covid add steroids darrius matias cont iv abx pain meds cardiology dr cat on the consult pulmonary on consult pain management on the case dw with dtr rpt cxr Luis Figueroa MD Oct 26, 2020 10:42
[2020-10-26 11:00] LABS: BASOPHILS % (AUTO) 2.1 % (0.0-2.0); EOSINOPHILS % (AUTO) 0.1 % (0.0-3.0); HEMATOCRIT 27.6 % (37.0-47.0); HEMOGLOBIN 8.7 G/DL (12.0-16.0); LYMPHOCYTES % (AUTO) 7.7 % (20.0-45.0); MEAN CORPUSCULAR VOLUME 97 FL (80-99); MONOCYTES % (AUTO) 6.1 % (1.0-10.0); PLATELET COUNT 306 K/UL (150-450); RED BLOOD COUNT 2.85 M/UL (4.20-5.40); RED CELL DISTRIBUTION WIDTH 16.8 % (11.6-14.8); WHITE BLOOD COUNT 16.1 K/UL (4.8-10.8)
[2020-10-26 11:19] LABS: ANION GAP 6 mmol/L (5-15); BLOOD UREA NITROGEN 9 mg/dL (7-18); CALCIUM 8.3 MG/DL (8.5-10.1); CARBON DIOXIDE 33 MMOL/L (21-32); CHLORIDE 99 MMOL/L (98-107); CREATININE 0.6 MG/DL (0.55-1.30); POTASSIUM 3.1 MMOL/L (3.5-5.1); SODIUM 137 MMOL/L (136-145)
[2020-10-26] MEDS: Azithromycin 500 MG in D5W 275 ML IV SCH (11:24)
--- NOTE | 2020-10-26 11:40 | Cardiac Electrophysiology PN ---
Assessment/Plan Assessment/Plan 1. Long run of 16 beats of nonsustained ventricular tachycardia. Ruled out for IA Echocardiogram EF 65%. Stress test vs Cardiac cath after covid is negative 2. Shortness of breath and lung infiltrate. Being ruled out for COVID. Stat ABG and CXR and FU with Dr Betancur 3. Hypertension, on Norvasc 10 mg daily. 4. Diabetes, on metformin. 5. Pneumonia, on azithromycin and ceftriaxone. 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 Was transferred [facility] after rapid response for desaturation. In SR Objective Last 24 Hour Vital Signs Date Time Temp Pulse Resp B/P (MAP) Pulse Ox O2 Delivery O2 Flow Rate FiO2 10/26/20 10:11 98.3 10/26/20 09:41 104 117/70 10/26/20 08:00 98.3 104 22 117/70 (86) 97 104 10/26/20 07:50 102 10/26/20 05:25 118/65 10/26/20 05:16 129/76 10/26/20 05:10 149/71 10/26/20 00:00 98.2 89 22 124/64 (84) 94 89 10/25/20 21:22 Nasal Cannula 2.0 10/25/20 20:00 97.9 89 20 123/63 (83) 94 89 10/25/20 16:30 98.1 76 18 104/57 (73) 98 10/25/20 15:40 Nasal Cannula 2.0 10/25/20 12:00 98.0 86 18 120/50 (73) 98 10/25/20 12:00 84 Intake and Output 10/25/20 10/26/20 19:00 07:00 Intake Total 150 ml 260 ml Balance 150 ml 260 ml IV Total 150 ml Other 260 ml # Voids 2 2 Laboratory Tests Test 10/25/20 17:05 10/26/20 05:07 10/26/20 05:35 10/26/20 07:35 POC Whole Blood Glucose Pending 128 MG/DL (74-106) H Arterial Blood pH 7.369 (7.350-7.450) 7.336 (7.350-7.450) Arterial Blood Partial Pressure CO2 45.3 mmHg (35.0-45.0) H 57.3 mmHg (35.0-45.0) *H Arterial Blood Partial Pressure O2 96.2 mmHg (75.0-100.0) 94.1 mmHg (75.0-100.0) Arterial Blood HCO3 25.5 mmol/L (22.0-26.0) 29.9 mmol/L (22.0-26.0) H Arterial Blood Oxygen Saturation 96.4 % (95-100) 96.4 % (95-100) Arterial Blood Base Excess 0.1 (-2-2) 3.3 (-2-2) H Minh Test Positive Positive Test 10/26/20 10:45 White Blood Count 16.1 K/UL (4.8-10.8) H Red Blood Count 2.85 M/UL (4.20-5.40) L Hemoglobin 8.7 G/DL (12.0-16.0) L Hematocrit 27.6 % (37.0-47.0) L Mean Corpuscular Volume 97 FL (80-99) Mean Corpuscular Hemoglobin 30.6 PG (27.0-31.0) Mean Corpuscular Hemoglobin Concent 31.5 G/DL (32.0-36.0) L Red Cell Distribution Width 16.8 % (11.6-14.8) H Platelet Count 306 K/UL (150-450) Mean Platelet Volume 7.3 FL (6.5-10.1) Neutrophils (%) (Auto) 84.0 % (45.0-75.0) H Lymphocytes (%) (Auto) 7.7 % (20.0-45.0) L Monocytes (%) (Auto) 6.1 % (1.0-10.0) Eosinophils (%) (Auto) 0.1 % (0.0-3.0) Basophils (%) (Auto) 2.1 % (0.0-2.0) H Sodium Level 137 MMOL/L (136-145) Potassium Level 3.1 MMOL/L (3.5-5.1) L Chloride Level 99 MMOL/L (98-107) Carbon Dioxide Level 33 MMOL/L (21-32) H Anion Gap 6 mmol/L (5-15) Blood Urea Nitrogen 9 mg/dL (7-18) Creatinine 0.6 MG/DL (0.55-1.30) Estimat Glomerular Filtration Rate > 60 mL/min (>60) Glucose Level 127 MG/DL (74-106) H Calcium Level 8.3 MG/DL (8.5-10.1) L Total Protein (PEP) Pending Albumin (PEP) Pending Globulin (PEP) Pending Albumin/Globulin Ratio Pending [id number] Pending [id number] Pending Beta Globulins Pending Beta Gamma Globulin Pending PEP Abnormal Protein Bands Pending Protein Electrophoresis Interpret Pending Objective HEAD AND NECK: no JVD. LUNGS: Coarse rhonchi. CARDIOVASCULAR: regular S1 and S2 with no gallop or murmur. ABDOMEN: Soft. EXTREMITIES: No pitting edema. Pacheco Fernández MD Oct 26, 2020 11:40
[2020-10-26 12:00] VITALS: BP 117/61
--- NOTE | 2020-10-26 12:27 | NUR ---
NURSE NOTES: received report from microbiology pt is negative COVLUIS EDUARDO, Dr Victoria was notified and new order received, and keep pt PUI.
--- NOTE | 2020-10-26 13:29 | Consultation ---
DATE OF CONSULTATION: 10/26/2020 INFECTIOUS DISEASES CONSULTATION CONSULTING PHYSICIAN: Elin Victoria MD. REFERRING PHYSICIAN: Tom Figueroa MD. REASON FOR CONSULTATION: Pneumonia. HISTORY OF PRESENT ILLNESS: This is a 80-year-old lady with history of diabetes, hypertension, arthritis who comes in with weakness. She was found to have a pneumonia. An Infectious Diseases consultation has been obtained for antibiotics. PAST MEDICAL HISTORY: 1. History of diabetes. 2. Hypertension. 3. DJD. SOCIAL HISTORY: Unknown. FAMILY HISTORY: Unknown. REVIEW OF SYSTEMS: Unable to obtain currently. MEDICATIONS: As an inpatient, she has been started on dexamethasone, nitroglycerin, aspirin amlodipine, metformin, Tylenol, azithromycin, insulin, [place], ceftriaxone, Zofran, Tylenol. ALLERGIES: 1. Ibuprofen. 2. Morphine. 3. Oxycodone. PHYSICAL EXAMINATION: VITAL SIGNS: Temperature 98.3, T-max of 98.7, pulse of 104, respiratory rate 22, blood pressure 117/70, O2 saturation of 97%. Examination deferred due to possibility of COVID-19. LABORATORY AND DIAGNOSTIC DATA: White count 16.1, hemoglobin 8.7, hematocrit 27.6, MCV 97, platelet count of 306, neutrophils of 84%. Sodium 137, potassium 3.1, chloride 99, bicarb 33, BUN 9, creatinine 0.6, glucose 127, calcium 8.3. Total bilirubin 0.4, AST 34, ALT 14, alkaline phosphatase 95. Troponin 0.007. Total protein 9.8, albumin 2.9. UA is showing 2 to 4 white cells. Blood cultures are negative. Nasal swab was negative for MRSA. Rectal swab was negative for VRE. Chest x-ray showing bilateral infiltrates versus edema. ASSESSMENT: This is a 80-year-old lady with history of diabetes and hypertension who comes in with weakness and is found to have. 1. Pneumonia, would like to rule out COVID-19 pneumonia. 2. Diabetes. 3. . 4. Congestive heart failure. PLAN: 1. Continue ceftriaxone and azithromycin. 2. Continue dexamethasone that been started. 3. We will order COVID-19 test. 4. Continue isolation. 5. We will follow up the patient clinically. I would like to thank, Dr. Figueroa for this consultation. Elin Victoria M.D. DR: Samy JOB#: [id number] CC: Tom Figueroa M.D.; Fax#: [phone]
[2020-10-26 14:38] LABS: HEMATOCRIT 30.9 % (37.0-47.0); HEMOGLOBIN 9.6 G/DL (12.0-16.0); MEAN CORPUSCULAR VOLUME 98 FL (80-99); PLATELET COUNT 320 K/UL (150-450); RED BLOOD COUNT 3.17 M/UL (4.20-5.40); RED CELL DISTRIBUTION WIDTH 16.6 % (11.6-14.8); WHITE BLOOD COUNT 16.1 K/UL (4.8-10.8)
--- NOTE | 2020-10-26 14:50 | Cardiology Report ---
APPROVED REPORT EKG Measurement Heart [id number] [id number] <Conclusion> Normal sinus rhythm Voltage criteria for left ventricular hypertrophy Nonspecific ST and T wave abnormality Abnormal ECG
[2020-10-26 16:00] VITALS: BP 131/75
--- NOTE | 2020-10-26 18:06 | NUR ---
NURSE NOTES: Pt spit out tylenol
--- NOTE | 2020-10-26 18:50 | NUR ---
NURSE HAND-OFF REPORT: Important Events on Shift:[Pt continues to desat if nonrebreather taken off, tachypneic throughout shift ] Patient Status: [in bed, stable/] Diet: [CCHO M soft] Pending Orders: [] Pending Results/Labs:[Regular covid sent out today] Pending MD notification:[] Latest Vital Signs: Temperature , Pulse 95 , B/P 131 /75 , Respiratory Rate 22 , O2 SAT 94 , Non-Rebreather, O2 Flow Rate 75.0 . Vital Sign Comment: [] EKG Rhythm: Sinus Rhythm Rhythm change?: N MD Notified?: N -Dr. Henry CANTRELL Response: New consult With Trish Tobin Iniguez Fall Score: 60 Fall Risk: High Risk Safety Measures: Call light Within Reach, Bed Alarm Zone 1, Side Rails Side Rails x3, Bed position Low and Locked. Fall Precautions: Yellow Socks Patient Fall Education Report given to [Pending Rn assignment]. Addendum: 10/26/20 at 1931 by Bri Medel RN Report given to Timmy CORONADO. Please note no SCD machines available, night RN made aware.
--- NOTE | 2020-10-26 19:36 | NUR ---
NURSE NOTES: Patient received from Ani RN. Patient alert and oriented x1. Saturating well on 15L of oxygen via Non rebreather mask. IV site patent and intact on Right FA 22G running 1/2 NS @ 75mls/hr. No c/o pain and no ss of distress. Patient on Bilateral soft wrist restraints, skin is intact. Purewick on. Bed in lowest position and locked. Call light and bedside table within reach. Will continue plan of care.
[2020-10-26 20:00] VITALS: BP 133/74
--- NOTE | 2020-10-26 21:04 | NUR ---
NURSE NOTES: Patient had HR of [address] Fernández Aware. No new orders. No c/o chest pain. Vital signs WNL. Will continue to monitor.
[2020-10-27] VITALS: BP 133/84
[2020-10-27 04:00] VITALS: BP 137/80
[2020-10-27] MEDS: NovoLOG Insulin Flexpen SUBQ SCH ×4 (05:47→21:25)
[2020-10-27] MEDS: metFORMIN 500mg tab ORAL SCH ×2 (06:19→17:25)
--- NOTE | 2020-10-27 06:49 | Hematology/Onc Progress Note ---
Assessment/Plan Assessment/Plan Assessment and Recs # Coagulopathy likely due to underlying infection --> inr elevated, obtain mixing study for ptt/pt --> treat underlying infection -> vitamin k as needed # Anemia of chronic disease --> anemia panel reviewed -> hgb 11-->8.4->9.6 --> likely hemoconcentrated, on ivf --> as per gi care # Leukocytosis with Jesus pneumonia r/o covid --> abx per pulm --> r/o covid19 --> wbc 14-->16 # Weight loss --> age appropriate cancer screening # Failure of thrive -> pt/ot -> daily weights # Intractable pain rt knee and lt shoulder # chf # dm # htn # djd Appreciate consultation and darrius RN Subjective HEENT: Denies: no symptoms, eye pain, blurred vision, tearing, double vision, ear pain, ear discharge, nose pain, nose congestion, throat pain, throat swelling, mouth pain, mouth swelling, other Cardiovascular: Denies: no symptoms, chest pain, edema, irregular heart rate, l ightheadedness, palpitations, syncope, other Respiratory: Denies: no symptoms, cough, shortness of breath, SOB with excertion, SOB at rest, sputum, wheezing, other Gastrointestinal/Abdominal: Denies: no symptoms, abdomen distended, abdominal pain, black stools, tarry stools, blood in stool, constipated, diarrhea, difficulty swallowing, nausea, poor appetite, poor fluid intake, rectal bleeding, vomiting, other Genitourinary: Denies: no symptoms, burning, discharge, frequency, flank pain, hematuria, incontinence, pain, urgency, other Neurologic/Psychiatric: Denies: no symptoms, anxiety, depressed, emotional problems, headache, numbness, paresthesia, pre-existing deficit, seizure, tingling, tremors, weakness, other Allergies: Coded Allergies: IBUPROFEN (Verified Allergy, Intermediate, rash, 01/24/13) prescription strength only MORPHINE (Verified Allergy, Intermediate, rash, 01/24/13) OXYCODONE (Unverified Allergy, Unknown, 03/09/15) pt cant remember Subjective 10/25 stephens intact, has been refusing care, no bleeding, stephens intact 10/26 labs still pending, from yesterday, hgb signif lower, no major events 10/27 labs noted, on 15l, also tachy, cards aware Objective Objective Current Medications Medications (Trade) Dose Ordered Sig/Elen Route PRN Reason Start Time Stop Time Status Last Admin Dose Admin Acetaminophen (Tylenol) 500 mg Q6H PRN ORAL Mild Pain (Pain Scale 1-3) 10/23/20 10:15 11/22/20 10:14 Acetaminophen (Tylenol) 500 mg TID ORAL 10/23/20 13:00 11/22/20 12:59 10/26/20 15:16 Acetaminophen/ Hydrocodone Bitart ([place] 5/325) 1 tab Q4H PRN ORAL Moderate Pain (Pain Scale 4-6) 10/23/20 10:15 10/30/20 10:14 10/26/20 04:48 Amlodipine Besylate (Norvasc) 10 mg DAILY ORAL 10/24/20 09:00 11/23/20 08:59 10/26/20 09:41 Aspirin (Ecotrin) 81 mg DAILY ORAL 10/24/20 09:00 12/08/20 08:59 10/26/20 09:40 Azithromycin 500 mg/Dextrose 275 ml @ 275 mls/hr Q24HRS IV 10/23/20 12:00 10/29/20 12:59 10/26/20 11:24 Ceftriaxone Sodium 1 gm/ Dextrose 55 ml @ 110 mls/hr Q24H IVPB 10/23/20 10:15 10/30/20 10:14 10/26/20 09:42 Dexamethasone Sodium Phosphate (Decadron 4mg/ml vial) 6 mg DAILY IVP 10/26/20 11:00 11/04/20 09:01 10/26/20 11:25 Dextrose (Dextrose 50%) 25 ml Q30M PRN IV Hypoglycemia 10/23/20 10:15 01/21/21 10:14 Dextrose (Dextrose 50%) 50 ml Q30M PRN IV Hypoglycemia 10/23/20 10:15 01/21/21 10:14 Insulin Aspart (NovoLOG) BEFORE MEALS AND HS SUBQ 10/23/20 11:30 01/21/21 11:29 10/24/20 06:56 Metformin HCl (Glucophage) 1,000 mg BIAC ORAL 10/23/20 16:30 11/22/20 16:29 12/2/20 06:19 Nitroglycerin (Ntg) 0.4 mg Q5M PRN SL Prn Chest Pain 10/26/20 05:15 11/25/20 05:14 10/26/20 05:25 Ondansetron HCl (Zofran) 4 mg Q6H PRN IVP Nausea & Vomiting 10/23/20 07:15 11/22/20 07:14 10/23/20 07:23 Sodium Chloride 1,000 ml @ 75 mls/hr [id number] IV 10/23/20 11:23 11/22/20 11:22 10/26/20 17:23 Last 24 Hour Vital Signs Date Time Temp Pulse Resp B/P (MAP) Pulse Ox O2 Delivery O2 Flow Rate FiO2 10/27/20 04:00 97.7 108 24 137/80 (99) 95 24 10/27/20 04:00 103 10/27/20 00:00 98.6 115 24 133/84 (100) 96 24 10/27/20 00:00 102 10/26/20 21:00 187 10/26/20 21:00 Non-Rebreather 15.0 10/26/20 20:00 98.3 105 24 133/74 (93) 95 105 10/26/20 20:00 100 10/26/20 16:00 97.5 101 22 131/75 (93) 94 101 10/26/20 16:00 95 10/26/20 15:46 98.1 10/26/20 12:00 95 10/26/20 12:00 98.1 101 24 117/61 (79) 94 104 10/26/20 10:11 98.3 10/26/20 09:41 104 117/70 10/26/20 09:00 Non-Rebreather 75.0 10/26/20 08:00 98.3 104 22 117/70 (86) 97 104 10/26/20 07:50 102 10/26/20 05:25 118/65 10/26/20 05:16 129/76 10/26/20 05:10 149/71 10/26/20 00:00 98.2 89 22 124/64 (84) 94 89 10/25/20 21:22 Nasal Cannula 2.0 10/25/20 20:00 97.9 89 20 123/63 (83) 94 89 10/25/20 16:30 98.1 76 18 104/57 (73) 98 10/25/20 15:40 Nasal Cannula 2.0 10/25/20 12:00 98.0 86 18 120/50 (73) 98 10/25/20 12:00 84 10/25/20 09:15 89 111/60 10/25/20 09:00 Nasal Cannula 2.0 10/25/20 08:00 97.9 89 18 111/60 (77) 99 10/25/20 07:40 93 Intake and Output 10/26/20 10/27/20 19:00 07:00 Output Total 400 ml Balance -400 ml Output Urine Total 400 ml # Voids 2 Labs Test 10/24/20 10:20 10/24/20 12:09 10/24/20 16:56 10/24/20 20:38 PTT Mixing Study 28.6 sec (22.9-30.2) APTT Patient/Control Mix (.) Mix PTT Incubation Time (.) Mix PTT Normal/Saline 1:1 Immediate (.) Thrombin Time Normal Plasma (.) Iron Level 13 ug/dL (50-175) Total Iron Binding Capacity 194 ug/dL (250-450) Percent Iron Saturation 7 % (15-50) Unsaturated Iron Binding 181 ug/dL (112-346) Ferritin 154 NG/ML (8-388) Lactate Dehydrogenase 370 U/L (81-234) POC Whole Blood Glucose 117 MG/DL (74-106) 99 MG/DL (74-106) Test 10/25/20 05:30 10/25/20 05:47 10/25/20 08:00 10/25/20 11:56 Sodium Level 136 MMOL/L (136-145) Potassium Level 3.3 MMOL/L (3.5-5.1) Chloride Level 99 MMOL/L (98-107) Carbon Dioxide Level 32 MMOL/L (21-32) Anion Gap 5 mmol/L (5-15) Blood Urea Nitrogen 12 mg/dL (7-18) Creatinine 0.5 MG/DL (0.55-1.30) Estimat Glomerular Filtration Rate > 60 mL/min (>60) Glucose Level 82 MG/DL (74-106) Calcium Level 8.3 MG/DL (8.5-10.1) Troponin I 0.000 ng/mL (0.000-0.056) Pro-B-Type Natriuretic Peptide 692 pg/mL (0-125) Thyroid Stimulating Hormone (TSH) 0.178 uiU/mL (0.358-3.740) Free Thyroxine 1.38 NG/DL (0.76-1.46) POC Whole Blood Glucose 79 MG/DL (74-106) 111 MG/DL (74-106) White Blood Count 13.8 K/UL (4.8-10.8) Red Blood Count 2.67 M/UL (4.20-5.40) Hemoglobin 8.2 G/DL (12.0-16.0) Hematocrit 25.5 % (37.0-47.0) Mean Corpuscular Volume 96 FL (80-99) Mean Corpuscular Hemoglobin 30.7 PG (27.0-31.0) Mean Corpuscular Hemoglobin Concent 32.1 G/DL (32.0-36.0) Red Cell Distribution Width 17.7 % (11.6-14.8) Platelet Count 284 K/UL (150-450) Mean Platelet Volume 6.7 FL (6.5-10.1) Neutrophils (%) (Auto) 77.1 % (45.0-75.0) Lymphocytes (%) (Auto) 11.5 % (20.0-45.0) Monocytes (%) (Auto) 6.4 % (1.0-10.0) Eosinophils (%) (Auto) 4.1 % (0.0-3.0) Basophils (%) (Auto) 1.0 % (0.0-2.0) Test 10/25/20 17:05 10/26/20 05:07 10/26/20 05:35 10/26/20 07:35 POC Whole Blood Glucose 128 MG/DL (74-106) Arterial Blood pH 7.369 (7.350-7.450) 7.336 (7.350-7.450) Arterial Blood Partial Pressure CO2 45.3 mmHg (35.0-45.0) 57.3 mmHg (35.0-45.0) Arterial Blood Partial Pressure O2 96.2 mmHg (75.0-100.0) 94.1 mmHg (75.0-100.0) Arterial Blood HCO3 25.5 mmol/L (22.0-26.0) 29.9 mmol/L (22.0-26.0) Arterial Blood Oxygen Saturation 96.4 % (95-100) 96.4 % (95-100) Arterial Blood Base Excess 0.1 (-2-2) 3.3 (-2-2) Minh Test Positive Positive Test 10/26/20 10:45 10/26/20 14:25 10/26/20 20:20 10/27/20 05:18 White Blood Count 16.1 K/UL (4.8-10.8) 16.1 K/UL (4.8-10.8) Red Blood Count 2.85 M/UL (4.20-5.40) 3.17 M/UL (4.20-5.40) Hemoglobin 8.7 G/DL (12.0-16.0) 9.6 G/DL (12.0-16.0) Hematocrit 27.6 % (37.0-47.0) 30.9 % (37.0-47.0) Mean Corpuscular Volume 97 FL (80-99) 98 FL (80-99) Mean Corpuscular Hemoglobin 30.6 PG (27.0-31.0) 30.3 PG (27.0-31.0) Mean Corpuscular Hemoglobin Concent 31.5 G/DL (32.0-36.0) 31.0 G/DL (32.0-36.0) Red Cell Distribution Width 16.8 % (11.6-14.8) 16.6 % (11.6-14.8) Platelet Count 306 K/UL (150-450) 320 K/UL (150-450) Mean Platelet Volume 7.3 FL (6.5-10.1) 6.9 FL (6.5-10.1) Neutrophils (%) (Auto) 84.0 % (45.0-75.0) % (45.0-75.0) Lymphocytes (%) (Auto) 7.7 % (20.0-45.0) % (20.0-45.0) Monocytes (%) (Auto) 6.1 % (1.0-10.0) % (1.0-10.0) Eosinophils (%) (Auto) 0.1 % (0.0-3.0) % (0.0-3.0) Basophils (%) (Auto) 2.1 % (0.0-2.0) % (0.0-2.0) Sodium Level 137 MMOL/L (136-145) Potassium Level 3.1 MMOL/L (3.5-5.1) Chloride Level 99 MMOL/L (98-107) Carbon Dioxide Level 33 MMOL/L (21-32) Anion Gap 6 mmol/L (5-15) Blood Urea Nitrogen 9 mg/dL (7-18) Creatinine 0.6 MG/DL (0.55-1.30) Estimat Glomerular Filtration Rate > 60 mL/min (>60) Glucose Level 127 MG/DL (74-106) Calcium Level 8.3 MG/DL (8.5-10.1) Differential Total Cells Counted 100 Neutrophils % (Manual) 90 % (45-75) Lymphocytes % (Manual) 6 % (20-45) Monocytes % (Manual) 3 % (1-10) Eosinophils % (Manual) 0 % (0-3) Basophils % (Manual) 1 % (0-2) Band Neutrophils 0 % (0-8) Platelet Estimate Adequate Platelet Morphology Normal Hypochromasia 1+ Anisocytosis 1+ Macrocytosis 1+ POC Whole Blood Glucose 134 MG/DL (74-106) 114 MG/DL (74-106) Micro Microbiology Date/Time Source Procedure Growth Status 10/26/20 11:21 Nasopharynx SARS-CoV-2 RdRp Gene Assay - Final Complete Height (Feet): 5 Height (Inches): 1.00 Weight (Pounds): 135 Objective Physical Exam Vitals: noted General Appearance: no apparent distres Heent: bilateral eye normal inspection, bilateral eye PERRL Neck: full range of motion, supple/symm/no masses Respiratory: chest non-tender, lungs clear, normal breath sounds, speaking full sentences Cardiovascular: regular rate, rhythm, no edema Gastrointestinal: normal bowel sounds, non tender Rectal: deferred Genitourinary: normal inspection, no CVA tenderness Neurologic: alert, oriented x3 Lymphatic: no adenopathy Arturo Fields MD Oct 27, 2020 06:49
--- NOTE | 2020-10-27 07:02 | NUR ---
NURSE HAND-OFF REPORT: Important Events on Shift: Vtach HR of 180s notified Dr Fernández no new orders. Patient Status: Confused, on restraints, alert, fc Diet:CCHO MEdium soft diet Pending Orders: Pending Results/Labs:[] Pending MD notification:[] Latest Vital Signs: Temperature 97.7 , Pulse 24 , B/P 137 /80 , Respiratory Rate 24 , O2 SAT 95 , Non-Rebreather, O2 Flow Rate 15.0 . Vital Sign Comment: [] EKG Rhythm: Sinus Tachycardia Rhythm change?: N MD Notified?: Y -Dr. Jolene CANTRELL Response: No New Orders Received Latest Iniguez Fall Score: 60 Fall Risk: High Risk Safety Measures: Call light Within Reach, Bed Alarm Zone 1, Side Rails Side Rails x3, Bed position Low and Locked. Fall Precautions: Yellow Socks Patient Fall Education Report given to []. Addendum: 10/27/20 at 0738 by Kiki Collier RN Report given to Priti CORONADO
--- NOTE | 2020-10-27 07:15 | NUR ---
NURSE NOTES: Received patient report from Kiki. Pt is alert and oriented x1. Pt is on non rebreather mask @ 15L. No pain or discomfort noted at this time. Pt with RFA 22G patent and intact. Pt has L AC 22G patent and intact. Skin is intact. Bed in lowest position, locked with side rails x2 up. Call light within reach.
[2020-10-27 07:25] LABS: HEMOGLOBIN 9.6 G/DL (12.0-16.0); MEAN CORPUSCULAR VOLUME 93 FL (80-99); PLATELET COUNT 363 K/UL (150-450); RED BLOOD COUNT 3.13 M/UL (4.20-5.40); RED CELL DISTRIBUTION WIDTH 17.7 % (11.6-14.8); WHITE BLOOD COUNT 18.6 K/UL (4.8-10.8)
[2020-10-27 07:36] LABS: ANION GAP 11 mmol/L (5-15); BLOOD UREA NITROGEN 12 mg/dL (7-18); CALCIUM 9.1 MG/DL (8.5-10.1); CARBON DIOXIDE 28 MMOL/L (21-32); CHLORIDE 98 MMOL/L (98-107); CREATININE 0.6 MG/DL (0.55-1.30); POTASSIUM 3.4 MMOL/L (3.5-5.1); SODIUM 137 MMOL/L (136-145)
[2020-10-27 08:00] VITALS: BP 155/85
--- NOTE | 2020-10-27 08:40 | General Progress Note ---
Subjective Date patient seen: Oct 27, 2020 Time patient seen: 07:15 - am Allergies: Coded Allergies: IBUPROFEN (Verified Allergy, Intermediate, rash, 01/24/13) prescription strength only MORPHINE (Verified Allergy, Intermediate, rash, 01/24/13) OXYCODONE (Unverified Allergy, Unknown, 03/09/15) pt cant remember Subjective HISTORY OF PRESENT ILLNESS: This is a 80-year-old female who is being been seen on the telemetry floor of [facility]. Patient showing no signs of pain or distress. One dose of [place] given in the last 24hrs, in bed and has no new complaints at this time. REVIEW OF SYSTEMS: Denies rash, fever, chills, sweating, dizziness, drowsiness, sore throat, or change in weight. No nausea, vomiting, diarrhea, or blood in the stool. No dysuria. Objective Last 24 Hour Vital Signs Date Time Temp Pulse Resp B/P (MAP) Pulse Ox O2 Delivery O2 Flow Rate FiO2 10/27/20 04:00 97.7 108 24 137/80 (99) 95 24 10/27/20 04:00 103 10/27/20 00:00 98.6 115 24 133/84 (100) 96 24 10/27/20 00:00 102 10/26/20 21:00 187 10/26/20 21:00 Non-Rebreather 15.0 10/26/20 20:00 98.3 105 24 133/74 (93) 95 105 10/26/20 20:00 100 10/26/20 16:00 97.5 101 22 131/75 (93) 94 101 10/26/20 16:00 95 10/26/20 15:46 98.1 10/26/20 12:00 95 10/26/20 12:00 98.1 101 24 117/61 (79) 94 104 10/26/20 10:11 98.3 10/26/20 09:41 104 117/70 10/26/20 09:00 Non-Rebreather 75.0 Intake and Output 10/26/20 10/27/20 19:00 07:00 Output Total 400 ml Balance -400 ml Output Urine Total 400 ml # Voids 2 Laboratory Tests 10/26/20 10:45: White Blood Count 16.1H, Red Blood Count 2.85L, Hemoglobin 8.7L, Hematocrit 27.6L, Mean Corpuscular Volume 97, Mean Corpuscular Hemoglobin 30.6, Mean Corpuscular Hemoglobin Concent 31.5L, Red Cell Distribution Width 16.8H, Platelet Count 306, Mean Platelet Volume 7.3, Neutrophils (%) (Auto) 84.0H, Lymphocytes (%) (Auto) 7.7L, Monocytes (%) (Auto) 6.1, Eosinophils (%) (Auto) 0.1, Basophils (%) (Auto) 2.1H, Sodium Level 137, Potassium Level 3.1L, Chloride Level 99, Carbon Dioxide Level 33H, Anion Gap 6, Blood Urea Nitrogen 9, Creatinine 0.6, Estimat Glomerular Filtration Rate > 60, Glucose Level 127H, Calcium Level 8.3L, Total Protein (PEP) [Pending], Albumin (PEP) [Pending], Globulin (PEP) [Pending], Albumin/Globulin Ratio [Pending], Naswh-4-Xysguegqt [Pending], Oktmp-1-Cdvsylmxo [Pending], Beta Globulins [Pending], Beta Gamma Globulin [Pending], PEP Abnormal Protein Bands [Pending], Protein Elec trophoresis Interpret [Pending] 10/26/20 14:25: White Blood Count 16.1H, Red Blood Count 3.17L, Hemoglobin 9.6L, Hematocrit 30.9L, Mean Corpuscular Volume 98, Mean Corpuscular Hemoglobin 30.3, Mean Corpuscular Hemoglobin Concent 31.0L, Red Cell Distribution Width 16.6H, Platelet Count 320, Mean Platelet Volume 6.9, Neutrophils (%) (Auto) , Lymphocytes (%) (Auto) , Monocytes (%) (Auto) , Eosinophils (%) (Auto) , Basophils (%) (Auto) , Differential Total Cells Counted 100, Neutrophils % (Manual) 90H, Lymphocytes % (Manual) 6L, Monocytes % (Manual) 3, Eosinophils % (Manual) 0, Basophils % (Manual) 1, Band Neutrophils 0, Platelet Estimate Adequate, Platelet Morphology Normal, Hypochromasia 1+, Anisocytosis 1+, Macrocytosis 1+ 10/26/20 20:20: POC Whole Blood Glucose 134H 10/27/20 05:18: POC Whole Blood Glucose 114H 12/2/20 06:54: White Blood Count 18.6H, Red Blood Count 3.13L, Hemoglobin 9.6L, Hematocrit 29.0L, Mean Corpuscular Volume 93, Mean Corpuscular Hemoglobin 30.8, Mean Corpuscular Hemoglobin Concent 33.2, Red Cell Distribution Width 17.7H, Platelet Count 363, Mean Platelet Volume 6.7, Neutrophils (%) (Auto) , Lymphocytes (%) (Auto) , Monocytes (%) (Auto) , Eosinophils (%) (Auto) , Basophils (%) (Auto) , Neutrophils % (Manual) [Pending], Lymphocytes % (Manual) [Pending], Platelet Estimate [Pending], Platelet Morphology [Pending], Sodium Level 137, Potassium Level 3.4L, Chloride Level 98, Carbon Dioxide Level 28, Anion Gap 11, Blood Urea Nitrogen 12, Creatinine 0.6, Estimat Glomerular Filtration Rate > 60, Glucose Level 138H, Calcium Level 9.1 Height (Feet): 5 Height (Inches): 1.00 Weight (Pounds): 135 Objective PHYSICAL EXAMINATION: GENERAL: Alert, awake, and oriented. LUNGS: Decreased breath sounds bilaterally. HEART: S1 and S2 regular. ABDOMEN: Soft and nontender. EXTREMITIES: No cyanosis. No clubbing. NEURO: No changes. Assessment/Plan Assessment/Plan: (1) Multiple joint pain (2) Degenerative Joint disease Patient to be continued on Nottingham D/w Dr. Mehta and he concurred. Jb Seals Oct 27, 2020 08:40
[2020-10-27] MEDS ORDERED: Acetaminophen 500mg (ES) tab ORAL PRN (09:00)
[2020-10-27] MEDS: Aspirin EC 81mg tab ORAL SCH (09:14)
[2020-10-27] MEDS: cefTRIAXone 1 GM in D5W 55 ML IVPB SCH (09:15)
--- NOTE | 2020-10-27 11:29 | Infectious Diseases Prog Note ---
Assessment/Plan Assessment/Plan antibiotics : ceftriaxone, azithromycin A 1. pneumonia COVID 19 negative x 2 2. diabetes mellitus 3. hypertension 4. CHF 5. leucocytosis secondary to steroids P 1. continue ceftriaxone, azithromycin 2. d/c dexamethasone 3. will follow up cultures Subjective Constitutional: Denies: fever, chills Respiratory: Reports: shortness of breath, dry cough Gastrointestinal/Abdominal: Denies: nausea, vomiting, diarrhea Musculoskeletal: Denies: pain Allergies: Coded Allergies: IBUPROFEN (Verified Allergy, Intermediate, rash, 01/24/13) prescription strength only MORPHINE (Verified Allergy, Intermediate, rash, 01/24/13) OXYCODONE (Unverified Allergy, Unknown, 03/09/15) pt cant remember Objective Last 24 Hour Vital Signs Date Time Temp Pulse Resp B/P (MAP) Pulse Ox O2 Delivery O2 Flow Rate FiO2 10/27/20 09:14 114 155/85 10/27/20 09:00 Non-Rebreather 15.0 10/27/20 08:00 106 10/27/20 08:00 97.9 114 20 155/85 (108) 95 114 10/27/20 04:00 97.7 108 24 137/80 (99) 95 24 10/27/20 04:00 103 10/27/20 00:00 98.6 115 24 133/84 (100) 96 24 10/27/20 00:00 102 10/26/20 21:00 187 10/26/20 21:00 Non-Rebreather 15.0 10/26/20 20:00 98.3 105 24 133/74 (93) 95 105 10/26/20 20:00 100 10/26/20 16:00 97.5 101 22 131/75 (93) 94 101 10/26/20 16:00 95 10/26/20 15:46 98.1 10/26/20 12:00 95 10/26/20 12:00 98.1 101 24 117/61 (79) 94 104 Height (Feet): 5 Height (Inches): 1.00 Weight (Pounds): 135 Respiratory/Chest: lungs clear Cardiovascular: normal rate, regular rhythm, no gallop/murmur Abdomen: soft, non tender Extremities: no edema Microbiology Date/Time Source Procedure Growth Status 10/26/20 11:21 Nasopharynx SARS-CoV-2 RdRp Gene Assay - Final Complete Laboratory Tests Test 10/26/20 14:25 10/26/20 20:20 10/27/20 05:18 10/27/20 06:54 White Blood Count 16.1 K/UL (4.8-10.8) H 18.6 K/UL (4.8-10.8) H Red Blood Count 3.17 M/UL (4.20-5.40) L 3.13 M/UL (4.20-5.40) L Hemoglobin 9.6 G/DL (12.0-16.0) L 9.6 G/DL (12.0-16.0) L Hematocrit 30.9 % (37.0-47.0) L 29.0 % (37.0-47.0) L Mean Corpuscular Volume 98 FL (80-99) 93 FL (80-99) Mean Corpuscular Hemoglobin 30.3 PG (27.0-31.0) 30.8 PG (27.0-31.0) Mean Corpuscular Hemoglobin Concent 31.0 G/DL (32.0-36.0) L 33.2 G/DL (32.0-36.0) Red Cell Distribution Width 16.6 % (11.6-14.8) H 17.7 % (11.6-14.8) H Platelet Count 320 K/UL (150-450) 363 K/UL (150-450) Mean Platelet Volume 6.9 FL (6.5-10.1) 6.7 FL (6.5-10.1) Neutrophils (%) (Auto) % (45.0-75.0) % (45.0-75.0) Lymphocytes (%) (Auto) % (20.0-45.0) % (20.0-45.0) Monocytes (%) (Auto) % (1.0-10.0) % (1.0-10.0) Eosinophils (%) (Auto) % (0.0-3.0) % (0.0-3.0) Basophils (%) (Auto) % (0.0-2.0) % (0.0-2.0) Differential Total Cells Counted 100 100 Neutrophils % (Manual) 90 % (45-75) H 83 % (45-75) H Lymphocytes % (Manual) 6 % (20-45) L 11 % (20-45) L Monocytes % (Manual) 3 % (1-10) 6 % (1-10) Eosinophils % (Manual) 0 % (0-3) 0 % (0-3) Basophils % (Manual) 1 % (0-2) 0 % (0-2) Band Neutrophils 0 % (0-8) 0 % (0-8) Platelet Estimate Adequate Adequate Platelet Morphology Normal Normal Hypochromasia 1+ 1+ Anisocytosis 1+ 1+ Macrocytosis 1+ POC Whole Blood Glucose 134 MG/DL (74-106) H 114 MG/DL (74-106) H Sodium Level 137 MMOL/L (136-145) Potassium Level 3.4 MMOL/L (3.5-5.1) L Chloride Level 98 MMOL/L (98-107) Carbon Dioxide Level 28 MMOL/L (21-32) Anion Gap 11 mmol/L (5-15) Blood Urea Nitrogen 12 mg/dL (7-18) Creatinine 0.6 MG/DL (0.55-1.30) Estimat Glomerular Filtration Rate > 60 mL/min (>60) Glucose Level 138 MG/DL (74-106) H Calcium Level 9.1 MG/DL (8.5-10.1) Current Medications Medications (Trade) Dose Ordered Sig/Elen Route PRN Reason Start Time Stop Time Status Last Admin Dose Admin Acetaminophen (Tylenol) 500 mg TIDPRN PRN ORAL PAIN 1-6 10/27/20 09:00 11/26/20 08:59 Acetaminophen/ Hydrocodone Bitart ([place] 5/325) 1 tab Q4H PRN ORAL severe pain 10/23/20 10:15 10/30/20 10:14 10/26/20 04:48 Amlodipine Besylate (Norvasc) 10 mg DAILY ORAL 10/24/20 09:00 11/23/20 08:59 10/27/20 09:14 Aspirin (Ecotrin) 81 mg DAILY ORAL 10/24/20 09:00 12/08/20 08:59 10/27/20 09:14 Azithromycin 500 mg/Dextrose 275 ml @ 275 mls/hr Q24HRS IV 10/23/20 12:00 10/29/20 12:59 10/26/20 11:24 Ceftriaxone Sodium 1 gm/ Dextrose 55 ml @ 110 mls/hr Q24H IVPB 10/23/20 10:15 10/30/20 10:14 10/27/20 09:15 Dexamethasone Sodium Phosphate (Decadron 4mg/ml vial) 6 mg DAILY IVP 10/26/20 11:00 11/04/20 09:01 10/27/20 09:15 Dextrose (Dextrose 50%) 25 ml Q30M PRN IV Hypoglycemia 10/23/20 10:15 01/21/21 10:14 Dextrose (Dextrose 50%) 50 ml Q30M PRN IV Hypoglycemia 10/23/20 10:15 01/21/21 10:14 Insulin Aspart (NovoLOG) BEFORE MEALS AND HS SUBQ 10/23/20 11:30 01/21/21 11:29 10/24/20 06:56 Metformin HCl (Glucophage) 1,000 mg BIAC ORAL 10/23/20 16:30 11/22/20 16:29 10/27/20 06:19 Nitroglycerin (Ntg) 0.4 mg Q5M PRN SL Prn Chest Pain 10/26/20 05:15 11/25/20 05:14 10/26/20 05:25 Ondansetron HCl (Zofran) 4 mg Q6H PRN IVP Nausea & Vomiting 10/23/20 07:15 11/22/20 07:14 10/23/20 07:23 Sodium Chloride 1,000 ml @ 75 mls/hr [id number] IV 10/23/20 11:23 11/22/20 11:22 10/27/20 09:14 Elin Victoria MD Oct 27, 2020 11:29
[2020-10-27 12:00] VITALS: BP 156/86
[2020-10-27] MEDS: Azithromycin 500 MG in D5W 275 ML IV SCH (12:58)
--- NOTE | 2020-10-27 13:19 | NUR ---
CASE MANAGEMENT:REVIEW 10/27/20 SI: BILATERAL COVID PNA 97.9 114 20 155/85 95% ON 15L NON REBREATHER WBC+18.6 K-3.4 IS: IV AZITHROMYCIN Q24 IVF@75/HR SS INSULIN AC+HS METFORMIN PO BID NORVASC PO QD ASA PO QD : TELEMETRY STATUS DCP; FROM HOME
--- NOTE | 2020-10-27 13:32 | Diagnostic Imaging Report ---
Indication: Reason For Exam: ABN LABS Technique: Grayscale and duplex images of the bilateral lower extremity veins Comparison: None Findings: Exam is somewhat limited, as the left knee is bandaged in the left popliteal vein could not be assessed . Otherwise, bilaterally, grayscale and duplex images demonstrate no evidence of intraluminal thrombus. Normal phasic Doppler waveforms, demonstrating normal augmentation response and no evidence of valvular insufficiency. Greater saphenous vein(s) and tibial veins are patent. Normal compressibility. Impression: Negative for evidence of lower extremity deep venous thrombosis bilaterally Note somewhat limited exam, with nonvisualization of the left popliteal vein. Disease in this segment can therefore not be confidently excluded.
--- NOTE | 2020-10-27 14:27 | Cardiac Electrophysiology PN ---
Assessment/Plan Assessment/Plan 1. Long run of 16 beats of nonsustained ventricular tachycardia. Ruled out for [place] Echocardiogram EF 65%. Stress test vs Cardiac cath after covid is negative 2. Shortness of breath and lung infiltrate. Being ruled out for COVID. FU with Dr Betancur 3. Hypertension, on Norvasc 10 mg daily. 4. Diabetes, on metformin. 5. Pneumonia, on azithromycin and ceftriaxone. DW RN Subjective Subjective In isolation to R/O Covid. On tele after rapid response for desaturation. In SR Objective Last 24 Hour Vital Signs Date Time Temp Pulse Resp B/P (MAP) Pulse Ox O2 Delivery O2 Flow Rate FiO2 10/27/20 12:00 97.6 119 22 156/86 (109) 95 119 10/27/20 12:00 111 10/27/20 09:14 114 155/85 10/27/20 09:00 Non-Rebreather 15.0 10/27/20 08:00 106 10/27/20 08:00 97.9 114 20 155/85 (108) 95 114 10/27/20 04:00 97.7 108 24 137/80 (99) 95 24 10/27/20 04:00 103 10/27/20 00:00 98.6 115 24 133/84 (100) 96 24 10/27/20 00:00 102 10/26/20 21:00 187 10/26/20 21:00 Non-Rebreather 15.0 10/26/20 20:00 98.3 105 24 133/74 (93) 95 105 10/26/20 20:00 100 10/26/20 16:00 97.5 101 22 131/75 (93) 94 101 10/26/20 16:00 95 10/26/20 15:46 98.1 Intake and Output 10/26/20 10/27/20 19:00 07:00 Output Total 400 ml Balance -400 ml Output Urine Total 400 ml # Voids 2 Laboratory Tests Test 10/26/20 14:25 10/26/20 20:20 10/27/20 05:18 10/27/20 06:54 White Blood Count 16.1 K/UL (4.8-10.8) H 18.6 K/UL (4.8-10.8) H Red Blood Count 3.17 M/UL (4.20-5.40) L 3.13 M/UL (4.20-5.40) L Hemoglobin 9.6 G/DL (12.0-16.0) L 9.6 G/DL (12.0-16.0) L Hematocrit 30.9 % (37.0-47.0) L 29.0 % (37.0-47.0) L Mean Corpuscular Volume 98 FL (80-99) 93 FL (80-99) Mean Corpuscular Hemoglobin 30.3 PG (27.0-31.0) 30.8 PG (27.0-31.0) Mean Corpuscular Hemoglobin Concent 31.0 G/DL (32.0-36.0) L 33.2 G/DL (32.0-36.0) Red Cell Distribution Width 16.6 % (11.6-14.8) H 17.7 % (11.6-14.8) H Platelet Count 320 K/UL (150-450) 363 K/UL (150-450) Mean Platelet Volume 6.9 FL (6.5-10.1) 6.7 FL (6.5-10.1) Neutrophils (%) (Auto) % (45.0-75.0) % (45.0-75.0) Lymphocytes (%) (Auto) % (20.0-45.0) % (20.0-45.0) Monocytes (%) (Auto) % (1.0-10.0) % (1.0-10.0) Eosinophils (%) (Auto) % (0.0-3.0) % (0.0-3.0) Basophils (%) (Auto) % (0.0-2.0) % (0.0-2.0) Differential Total Cells Counted 100 100 Neutrophils % (Manual) 90 % (45-75) H 83 % (45-75) H Lymphocytes % (Manual) 6 % (20-45) L 11 % (20-45) L Monocytes % (Manual) 3 % (1-10) 6 % (1-10) Eosinophils % (Manual) 0 % (0-3) 0 % (0-3) Basophils % (Manual) 1 % (0-2) 0 % (0-2) Band Neutrophils 0 % (0-8) 0 % (0-8) Platelet Estimate Adequate Adequate Platelet Morphology Normal Normal Hypochromasia 1+ 1+ Anisocytosis 1+ 1+ Macrocytosis 1+ POC Whole Blood Glucose 134 MG/DL (74-106) H 114 MG/DL (74-106) H Sodium Level 137 MMOL/L (136-145) Potassium Level 3.4 MMOL/L (3.5-5.1) L Chloride Level 98 MMOL/L (98-107) Carbon Dioxide Level 28 MMOL/L (21-32) Anion Gap 11 mmol/L (5-15) Blood Urea Nitrogen 12 mg/dL (7-18) Creatinine 0.6 MG/DL (0.55-1.30) Estimat Glomerular Filtration Rate > 60 mL/min (>60) Glucose Level 138 MG/DL (74-106) H Calcium Level 9.1 MG/DL (8.5-10.1) Microbiology Date/Time Source Procedure Growth Status 10/26/20 11:21 Nasopharynx SARS-CoV-2 RdRp Gene Assay - Final Complete Objective HEAD AND NECK: No JVD. LUNGS: Coarse rhonchi. CARDIOVASCULAR: regular S1 and S2 with no gallop or murmur. ABDOMEN: Soft. EXTREMITIES: No pitting edema. Pacheco Fernández MD Oct 27, 2020 14:27
--- NOTE | 2020-10-27 15:00 | Cardiac Electrophysiology PN ---
Assessment/Plan Assessment/Plan 1. Recurrent Long run of 16 beats of nonsustained ventricular tachycardia. Ruled out for [place] Had 8 beat sof VT again on 10/26/20 Echocardiogram EF 65%. Stress test vs Cardiac cath after covid is negative 2. Shortness of breath and lung infiltrate. Being ruled out for COVID. FU with Dr Betancur 3. Hypertension, on Norvasc 10 mg daily. 4. Diabetes, on metformin. 5. Pneumonia, on azithromycin and ceftriaxone. LINWOOD RN Subjective Subjective In isolation to R/O Covid. On tele after rapid response for desaturation. In SR. Had 7 beats of VT again on 9 pm on 10/26/20 Objective Last 24 Hour Vital Signs Date Time Temp Pulse Resp B/P (MAP) Pulse Ox O2 Delivery O2 Flow Rate FiO2 10/27/20 12:00 97.6 119 22 156/86 (109) 95 119 10/27/20 12:00 111 10/27/20 09:14 114 155/85 10/27/20 09:00 Non-Rebreather 15.0 10/27/20 08:00 106 10/27/20 08:00 97.9 114 20 155/85 (108) 95 114 10/27/20 04:00 97.7 108 24 137/80 (99) 95 24 10/27/20 04:00 103 10/27/20 00:00 98.6 115 24 133/84 (100) 96 24 10/27/20 00:00 102 10/26/20 21:00 187 10/26/20 21:00 Non-Rebreather 15.0 10/26/20 20:00 98.3 105 24 133/74 (93) 95 105 10/26/20 20:00 100 10/26/20 16:00 97.5 101 22 131/75 (93) 94 101 10/26/20 16:00 95 10/26/20 15:46 98.1 Intake and Output 10/26/20 10/27/20 19:00 07:00 Output Total 400 ml Balance -400 ml Output Urine Total 400 ml # Voids 2 Laboratory Tests Test 10/26/20 20:20 10/27/20 05:18 10/27/20 06:54 POC Whole Blood Glucose 134 MG/DL (74-106) H 114 MG/DL (74-106) H White Blood Count 18.6 K/UL (4.8-10.8) H Red Blood Count 3.13 M/UL (4.20-5.40) L Hemoglobin 9.6 G/DL (12.0-16.0) L Hematocrit 29.0 % (37.0-47.0) L Mean Corpuscular Volume 93 FL (80-99) Mean Corpuscular Hemoglobin 30.8 PG (27.0-31.0) Mean Corpuscular Hemoglobin Concent 33.2 G/DL (32.0-36.0) Red Cell Distribution Width 17.7 % (11.6-14.8) H Platelet Count 363 K/UL (150-450) Mean Platelet Volume 6.7 FL (6.5-10.1) Neutrophils (%) (Auto) % (45.0-75.0) Lymphocytes (%) (Auto) % (20.0-45.0) Monocytes (%) (Auto) % (1.0-10.0) Eosinophils (%) (Auto) % (0.0-3.0) Basophils (%) (Auto) % (0.0-2.0) Differential Total Cells Counted 100 Neutrophils % (Manual) 83 % (45-75) H Lymphocytes % (Manual) 11 % (20-45) L Monocytes % (Manual) 6 % (1-10) Eosinophils % (Manual) 0 % (0-3) Basophils % (Manual) 0 % (0-2) Band Neutrophils 0 % (0-8) Platelet Estimate Adequate Platelet Morphology Normal Hypochromasia 1+ Anisocytosis 1+ Sodium Level 137 MMOL/L (136-145) Potassium Level 3.4 MMOL/L (3.5-5.1) L Chloride Level 98 MMOL/L (98-107) Carbon Dioxide Level 28 MMOL/L (21-32) Anion Gap 11 mmol/L (5-15) Blood Urea Nitrogen 12 mg/dL (7-18) Creatinine 0.6 MG/DL (0.55-1.30) Estimat Glomerular Filtration Rate > 60 mL/min (>60) Glucose Level 138 MG/DL (74-106) H Calcium Level 9.1 MG/DL (8.5-10.1) Microbiology Date/Time Source Procedure Growth Status 10/26/20 11:21 Nasopharynx SARS-CoV-2 RdRp Gene Assay - Final Complete Objective HEAD AND NECK: No JVD. LUNGS: Coarse rhonchi. CARDIOVASCULAR: regular S1 and S2 with no gallop or murmur. ABDOMEN: Soft. EXTREMITIES: No pitting edema. Pacheco Fernández MD Oct 27, 2020 15:00
[2020-10-27 16:00] VITALS: BP 153/92
--- NOTE | 2020-10-27 16:48 | Pulmonology Progress Note ---
Subjective ROS Limited/Unobtainable: Yes Interval Events: Requiring higher FiO2 Constitutional: Denies: fever, chills HEENT: Repors: no symptoms Respiratory: Reports: no symptoms Cardiovascular: Reports: palpitations Gastrointestinal/Abdominal: Denies: nausea, vomiting, diarrhea Genitourinary: Reports: no symptoms Musculoskeletal: Denies: pain Allergies: Coded Allergies: IBUPROFEN (Verified Allergy, Intermediate, rash, 01/24/13) prescription strength only MORPHINE (Verified Allergy, Intermediate, rash, 01/24/13) OXYCODONE (Unverified Allergy, Unknown, 03/09/15) pt cant remember Subjective pt on non rebreather mask; pt states "my heart is beating fast" Objective Last 24 Hour Vital Signs Date Time Temp Pulse Resp B/P (MAP) Pulse Ox O2 Delivery O2 Flow Rate FiO2 10/27/20 12:00 97.6 119 22 156/86 (109) 95 119 10/27/20 12:00 111 10/27/20 09:14 114 155/85 10/27/20 09:00 Non-Rebreather 15.0 10/27/20 08:00 106 10/27/20 08:00 97.9 114 20 155/85 (108) 95 114 10/27/20 04:00 97.7 108 24 137/80 (99) 95 24 10/27/20 04:00 103 10/27/20 00:00 98.6 115 24 133/84 (100) 96 24 10/27/20 00:00 102 10/26/20 21:00 187 10/26/20 21:00 Non-Rebreather 15.0 10/26/20 20:00 98.3 105 24 133/74 (93) 95 105 10/26/20 20:00 100 Intake and Output 10/26/20 10/27/20 19:00 07:00 Output Total 400 ml Balance -400 ml Output Urine Total 400 ml # Voids 2 Objective pt's hands in restraints; O2 sat 95% non rebreather 15LPM General Appearance: no acute distress HEENT: normocephalic Respiratory: chest wall non-tender, decreased breath sounds, other - coarse rhonchi Cardiovascular: normal peripheral pulses, regular rhythm, tachycardia Abdomen: normal bowel sounds, soft, non tender Extremities: no cyanosis, no clubbing, no edema Skin: no rash Neurologic: alert Microbiology Date/Time Source Procedure Growth Status 10/26/20 11:21 Nasopharynx SARS-CoV-2 RdRp Gene Assay - Final Complete Laboratory Tests 10/26/20 20:20: POC Whole Blood Glucose 134H 10/27/20 05:18: POC Whole Blood Glucose 114H 10/27/20 06:54: White Blood Count 18.6H, Red Blood Count 3.13L, Hemoglobin 9.6L, Hematocrit 29.0L, Mean Corpuscular Volume 93, Mean Corpuscular Hemoglobin 30.8, Mean Corpuscular Hemoglobin Concent 33.2, Red Cell Distribution Width 17.7H, Platelet Count 363, Mean Platelet Volume 6.7, Neutrophils (%) (Auto) , Lymphocytes (%) (Auto) , Monocytes (%) (Auto) , Eosinophils (%) (Auto) , Basophils (%) (Auto) , Differential Total Cells Counted 100, Neutrophils % (Manual) 83H, Lymphocytes % (Manual) 11L, Monocytes % (Manual) 6, Eosinophils % (Manual) 0, Basophils % (Manual) 0, Band Neutrophils 0, Platelet Estimate Adequate, Platelet Morphology Normal, Hypochromasia 1+, Anisocytosis 1+, Sodium Level 137, Potassium Level 3.4L, Chloride Level 98, Carbon Dioxide Level 28, Anion Gap 11, Blood Urea Nitrogen 12, Creatinine 0.6, Estimat Glomerular Filtration Rate > 60, Glucose Level 138H, Calcium Level 9.1 Current Medications Medications (Trade) Dose Ordered Sig/Elen Route PRN Reason Start Time Stop Time Status Last Admin Dose Admin Acetaminophen (Tylenol) 500 mg TIDPRN PRN ORAL PAIN 1-6 10/27/20 09:00 11/26/20 08:59 Acetaminophen/ Hydrocodone Bitart ([place] 5/325) 1 tab Q4H PRN ORAL severe pain 10/23/20 10:15 10/30/20 10:14 10/26/20 04:48 Amlodipine Besylate (Norvasc) 10 mg DAILY ORAL 10/24/20 09:00 11/23/20 08:59 10/27/20 09:14 Aspirin (Ecotrin) 81 mg DAILY ORAL 10/24/20 09:00 12/08/20 08:59 10/27/20 09:14 Azithromycin 500 mg/Dextrose 275 ml @ 275 mls/hr Q24HRS IV 10/23/20 12:00 10/29/20 12:59 10/27/20 12:58 Ceftriaxone Sodium 1 gm/ Dextrose 55 ml @ 110 mls/hr Q24H IVPB 10/23/20 10:15 10/30/20 10:14 10/27/20 09:15 Dextrose (Dextrose 50%) 25 ml Q30M PRN IV Hypoglycemia 10/23/20 10:15 01/21/21 10:14 Dextrose (Dextrose 50%) 50 ml Q30M PRN IV Hypoglycemia 10/23/20 10:15 01/21/21 10:14 Insulin Aspart (NovoLOG) BEFORE MEALS AND HS SUBQ 10/23/20 11:30 01/21/21 11:29 10/27/20 11:30 Metformin HCl (Glucophage) 1,000 mg BIAC ORAL 10/23/20 16:30 11/22/20 16:29 10/27/20 06:19 Nitroglycerin (Ntg) 0.4 mg Q5M PRN SL Prn Chest Pain 10/26/20 05:15 11/25/20 05:14 10/26/20 05:25 Ondansetron HCl (Zofran) 4 mg Q6H PRN IVP Nausea & Vomiting 10/23/20 07:15 11/22/20 07:14 10/23/20 07:23 Sodium Chloride 1,000 ml @ 75 mls/hr [id number] IV 10/23/20 11:23 11/22/20 11:22 10/27/20 09:14 Assessment/Plan Assessment/Plan 1. Bilateral pneumonia. - Both rapid COVID-19 test and PCR: neg - Cont Abx - Saturating 95% non rebreather 15 LPM 2. Hypertension. 3. DM - Cont home meds including metformin and insuline sliding scale The care for this patient was discussed with my supervising physician Seen and examined by Dr. Betancur The history of Joanna Kim has been reviewed and management options for her have been examined and discussed by Mani Betancur. I have personally examined and interviewed the patient. Time spent for this case was approximately 31 minutes Job Ahumada Oct 27, 2020 16:47 Mani Betancur MD Oct 28, 2020 10:23
--- NOTE | 2020-10-27 17:14 | General Progress Note ---
Subjective Allergies: Coded Allergies: IBUPROFEN (Verified Allergy, Intermediate, rash, 01/24/13) prescription strength only MORPHINE (Verified Allergy, Intermediate, rash, 01/24/13) OXYCODONE (Unverified Allergy, Unknown, 03/09/15) pt cant remember Subjective doing ok sob on high o2 opens her eyes on stimulation tachycardia Objective Last 24 Hour Vital Signs Date Time Temp Pulse Resp B/P (MAP) Pulse Ox O2 Delivery O2 Flow Rate FiO2 10/27/20 12:00 97.6 119 22 156/86 (109) 95 119 10/27/20 12:00 111 10/27/20 09:14 114 155/85 10/27/20 09:00 Non-Rebreather 15.0 10/27/20 08:00 106 10/27/20 08:00 97.9 114 20 155/85 (108) 95 114 10/27/20 04:00 97.7 108 24 137/80 (99) 95 24 10/27/20 04:00 103 10/27/20 00:00 98.6 115 24 133/84 (100) 96 24 10/27/20 00:00 102 10/26/20 21:00 187 10/26/20 21:00 Non-Rebreather 15.0 10/26/20 20:00 98.3 105 24 133/74 (93) 95 105 10/26/20 20:00 100 Intake and Output 10/26/20 10/27/20 19:00 07:00 Output Total 400 ml Balance -400 ml Output Urine Total 400 ml # Voids 2 Laboratory Tests 10/26/20 20:20: POC Whole Blood Glucose 134H 10/27/20 05:18: POC Whole Blood Glucose 114H 10/27/20 06:54: White Blood Count 18.6H, Red Blood Count 3.13L, Hemoglobin 9.6L, Hematocrit 29.0L, Mean Corpuscular Volume 93, Mean Corpuscular Hemoglobin 30.8, Mean Corpuscular Hemoglobin Concent 33.2, Red Cell Distribution Width 17.7H, Platelet Count 363, Mean Platelet Volume 6.7, Neutrophils (%) (Auto) , Lymphocytes (%) (Auto) , Monocytes (%) (Auto) , Eosinophils (%) (Auto) , Basophils (%) (Auto) , Differential Total Cells Counted 100, Neutrophils % (Manual) 83H, Lymphocytes % (Manual) 11L, Monocytes % (Manual) 6, Eosinophils % (Manual) 0, Basophils % (Manual) 0, Band Neutrophils 0, Platelet Estimate Adequate, Platelet Morphology Normal, Hypochromasia 1+, Anisocytosis 1+, Sodium Level 137, Potassium Level 3.4L, Chloride Level 98, Carbon Dioxide Level 28, Anion Gap 11, Blood Urea Nitrogen 12, Creatinine 0.6, Estimat Glomerular Filtration Rate > 60, Glucose Level 138H, Calcium Level 9.1 Height (Feet): 5 Height (Inches): 1.00 Weight (Pounds): 135 General Appearance: alert EENT: PERRL/EOMI Neck: supple Cardiovascular: tachycardia Respiratory/Chest: rhonchi - bilaterally Abdomen: non tender, soft Extremities: non-tender Assessment/Plan Assessment/Plan: 1 ashley pneumonia covid -ve 2 weight loss 3 failure of thrive 4 intractable pain rt knee and lt shoulder 5 chf 6 dm 7 htn 9 djd 10 mild resp acidosis admit to ap r/o covid add steroids dw dr matias cont iv abx pain meds cardiology dr cat on the consult pulmonary on consult pain management on the case dw with dtr rpt cxr Luis Figueroa MD Oct 27, 2020 17:14
--- NOTE | 2020-10-27 19:47 | NUR ---
NURSE HAND-OFF REPORT: Important Events on Shift:Pulled out IV, primary MD aware Patient Status: stable Diet: CCHO Pending Orders: N/A Pending Results/Labs: Pending MD notification:N/A Latest Vital Signs: Temperature 98.0 , Pulse 117 , B/P 153 /92 , Respiratory Rate 22 , O2 SAT 94 , Non-Rebreather, O2 Flow Rate 15.0 . Vital Sign Comment: Stable EKG Rhythm: Sinus Tachycardia Rhythm change?: N MD Notified?: Y -Dr. Jolene CANTRELL Response: No New Orders Received Latest Iniguez Fall Score: 60 Fall Risk: High Risk Safety Measures: Call light Within Reach, Bed Alarm Zone 1, Side Rails Side Rails x3, Bed position Low and Locked. Fall Precautions: Yellow Socks Patient Fall Education Report given to Eloisa/RN.
--- NOTE | 2020-10-27 19:50 | NUR ---
NURSE NOTES: pt is awake in bed A/Ox1. Pt is on Non-rebreather at 15L saturating at 93%. No pain or distress noted at this time. HOB in semi-rodriguez's position. Pt restless and in Bilateral soft wrist restraints. Right and left wrist pules palatable sensation in tack, elimination needs offered, nutrition was offered. Pt does not want to eat at this time. Explained removal criteria to patient but patient is does not return verbalization that she understands. Pt haves no IV at this time as she pulled it out at during day shift. Bed in lowest position and locked with 3 side rails up. Patient educated to use call light when needing assistance. Call light is placed within reach. Will try to insert IV.Will continue to monitor. Addendum: 10/27/20 at 0711 by Eloisa Orta RN Report received from Priti CORONADO.
[2020-10-27 20:00] VITALS: BP 155/84
--- NOTE | 2020-10-27 23:14 | Psychiatry Consultation ---
Psychiatry Consultation Psychiatry Consultation Chief Complaint: Chest Pain History of Present Illness: She is anxious and confused, attempted to pull out line, unable to be engaged during evaluation. PAST PSYCHIATRIC HISTORY: Dementia and psychotic disorder. PAST MEDICAL HISTORY: Diabetes mellitus and hypertension. ALLERGIES: No known drug allergies. SUBSTANCE ABUSE HISTORY: No known history of illicit drug use or alcohol. MENTAL STATUS EXAMINATION: The patient is having waxing and waning consciousness, confused, disoriented. Mood is agitated. Affect is flat. Thought process, there is a paucity of thought content. Thought content, no suicidal or homicidal ideation. Cognition is impaired. Insight and judgment is impaired. ASSESSMENT: Stokes I Acute toxic encephalopathy. Anxiety disorder. Stokes II Deferred. Stokes III As above. Stokes IV Low. Stokes V 20 PLAN: 1. We will start the patient on antipsychotics. 2. Discussed with the nurse. Allergies: Coded Allergies: IBUPROFEN (Verified Allergy, Intermediate, rash, 01/24/13) prescription strength only MORPHINE (Verified Allergy, Intermediate, rash, 01/24/13) OXYCODONE (Unverified Allergy, Unknown, 03/09/15) pt cant remember Medication History Scheduled Amlodipine Besylate (Norvasc), 10 MG ORAL DAILY, (Reported) Aspirin* (Aspir 81*), 81 MG ORAL DAILY, (Reported) Metformin Hcl* (Glucophage*), 1,000 MG ORAL BIDAC, (Reported) Scheduled PRN Acetaminophen With Codeine (T#4) (Tylenol #4 Tab*), 1 TAB ORAL Q4HR PRN for For Pain, (Reported) Objective Data Height (Feet): 5 Height (Inches): 1.00 Weight (Pounds): 135 Margaret Cota MD Oct 27, 2020 23:14
[2020-10-27] MEDS ORDERED: Haloperidol 5mg/ml Inj IM PRN (23:15)
[2020-10-28] VITALS (22 sets, daily range): BP systolic 92–162; BP diastolic 43–89
--- NOTE | 2020-10-28 01:10 | NUR ---
NURSE NOTES: Rapid response was called for the patient for symptomatic bradycardia. At 0037 pt heart rate dropped down rapidly to 42BPM. Patient had slid her non-rebreather off slightly. CLINICAL NURSE LEADER was called Stat. An ABG was taken, patient was placed on Bipap. Epinephrine was pushed at 00:54 pt heart rate went to 112. Patient Blood Sugar was 159 at 0045. Pt blood pressure was 138/89 at 00:50. HR 112. Patient was taken to ICU report was given to Paresh CORONADO.
--- NOTE | 2020-10-28 01:30 | NUR ---
NURSE NOTES: Received pt from 2E after pt apparently went bradycardic and was unresponsive. Pt awake and alert, able to follow commands, on Bipap 25/5 at 100% FiO2 satting 91-95%. Left wrist G20 intact and patent. VS stable and pt is sinus tach on the monitor.
--- NOTE | 2020-10-28 03:53 | NUR ---
NURSE NOTES: Spoke to otto Galvin to inform her that MD hasnt called back after 3 calls. Was informed she will try to reach MD.
[2020-10-28] MEDS: NovoLOG Insulin Flexpen SUBQ SCH ×4 (06:30→21:01)
[2020-10-28] MEDS: metFORMIN 500mg tab ORAL SCH ×2 (06:30→16:30)
--- NOTE | 2020-10-28 07:18 | Hematology/Onc Progress Note ---
Assessment/Plan Assessment/Plan Assessment and Recs # Coagulopathy likely due to underlying infection --> inr elevated, obtain mixing study for ptt/pt --> treat underlying infection -> vitamin k as needed # Anemia of chronic disease --> anemia panel reviewed -> hgb 11-->8.4->9.6 --> likely hemoconcentrated, on ivf --> as per gi care # Leukocytosis with Jesus pneumonia r/o covid --> abx per pulm --> r/o covid19 --> wbc 14-->16-->18 # Weight loss --> age appropriate cancer screening # Failure of thrive -> pt/ot -> daily weights # Intractable pain rt knee and lt shoulder # chf # dm # htn # djd Appreciate consultation and dw RN Subjective Constitutional: Denies: no symptoms, chills, fever, malaise, weakness, other HEENT: Denies: no symptoms, eye pain, blurred vision, tearing, double vision, ear pain, ear discharge, nose pain, nose congestion, throat pain, throat swelling, mouth pain, mouth swelling, other Cardiovascular: Denies: no symptoms, chest pain, edema, irregular heart rate, lightheadedness, palpitations, syncope, other Gastrointestinal/Abdominal: Denies: no symptoms, abdomen distended, abdominal pain, black stools, tarry stools, blood in stool, constipated, diarrhea, difficulty swallowing, nausea, poor appetite, poor fluid intake, rectal bleeding, vomiting, other Genitourinary: Denies: no symptoms, burning, discharge, frequency, flank pain, hematuria, incontinence, pain, urgency, other Neurologic/Psychiatric: Denies: no symptoms, anxiety, depressed, emotional problems, headache, numbness, paresthesia, pre-existing deficit, seizure, tingling, tremors, weakness, other Endocrine: Denies: no symptoms, excessive sweating, flushing, intolerance to cold, intolerance to heat, increased hunger, increased thirst, increased urine, unexplained weight gain, unexplained weight loss, other Allergies: Coded Allergies: IBUPROFEN (Verified Allergy, Intermediate, rash, 01/24/13) prescription strength only MORPHINE (Verified Allergy, Intermediate, rash, 01/24/13) OXYCODONE (Unverified Allergy, Unknown, 03/09/15) pt cant remember Subjective 10/25 stephens intact, has been refusing care, no bleeding, stephens intact 10/26 labs still pending, from yesterday, hgb signif lower, no major events 10/27 labs noted, on 15l, also tachy, cards aware 10/28 has been transferred to the icu, is on bipap, meds noted Objective Objective Current Medications Medications (Trade) Dose Ordered Sig/Elen Route PRN Reason Start Time Stop Time Status Last Admin Dose Admin Acetaminophen (Tylenol) 500 mg TIDPRN PRN ORAL PAIN 1-6 10/27/20 09:00 11/26/20 08:59 Acetaminophen/ Hydrocodone Bitart ([place] 5/325) 1 tab Q4H PRN ORAL severe pain 10/23/20 10:15 10/30/20 10:14 10/26/20 04:48 Amlodipine Besylate (Norvasc) 10 mg DAILY ORAL 10/24/20 09:00 11/23/20 08:59 10/27/20 09:14 Aspirin (Ecotrin) 81 mg DAILY ORAL 10/24/20 09:00 12/08/20 08:59 10/27/20 09:14 Azithromycin 500 mg/Dextrose 275 ml @ 275 mls/hr Q24HRS IV 10/23/20 12:00 10/29/20 12:59 10/27/20 12:58 Ceftriaxone Sodium 1 gm/ Dextrose 55 ml @ 110 mls/hr Q24H IVPB 10/23/20 10:15 10/30/20 10:14 10/27/20 09:15 Dextrose (Dextrose 50%) 25 ml Q30M PRN IV Hypoglycemia 10/23/20 10:15 01/21/21 10:14 Dextrose (Dextrose 50%) 50 ml Q30M PRN IV Hypoglycemia 10/23/20 10:15 01/21/21 10:14 Haloperidol Lactate (Haldol) 5 mg Q6H PRN IM Agitation 10/27/20 23:15 12/11/20 23:14 Insulin Aspart (NovoLOG) BEFORE MEALS AND HS SUBQ 10/23/20 11:30 01/21/21 11:29 10/27/20 21:25 Metformin HCl (Glucophage) 1,000 mg BIAC ORAL 10/23/20 16:30 11/22/20 16:29 10/27/20 17:25 Nitroglycerin (Ntg) 0.4 mg Q5M PRN SL Prn Chest Pain 10/26/20 05:15 11/25/20 05:14 10/26/20 05:25 Ondansetron HCl (Zofran) 4 mg Q6H PRN IVP Nausea & Vomiting 10/23/20 07:15 11/22/20 07:14 10/23/20 07:23 Sodium Chloride 1,000 ml @ 75 mls/hr [id number] IV 10/23/20 11:23 11/22/20 11:22 10/28/20 06:30 Last 24 Hour Vital Signs Date Time Temp Pulse Resp B/P (MAP) Pulse Ox O2 Delivery O2 Flow Rate FiO2 10/28/20 06:00 112 40 143/75 (97) 97 10/28/20 05:00 110 38 147/75 (99) 99 10/28/20 04:00 100 10/28/20 04:00 98.5 105 36 133/69 (90) 97 10/28/20 04:00 107 10/28/20 04:00 Bi-pap 15.0 10/28/20 03:30 108 31 99 100 10/28/20 03:00 97 34 134/56 (82) 96 10/28/20 02:29 42 35 10/28/20 02:00 98.0 120 30 127/70 (89) 93 120 10/28/20 02:00 Bi-pap 15.0 10/28/20 01:53 120 42 93 100 10/27/20 21:00 Non-Rebreather 15.0 10/27/20 20:00 112 10/27/20 20:00 97.7 106 24 155/84 (107) 93 10/27/20 16:00 108 10/27/20 16:00 98.0 117 22 153/92 (112) 94 10/27/20 12:00 97.6 119 22 156/86 (109) 95 119 10/27/20 12:00 111 10/27/20 09:14 114 155/85 10/27/20 09:00 Non-Rebreather 15.0 10/27/20 08:00 106 10/27/20 08:00 97.9 114 20 155/85 (108) 95 114 10/27/20 04:00 97.7 108 24 137/80 (99) 95 24 10/27/20 04:00 103 10/27/20 00:00 98.6 115 24 133/84 (100) 96 24 10/27/20 00:00 102 10/26/20 21:00 187 10/26/20 21:00 Non-Rebreather 15.0 10/26/20 20:00 98.3 105 24 133/74 (93) 95 105 10/26/20 20:00 100 10/26/20 16:00 97.5 101 22 131/75 (93) 94 101 10/26/20 16:00 95 10/26/20 15:46 98.1 10/26/20 12:00 95 10/26/20 12:00 98.1 101 24 117/61 (79) 94 104 10/26/20 10:11 98.3 10/26/20 09:41 104 117/70 10/26/20 09:00 Non-Rebreather 75.0 10/26/20 08:00 98.3 104 22 117/70 (86) 97 104 10/26/20 07:50 102 Intake and Output 10/27/20 10/28/20 19:00 07:00 Intake Total 100 ml Balance 100 ml Intake Oral 100 ml # Voids 2 2 Labs Test 10/25/20 08:00 10/25/20 11:56 10/25/20 17:05 10/26/20 05:07 White Blood Count 13.8 K/UL (4.8-10.8) Red Blood Count 2.67 M/UL (4.20-5.40) Hemoglobin 8.2 G/DL (12.0-16.0) Hematocrit 25.5 % (37.0-47.0) Mean Corpuscular Volume 96 FL (80-99) Mean Corpuscular Hemoglobin 30.7 PG (27.0-31.0) Mean Corpuscular Hemoglobin Concent 32.1 G/DL (32.0-36.0) Red Cell Distribution Width 17.7 % (11.6-14.8) Platelet Count 284 K/UL (150-450) Mean Platelet Volume 6.7 FL (6.5-10.1) Neutrophils (%) (Auto) 77.1 % (45.0-75.0) Lymphocytes (%) (Auto) 11.5 % (20.0-45.0) Monocytes (%) (Auto) 6.4 % (1.0-10.0) Eosinophils (%) (Auto) 4.1 % (0.0-3.0) Basophils (%) (Auto) 1.0 % (0.0-2.0) POC Whole Blood Glucose 111 MG/DL (74-106) 128 MG/DL (74-106) Test 10/26/20 05:35 10/26/20 07:35 10/26/20 10:45 10/26/20 14:25 Arterial Blood pH 7.369 (7.350-7.450) 7.336 (7.350-7.450) Arterial Blood Partial Pressure CO2 45.3 mmHg (35.0-45.0) 57.3 mmHg (35.0-45.0) Arterial Blood Partial Pressure O2 96.2 mmHg (75.0-100.0) 94.1 mmHg (75.0-100.0) Arterial Blood HCO3 25.5 mmol/L (22.0-26.0) 29.9 mmol/L (22.0-26.0) Arterial Blood Oxygen Saturation 96.4 % (95-100) 96.4 % (95-100) Arterial Blood Base Excess 0.1 (-2-2) 3.3 (-2-2) Minh Test Positive Positive White Blood Count 16.1 K/UL (4.8-10.8) 16.1 K/UL (4.8-10.8) Red Blood Count 2.85 M/UL (4.20-5.40) 3.17 M/UL (4.20-5.40) Hemoglobin 8.7 G/DL (12.0-16.0) 9.6 G/DL (12.0-16.0) Hematocrit 27.6 % (37.0-47.0) 30.9 % (37.0-47.0) Mean Corpuscular Volume 97 FL (80-99) 98 FL (80-99) Mean Corpuscular Hemoglobin 30.6 PG (27.0-31.0) 30.3 PG (27.0-31.0) Mean Corpuscular Hemoglobin Concent 31.5 G/DL (32.0-36.0) 31.0 G/DL (32.0-36.0) Red Cell Distribution Width 16.8 % (11.6-14.8) 16.6 % (11.6-14.8) Platelet Count 306 K/UL (150-450) 320 K/UL (150-450) Mean Platelet Volume 7.3 FL (6.5-10.1) 6.9 FL (6.5-10.1) Neutrophils (%) (Auto) 84.0 % (45.0-75.0) % (45.0-75.0) Lymphocytes (%) (Auto) 7.7 % (20.0-45.0) % (20.0-45.0) Monocytes (%) (Auto) 6.1 % (1.0-10.0) % (1.0-10.0) Eosinophils (%) (Auto) 0.1 % (0.0-3.0) % (0.0-3.0) Basophils (%) (Auto) 2.1 % (0.0-2.0) % (0.0-2.0) Sodium Level 137 MMOL/L (136-145) Potassium Level 3.1 MMOL/L (3.5-5.1) Chloride Level 99 MMOL/L (98-107) Carbon Dioxide Level 33 MMOL/L (21-32) Anion Gap 6 mmol/L (5-15) Blood Urea Nitrogen 9 mg/dL (7-18) Creatinine 0.6 MG/DL (0.55-1.30) Estimat Glomerular Filtration Rate > 60 mL/min (>60) Glucose Level 127 MG/DL (74-106) Calcium Level 8.3 MG/DL (8.5-10.1) Total Protein (PEP) 6.3 g/dL (6.0-8.5) Albumin (PEP) 1.9 g/dL (2.9-4.4) Globulin (PEP) 4.4 g/dL (2.2-3.9) Albumin/Globulin Ratio 0.4 (0.7-1.7) Stzzb-5-Mgsyonbgd 0.5 g/dL (0.0-0.4) Fvipf-8-Qqnnueawv 1.3 g/dL (0.4-1.0) Beta Globulins 1.0 g/dL (0.7-1.3) Beta Gamma Globulin 1.5 g/dL (0.4-1.8) PEP Abnormal Protein Bands Not observed g/dL (Not Protein Electrophoresis Interpret Comment (.) Differential Total Cells Counted 100 Neutrophils % (Manual) 90 % (45-75) Lymphocytes % (Manual) 6 % (20-45) Monocytes % (Manual) 3 % (1-10) Eosinophils % (Manual) 0 % (0-3) Basophils % (Manual) 1 % (0-2) Band Neutrophils 0 % (0-8) Platelet Estimate Adequate Platelet Morphology Normal Hypochromasia 1+ Anisocytosis 1+ Macrocytosis 1+ Test 10/26/20 20:20 10/27/20 05:18 10/27/20 06:54 10/28/20 00:47 POC Whole Blood Glucose 134 MG/DL (74-106) 114 MG/DL (74-106) White Blood Count 18.6 K/UL (4.8-10.8) Red Blood Count 3.13 M/UL (4.20-5.40) Hemoglobin 9.6 G/DL (12.0-16.0) Hematocrit 29.0 % (37.0-47.0) Mean Corpuscular Volume 93 FL (80-99) Mean Corpuscular Hemoglobin 30.8 PG (27.0-31.0) Mean Corpuscular Hemoglobin Concent 33.2 G/DL (32.0-36.0) Red Cell Distribution Width 17.7 % (11.6-14.8) Platelet Count 363 K/UL (150-450) Mean Platelet Volume 6.7 FL (6.5-10.1) Neutrophils (%) (Auto) % (45.0-75.0) Lymphocytes (%) (Auto) % (20.0-45.0) Monocytes (%) (Auto) % (1.0-10.0) Eosinophils (%) (Auto) % (0.0-3.0) Basophils (%) (Auto) % (0.0-2.0) Differential Total Cells Counted 100 Neutrophils % (Manual) 83 % (45-75) Lymphocytes % (Manual) 11 % (20-45) Monocytes % (Manual) 6 % (1-10) Eosinophils % (Manual) 0 % (0-3) Basophils % (Manual) 0 % (0-2) Band Neutrophils 0 % (0-8) Platelet Estimate Adequate Platelet Morphology Normal Hypochromasia 1+ Anisocytosis 1+ Sodium Level 137 MMOL/L (136-145) Potassium Level 3.4 MMOL/L (3.5-5.1) Chloride Level 98 MMOL/L (98-107) Carbon Dioxide Level 28 MMOL/L (21-32) Anion Gap 11 mmol/L (5-15) Blood Urea Nitrogen 12 mg/dL (7-18) Creatinine 0.6 MG/DL (0.55-1.30) Estimat Glomerular Filtration Rate > 60 mL/min (>60) Glucose Level 138 MG/DL (74-106) Calcium Level 9.1 MG/DL (8.5-10.1) Arterial Blood pH 7.204 (7.350-7.450) Arterial Blood Partial Pressure CO2 87.4 mmHg (35.0-45.0) Arterial Blood Partial Pressure O2 46.9 mmHg (75.0-100.0) Arterial Blood HCO3 33.7 mmol/L (22.0-26.0) Arterial Blood Oxygen Saturation 69.8 % (95-100) Arterial Blood Base Excess 3.9 (-2-2) Minh Test Positive Test 10/28/20 01:38 Arterial Blood pH 7.320 (7.350-7.450) Arterial Blood Partial Pressure CO2 60.9 mmHg (35.0-45.0) Arterial Blood Partial Pressure O2 62.4 mmHg (75.0-100.0) Arterial Blood HCO3 30.7 mmol/L (22.0-26.0) Arterial Blood Oxygen Saturation 88.2 % (95-100) Arterial Blood Base Excess 3.5 (-2-2) Minh Test Positive Height (Feet): 5 Height (Inches): 1.00 Weight (Pounds): 135 Objective Physical Exam Vitals: noted General Appearance: no apparent distres Heent: bilateral eye normal inspection, bilateral eye PERRL Neck: full range of motion, supple/symm/no masses Respiratory: chest non-tender, lungs clear, normal breath sounds, speaking full sentences Cardiovascular: regular rate, rhythm, no edema Gastrointestinal: normal bowel sounds, non tender Rectal: deferred Genitourinary: normal inspection, no CVA tenderness Neurologic: alert, oriented x3 Lymphatic: no adenopathy Kleynberg,Arturo L. MD Oct 28, 2020 07:18
--- NOTE | 2020-10-28 07:25 | NUR ---
NURSE NOTES:RECEIVED REPORT FROM FRANNY CORONADO FROM REGISTRY . RECEIVED PT WITH HOB ELEVATED 45 DEGREE AWAKE AND ALERT X1, USING BIPAP 25/5, FIO2 100%. O2 SAT 99% . PT IS FULL CODE STATUS. PT REPOSITIONED IN AND MADE COMFORTABLE POSSIBLE.PT USING PUREWICK TO PREVENT FROM GETTING WET. PUREWICK IN PLACE.PT IS CLEAN AND DRY AT THIS TIME.PT WITH H.L ON LT WRIST G#20 PATENT CONNECTED TO IVF,S. PT RECEIVINF 1/2 NS @ 75CC/HRS INFUSING WELL. PT ON BILAT SOFT WRIST RESTRAINS TO PREVENT FROM PULLING MEDICAL DEVICES.FULL BODY ASSESSMENT DONE. NO ACUTE DISTRESS NOTED AT THIS TIME. WILL CONT TO MONITOR.
--- NOTE | 2020-10-28 07:39 | NUR ---
HAND-OFF: Report given to IVONNE Roach.
--- NOTE | 2020-10-28 09:14 | Infectious Diseases Prog Note ---
Assessment/Plan Assessment/Plan A 1. pneumonia COVID 19 negative x 3 2. diabetes mellitus 3. hypertension 4. CHF 5. Leucocytosis P 1. continue ceftriaxone, azithromycin 2. d/c isolation 3. will follow up CXR Subjective ROS Limited/Unobtainable: Yes Constitutional: Denies: fever Neurologic: Reports: confusion, other - on restraint Allergies: Coded Allergies: IBUPROFEN (Verified Allergy, Intermediate, rash, 01/24/13) prescription strength only MORPHINE (Verified Allergy, Intermediate, rash, 01/24/13) OXYCODONE (Unverified Allergy, Unknown, 03/09/15) pt cant remember Objective Last 24 Hour Vital Signs Date Time Temp Pulse Resp B/P (MAP) Pulse Ox O2 Delivery O2 Flow Rate FiO2 10/28/20 07:20 110 40 99 100 10/28/20 06:00 112 40 143/75 (97) 97 10/28/20 05:00 110 38 147/75 (99) 99 10/28/20 04:00 100 10/28/20 04:00 98.5 105 36 133/69 (90) 97 10/28/20 04:00 107 10/28/20 04:00 Bi-pap 15.0 10/28/20 03:30 108 31 99 100 10/28/20 03:00 97 34 134/56 (82) 96 10/28/20 02:29 42 35 10/28/20 02:00 98.0 120 30 127/70 (89) 93 120 10/28/20 02:00 Bi-pap 15.0 10/28/20 01:53 120 42 93 100 10/27/20 21:00 Non-Rebreather 15.0 10/27/20 20:00 112 10/27/20 20:00 97.7 106 24 155/84 (107) 93 10/27/20 16:00 108 10/27/20 16:00 98.0 117 22 153/92 (112) 94 10/27/20 12:00 97.6 119 22 156/86 (109) 95 119 10/27/20 12:00 111 10/27/20 09:14 114 155/85 Height (Feet): 5 Height (Inches): 1.00 Weight (Pounds): 135 HEENT: mucous membranes moist Respiratory/Chest: decreased breath sounds, other - on BIPAP Cardiovascular: tachycardia Abdomen: soft, non tender Extremities: no edema Neurologic/Psychiatric: alert, responsive, disoriented Microbiology Date/Time Source Procedure Growth Status 10/26/20 16:25 Nasopharynx Coronavirus COVID-19 PCR ([facility]RI[facility]) - Final Complete 10/26/20 11:21 Nasopharynx SARS-CoV-2 RdRp Gene Assay - Final Complete Laboratory Tests Test 10/28/20 00:47 10/28/20 01:38 Arterial Blood pH 7.204 (7.350-7.450) 7.320 (7.350-7.450) Arterial Blood Partial Pressure CO2 87.4 mmHg (35.0-45.0) *H 60.9 mmHg (35.0-45.0) *H Arterial Blood Partial Pressure O2 46.9 mmHg (75.0-100.0) 62.4 mmHg (75.0-100.0) L Arterial Blood HCO3 33.7 mmol/L (22.0-26.0) H 30.7 mmol/L (22.0-26.0) H Arterial Blood Oxygen Saturation 69.8 % (95-100) *L 88.2 % (95-100) *L Arterial Blood Base Excess 3.9 (-2-2) H 3.5 (-2-2) H Minh Test Positive Positive Current Medications Medications (Trade) Dose Ordered Sig/Elen Route PRN Reason Start Time Stop Time Status Last Admin Dose Admin Acetaminophen (Tylenol) 500 mg TIDPRN PRN ORAL PAIN 1-6 10/27/20 09:00 11/26/20 08:59 Acetaminophen/ Hydrocodone Bitart ([place] 5/325) 1 tab Q4H PRN ORAL severe pain 10/23/20 10:15 10/30/20 10:14 10/26/20 04:48 Amlodipine Besylate (Norvasc) 10 mg DAILY ORAL 10/24/20 09:00 11/23/20 08:59 10/27/20 09:14 Aspirin (Ecotrin) 81 mg DAILY ORAL 10/24/20 09:00 12/08/20 08:59 10/27/20 09:14 Azithromycin 500 mg/Dextrose 275 ml @ 275 mls/hr Q24HRS IV 10/23/20 12:00 10/29/20 12:59 10/27/20 12:58 Ceftriaxone Sodium 1 gm/ Dextrose 55 ml @ 110 mls/hr Q24H IVPB 10/23/20 10:15 10/30/20 10:14 10/27/20 09:15 Dextrose (Dextrose 50%) 25 ml Q30M PRN IV Hypoglycemia 10/23/20 10:15 01/21/21 10:14 Dextrose (Dextrose 50%) 50 ml Q30M PRN IV Hypoglycemia 10/23/20 10:15 01/21/21 10:14 Haloperidol Lactate (Haldol) 5 mg Q6H PRN IM Agitation 10/27/20 23:15 12/11/20 23:14 Insulin Aspart (NovoLOG) BEFORE MEALS AND HS SUBQ 10/23/20 11:30 01/21/21 11:29 10/27/20 21:25 Metformin HCl (Glucophage) 1,000 mg BIAC ORAL 10/23/20 16:30 11/22/20 16:29 10/27/20 17:25 Nitroglycerin (Ntg) 0.4 mg Q5M PRN SL Prn Chest Pain 10/26/20 05:15 11/25/20 05:14 10/26/20 05:25 Ondansetron HCl (Zofran) 4 mg Q6H PRN IVP Nausea & Vomiting 10/23/20 07:15 11/22/20 07:14 10/23/20 07:23 Sodium Chloride 1,000 ml @ 75 mls/hr [id number] IV 10/23/20 11:23 11/22/20 11:22 10/28/20 06:30 Urbano Wade MD Oct 28, 2020 09:14
--- NOTE | 2020-10-28 09:21 | General Progress Note ---
Subjective Date patient seen: Oct 28, 2020 Time patient seen: 08:30 - am ROS Limited/Unobtainable: Yes Allergies: Coded Allergies: IBUPROFEN (Verified Allergy, Intermediate, rash, 01/24/13) prescription strength only MORPHINE (Verified Allergy, Intermediate, rash, 01/24/13) OXYCODONE (Unverified Allergy, Unknown, 03/09/15) pt cant remember Subjective HISTORY OF PRESENT ILLNESS: This is a 80-year-old female who is being been seen on the ICU floor of [facility]. Patient is on Bipap, no signs of pain or distress at this time. Was not given [place] in the last 24hrs. Objective Last 24 Hour Vital Signs Date Time Temp Pulse Resp B/P (MAP) Pulse Ox O2 Delivery O2 Flow Rate FiO2 10/28/20 07:20 110 40 99 100 10/28/20 06:00 112 40 143/75 (97) 97 10/28/20 05:00 110 38 147/75 (99) 99 10/28/20 04:00 100 10/28/20 04:00 98.5 105 36 133/69 (90) 97 10/28/20 04:00 107 10/28/20 04:00 Bi-pap 15.0 10/28/20 03:30 108 31 99 100 10/28/20 03:00 97 34 134/56 (82) 96 10/28/20 02:29 42 35 10/28/20 02:00 98.0 120 30 127/70 (89) 93 120 10/28/20 02:00 Bi-pap 15.0 10/28/20 01:53 120 42 93 100 10/27/20 21:00 Non-Rebreather 15.0 10/27/20 20:00 112 10/27/20 20:00 97.7 106 24 155/84 (107) 93 10/27/20 16:00 108 10/27/20 16:00 98.0 117 22 153/92 (112) 94 10/27/20 12:00 97.6 119 22 156/86 (109) 95 119 10/27/20 12:00 111 Intake and Output 10/27/20 10/28/20 19:00 07:00 Intake Total 100 ml Balance 100 ml Intake Oral 100 ml # Voids 2 2 Laboratory Tests 10/28/20 00:47: Arterial Blood pH 7.204*L, Arterial Blood Partial Pressure CO2 87.4*H, Arterial Blood Partial Pressure O2 46.9*L, Arterial Blood HCO3 33.7H, Arterial Blood Oxygen Saturation 69.8*L, Arterial Blood Base Excess 3.9H, Minh Test Positive 10/28/20 01:38: Arterial Blood pH 7.320L, Arterial Blood Partial Pressure CO2 60.9*H, Arterial Blood Partial Pressure O2 62.4L, Arterial Blood HCO3 30.7H, Arterial Blood Oxygen Saturation 88.2*L, Arterial Blood Base Excess 3.5H, Minh Test Positive Height (Feet): 5 Height (Inches): 1.00 Weight (Pounds): 135 Objective PHYSICAL EXAMINATION: GENERAL: Awake. LUNGS: Decreased breath sounds bilaterally. HEART: S1 and S2 tachy ABDOMEN: Soft. EXTREMITIES: No cyanosis. No clubbing. NEURO: No changes. Assessment/Plan Assessment/Plan: (1) Multiple joint pain (2) Degenerative Joint disease Patient to be continued on [place] D/w Dr. Mehta and he concurred. Jb Seals Oct 28, 2020 09:21
--- NOTE | 2020-10-28 09:45 | NUR ---
NURSE NOTES:DR CANNON AND HAI CAME TO SEE THE PT AND MADE AWARE AND NOTIFIED REGARDING PT IS BREATHING VERY FAST 36 T0 44 BREATH PER MINUTES .DR VALLES ORDER ABG,S STAT AND DR CANNON CALL PT DAUGHTER ABRAHAN AND MADE HER AWARE AND NOTIFIED REGARDING PT CONDITIONS ALSO DR VALLES SPOKE WITH ABRAHAN AND MADE HER AWARE REGARDING RESPIRATORY STATUS DECLINING. WILL CONT TO MONITOR.
[2020-10-28] MEDS: cefTRIAXone 1 GM in D5W 55 ML IVPB SCH (09:46)
[2020-10-28] MEDS: Aspirin EC 81mg tab ORAL SCH (09:47)
--- NOTE | 2020-10-28 10:17 | General Progress Note ---
Subjective Allergies: Coded Allergies: IBUPROFEN (Verified Allergy, Intermediate, rash, 01/24/13) prescription strength only MORPHINE (Verified Allergy, Intermediate, rash, 01/24/13) OXYCODONE (Unverified Allergy, Unknown, 03/09/15) pt cant remember Subjective doing ok sob on high o2 opens her eyes on stimulation tachycardia Objective Last 24 Hour Vital Signs Date Time Temp Pulse Resp B/P (MAP) Pulse Ox O2 Delivery O2 Flow Rate FiO2 10/28/20 07:20 110 40 99 100 10/28/20 07:00 106 36 128/61 (83) 99 10/28/20 06:00 112 40 143/75 (97) 97 10/28/20 05:00 110 38 147/75 (99) 99 10/28/20 04:00 100 10/28/20 04:00 98.5 105 36 133/69 (90) 97 10/28/20 04:00 107 10/28/20 04:00 Bi-pap 15.0 10/28/20 03:30 108 31 99 100 10/28/20 03:00 97 34 134/56 (82) 96 10/28/20 02:29 42 35 10/28/20 02:00 98.0 120 30 127/70 (89) 93 120 10/28/20 02:00 Bi-pap 15.0 10/28/20 01:53 120 42 93 100 10/27/20 21:00 Non-Rebreather 15.0 10/27/20 20:00 112 10/27/20 20:00 97.7 106 24 155/84 (107) 93 10/27/20 16:00 108 10/27/20 16:00 98.0 117 22 153/92 (112) 94 10/27/20 12:00 97.6 119 22 156/86 (109) 95 119 10/27/20 12:00 111 Intake and Output 10/27/20 10/28/20 19:00 07:00 Intake Total 100 ml Balance 100 ml Intake Oral 100 ml # Voids 2 2 Laboratory Tests 10/28/20 00:47: Arterial Blood pH 7.204*L, Arterial Blood Partial Pressure CO2 87.4*H, Arterial Blood Partial Pressure O2 46.9*L, Arterial Blood HCO3 33.7H, Arterial Blood Oxygen Saturation 69.8*L, Arterial Blood Base Excess 3.9H, Minh Test Positive 10/28/20 01:38: Arterial Blood pH 7.320L, Arterial Blood Partial Pressure CO2 60.9*H, Arterial Blood Partial Pressure O2 62.4L, Arterial Blood HCO3 30.7H, Arterial Blood Oxygen Saturation 88.2*L, Arterial Blood Base Excess 3.5H, Minh Test Positive Height (Feet): 5 Height (Inches): 1.00 Weight (Pounds): 135 General Appearance: alert EENT: PERRL/EOMI Neck: supple Cardiovascular: normal rate, tachycardia Respiratory/Chest: rhonchi - bilaterally Abdomen: non tender, soft Extremities: non-tender Neurologic: alert, oriented x 3 Skin: warm/dry Assessment/Plan Assessment/Plan: 1 ashley pneumonia covid -ve 2 weight loss 3 failure of thrive 4 intractable pain rt knee and lt shoulder 5 chf 6 dm 7 htn 9 djd 10 mild resp acidosis admit to ap r/o covid bipap abg add steroids dw dr matias cont iv abx pain meds cardiology dr cat on the consult pulmonary on consult pain management on the case dw with dtr rpt cxr Luis Figueroa MD Oct 28, 2020 10:17
--- NOTE | 2020-10-28 10:25 | Pulmonology Progress Note ---
Subjective ROS Limited/Unobtainable: Yes Interval Events: Requiring higher FiO2; transferred to ICU Constitutional: Denies: fever, chills HEENT: Repors: no symptoms Respiratory: Reports: no symptoms Cardiovascular: Reports: palpitations Gastrointestinal/Abdominal: Denies: nausea, vomiting, diarrhea Genitourinary: Reports: no symptoms Musculoskeletal: Denies: pain Allergies: Coded Allergies: IBUPROFEN (Verified Allergy, Intermediate, rash, 01/24/13) prescription strength only MORPHINE (Verified Allergy, Intermediate, rash, 01/24/13) OXYCODONE (Unverified Allergy, Unknown, 03/09/15) pt cant remember Objective Last 24 Hour Vital Signs Date Time Temp Pulse Resp B/P (MAP) Pulse Ox O2 Delivery O2 Flow Rate FiO2 10/28/20 07:20 110 40 99 100 10/28/20 07:00 106 36 128/61 (83) 99 10/28/20 06:00 112 40 143/75 (97) 97 10/28/20 05:00 110 38 147/75 (99) 99 10/28/20 04:00 100 10/28/20 04:00 98.5 105 36 133/69 (90) 97 10/28/20 04:00 107 10/28/20 04:00 Bi-pap 15.0 10/28/20 03:30 108 31 99 100 10/28/20 03:00 97 34 134/56 (82) 96 10/28/20 02:29 42 35 10/28/20 02:00 98.0 120 30 127/70 (89) 93 120 10/28/20 02:00 Bi-pap 15.0 10/28/20 01:53 120 42 93 100 10/27/20 21:00 Non-Rebreather 15.0 10/27/20 20:00 112 10/27/20 20:00 97.7 106 24 155/84 (107) 93 10/27/20 16:00 108 10/27/20 16:00 98.0 117 22 153/92 (112) 94 10/27/20 12:00 97.6 119 22 156/86 (109) 95 119 10/27/20 12:00 111 Intake and Output 10/27/20 10/28/20 19:00 07:00 Intake Total 100 ml Balance 100 ml Intake Oral 100 ml # Voids 2 2 General Appearance: no acute distress HEENT: normocephalic Respiratory: chest wall non-tender, decreased breath sounds, other - coarse rhonchi Cardiovascular: normal peripheral pulses, regular rhythm, tachycardia Abdomen: normal bowel sounds, soft, non tender Extremities: no cyanosis, no clubbing, no edema Skin: no rash Neurologic: alert Microbiology Date/Time Source Procedure Growth Status 10/26/20 16:25 Nasopharynx Coronavirus COVID-19 PCR (CHRISTIANNE) - Final Complete 10/26/20 11:21 Nasopharynx SARS-CoV-2 RdRp Gene Assay - Final Complete Laboratory Tests 10/28/20 00:47: Arterial Blood pH 7.204*L, Arterial Blood Partial Pressure CO2 87.4*H, Arterial Blood Partial Pressure O2 46.9*L, Arterial Blood HCO3 33.7H, Arterial Blood Oxygen Saturation 69.8*L, Arterial Blood Base Excess 3.9H, Minh Test Positive 10/28/20 01:38: Arterial Blood pH 7.320L, Arterial Blood Partial Pressure CO2 60.9*H, Arterial Blood Partial Pressure O2 62.4L, Arterial Blood HCO3 30.7H, Arterial Blood Oxygen Saturation 88.2*L, Arterial Blood Base Excess 3.5H, Minh Test Positive Current Medications Medications (Trade) Dose Ordered Sig/Elen Route PRN Reason Start Time Stop Time Status Last Admin Dose Admin Acetaminophen (Tylenol) 500 mg TIDPRN PRN ORAL PAIN 1-6 10/27/20 09:00 11/26/20 08:59 Acetaminophen/ Hydrocodone Bitart (Sinclair 5/325) 1 tab Q4H PRN ORAL severe pain 10/23/20 10:15 10/30/20 10:14 10/26/20 04:48 Amlodipine Besylate (Norvasc) 10 mg DAILY ORAL 10/24/20 09:00 11/23/20 08:59 10/27/20 09:14 Aspirin (Ecotrin) 81 mg DAILY ORAL 10/24/20 09:00 12/08/20 08:59 10/28/20 09:47 Azithromycin 500 mg/Dextrose 275 ml @ 275 mls/hr Q24HRS IV 10/23/20 12:00 10/29/20 12:59 10/27/20 12:58 Ceftriaxone Sodium 1 gm/ Dextrose 55 ml @ 110 mls/hr Q24H IVPB 10/23/20 10:15 12/5/20 10:14 10/28/20 09:46 Dextrose (Dextrose 50%) 25 ml Q30M PRN IV Hypoglycemia 10/23/20 10:15 01/21/21 10:14 Dextrose (Dextrose 50%) 50 ml Q30M PRN IV Hypoglycemia 10/23/20 10:15 01/21/21 10:14 Haloperidol Lactate (Haldol) 5 mg Q6H PRN IM Agitation 10/27/20 23:15 12/11/20 23:14 Insulin Aspart (NovoLOG) BEFORE MEALS AND HS SUBQ 10/23/20 11:30 01/21/21 11:29 10/27/20 21:25 Metformin HCl (Glucophage) 1,000 mg BIAC ORAL 10/23/20 16:30 11/22/20 16:29 10/27/20 17:25 Nitroglycerin (Ntg) 0.4 mg Q5M PRN SL Prn Chest Pain 10/26/20 05:15 11/25/20 05:14 10/26/20 05:25 Ondansetron HCl (Zofran) 4 mg Q6H PRN IVP Nausea & Vomiting 10/23/20 07:15 11/22/20 07:14 10/23/20 07:23 Sodium Chloride 1,000 ml @ 75 mls/hr [id number] IV 10/23/20 11:23 11/22/20 11:22 10/28/20 06:30 Assessment/Plan Assessment/Plan 1. Bilateral pneumonia. - Both rapid COVID-19 test and PCR: neg - Cont Abx - Saturating 95% non rebreather 15 LPM - Now on BiPAP; ABG shows respiratory acidosis - Discussed with daughter (Pippa) and Dr Figueroa; may need to be in tubated 2. Hypertension. 3. DM - Cont home meds including metformin and insulin sliding scale Time spent for this case was approximately 31 minutes Mani Betancur MD Oct 28, 2020 10:25
--- NOTE | 2020-10-28 12:00 | NUR ---
NURSE NOTES:DR VALLES CAME TO SEE THE PT AND ABG,S REPORT ENDORSED. M.D ORDER TO REPEAT ABG,S AT 1500 P.M. WILL CONT TO MONITOR.
[2020-10-28] MEDS: Azithromycin 500 MG in D5W 275 ML IV SCH (12:21)
--- NOTE | 2020-10-28 12:51 | NUR ---
CYLINDER BLOCK MECHANIC NOTe Pt is resting and is on non-rebreather mask. SW spoke w/ pt's daughter, Pippa Kim [phone] and obtained limited psychosocial information. Pt resides at [address] [place] [id number]. Pippa reports she lives close to pt's apartment. Pt has a walker at home but she did not use a walker to ambulate. Pt has hx of fall 1x in the past 6 months. Pippa reports pt was independent w/ ADLs. Pt has 3 adult children and Pippa is the only child who is involved w/ pt's care and tx. PT does not have AD/POA. Pippa declined to provide further psychosocial information. PT remains full code. Pt's , Eren Israel on facesheet is .
--- NOTE | 2020-10-28 15:39 | Diagnostic Imaging Report ---
Indication: Cough Technique: One view of the chest Comparison: 10/22/2020 Findings: Interim worsening of previously demonstrated bilateral infiltrates, now diffuse and extensive. The pleural spaces are grossly clear. The heart size is normal. There are degenerative changes of the right shoulder Impression: Worsening bilateral infiltrates
--- NOTE | 2020-10-28 16:04 | Cardiac Electrophysiology PN ---
Assessment/Plan Assessment/Plan 1. Recurrent Long runs of VT. 16 beats on 10/21 and 8 beat of VT again on 10/26/20 Ruled out for MA Echo EF 65%. Stress test vs Cardiac cath after stabilization 2. Shortness of breath and lung infiltrate. Ruled out for COVID.On BIPAP FU with Dr Betancur 3. Hypertension, on Norvasc 10 mg daily. 4. Diabetes, on metformin. 5. Pneumonia, on azithromycin and ceftriaxone. DW RN Subjective Subjective In ICU off Covid isolation.On BIPAP. In SR. Had 7 beats of VT again on 9 pm on 10/26/20 Objective Last 24 Hour Vital Signs Date Time Temp Pulse Resp B/P (MAP) Pulse Ox O2 Delivery O2 Flow Rate FiO2 10/28/20 15:00 103 33 141/67 (91) 98 10/28/20 15:00 110 32 141/67 (91) 100 10/28/20 14:00 109 32 143/68 (93) 98 10/28/20 13:00 109 38 148/62 (90) 98 10/28/20 12:00 Bi-pap 15.0 10/28/20 12:00 98.5 112 38 157/74 (101) 89 10/28/20 12:00 100 10/28/20 11:53 115 10/28/20 11:30 107 28 99 100 10/28/20 10:00 113 38 149/68 (95) 98 10/28/20 09:00 112 41 162/71 (101) 93 10/28/20 09:00 110 128/61 10/28/20 08:00 Bi-pap 15.0 10/28/20 08:00 107 10/28/20 08:00 98.2 114 39 155/72 (99) 99 10/28/20 07:20 110 40 99 100 10/28/20 07:00 106 36 128/61 (83) 99 10/28/20 06:00 112 40 143/75 (97) 97 10/28/20 05:00 110 38 147/75 (99) 99 10/28/20 04:00 100 10/28/20 04:00 98.5 105 36 133/69 (90) 97 10/28/20 04:00 107 10/28/20 04:00 Bi-pap 15.0 12/3/20 03:30 108 31 99 100 10/28/20 03:00 97 34 134/56 (82) 96 10/28/20 02:29 42 35 10/28/20 02:00 98.0 120 30 127/70 (89) 93 120 10/28/20 02:00 Bi-pap 15.0 10/28/20 01:53 120 42 93 100 10/27/20 21:00 Non-Rebreather 15.0 10/27/20 20:00 112 10/27/20 20:00 97.7 106 24 155/84 (107) 93 Intake and Output 10/27/20 10/28/20 19:00 07:00 Intake Total 100 ml 0 ml Balance 100 ml 0 ml Intake Oral 100 ml 0 ml # Voids 2 2 Laboratory Tests Test 10/28/20 00:47 10/28/20 01:38 10/28/20 10:26 Arterial Blood pH 7.204 (7.350-7.450) 7.320 (7.350-7.450) 7.417 (7.350-7.450) Arterial Blood Partial Pressure CO2 87.4 mmHg (35.0-45.0) *H 60.9 mmHg (35.0-45.0) *H 49.2 mmHg (35.0-45.0) H Arterial Blood Partial Pressure O2 46.9 mmHg (75.0-100.0) 62.4 mmHg (75.0-100.0) L 54.6 mmHg (75.0-100.0) L Arterial Blood HCO3 33.7 mmol/L (22.0-26.0) H 30.7 mmol/L (22.0-26.0) H 31.0 mmol/L (22.0-26.0) H Arterial Blood Oxygen Saturation 69.8 % (95-100) *L 88.2 % (95-100) *L 87.5 % (95-100) *L Arterial Blood Base Excess 3.9 (-2-2) H 3.5 (-2-2) H 5.6 (-2-2) H Minh Test Positive Positive Positive Microbiology Date/Time Source Procedure Growth Status 10/26/20 16:25 Nasopharynx Coronavirus COVID-19 PCR ([facility]RISTIANNE) - Final Complete 10/26/20 11:21 Nasopharynx SARS-CoV-2 RdRp Gene Assay - Final Complete Objective HEAD AND NECK: No JVD.On BIPAP LUNGS: Coarse rhonchi. CARDIOVASCULAR: regular S1 and S2 with no gallop or murmur. ABDOMEN: Soft. EXTREMITIES: No pitting edema. Pacheco Fernández MD Oct 28, 2020 16:04
--- NOTE | 2020-10-28 16:40 | NUR ---
NURSE NOTES:PLACED A TELEPHONE CALL TO DR VALLES AND MADE AWARE AND NOTIFIED REGARDING CURRENT ABG,S RESULT. M.D ORDER TO REPEAT ABG,S IN AM. WILL CONT TO MONITOR.
--- NOTE | 2020-10-28 19:15 | NUR ---
HAND-OFF: Report given to .FRANSICO CORONADO.
--- NOTE | 2020-10-28 19:16 | NUR ---
NURSE NOTES: Patient received from IVONNE Roach. patient lethargic arousable to pain with respirations tachypneic and shallow on bipap 25/5 FiO2 100% oxygen saturation 89%. BP147/62 HR105 Sinus Tachy on monitor temp 99.2F axillary. left wrist #20 running 1/2NS @75ml/hr asymptomatic. skin warm dry with ecchymosis on BUE from prior venipuncture. purewick in place, patient voided on pad. patient repositioned and oral care provided. bed locked lowest position call light within reach.
--- NOTE | 2020-10-28 22:00 | NUR ---
NURSE NOTES: patient lethargic arousable to pain with respirations tachypneic and shallow on bipap 25/5 FiO2 100% oxygen saturation 89%. BP116/54 HR105 Sinus Tachy on monitor. ABG ordered. left wrist #20 running 1/2NS @75ml/hr asymptomatic. Catalan catheter inserted for urinary retention, draining yellow urine. patient repositioned and oral care provided. bed locked lowest position call light within reach.
--- NOTE | 2020-10-28 22:28 | NUR ---
NURSE NOTES: Paged Dr. Betancur to report abnormal lab values. message left. awaiting call back.
--- NOTE | 2020-10-28 22:44 | NUR ---
NURSE NOTES: Dr. Betancur returned page, Dr. Betancur aware of abnormal ABG results and stated family reluctant for elective intubation. patient remains full code. no orders at this time. will continue to monitor.
--- NOTE | 2020-10-28 23:30 | Consultation ---
DATE OF CONSULTATION: 10/28/2020 The patient is a 80-year-old female who is presenting with anxiety, agitation, behavior, is easily agitated and is confused. Has poor insight. The patient is in ICU. She is anxious and confused, attempted to pull out line, unable to be engaged during evaluation. PAST PSYCHIATRIC HISTORY: Dementia and psychotic disorder. PAST MEDICAL HISTORY: Diabetes mellitus and hypertension. ALLERGIES: No known drug allergies. SUBSTANCE ABUSE HISTORY: No known history of illicit drug use or alcohol. MENTAL STATUS EXAMINATION: The patient is having waxing and waning consciousness, confused, disoriented. Mood is agitated. Affect is flat. Thought process, there is a paucity of thought content. Thought content, no suicidal or homicidal ideation. Cognition is impaired. Insight and judgment is impaired. ASSESSMENT: Weldon I Acute toxic encephalopathy. Anxiety disorder. Weldon II Deferred. Weldon III As above. Weldon IV Low. Weldon V 20 PLAN: 1. We will start the patient on antipsychotics. 2. Discussed with the nurse. Margaret Cota M.D. DR: CANDACE JOB#: [id number] CC:
--- NOTE | 2020-10-28 23:54 | NUR ---
NURSE NOTES: Spoke with Daughter Pippa, who gave consent for elective intubation should her mom require that. IVONNE Tristan verified daughter gave verbal consent.
[2020-10-29] VITALS: BP 124/51
--- NOTE | 2020-10-29 | NUR ---
NURSE NOTES: patient lethargic withdraws to deep pain with respirations tachypneic and shallow on bipap 25/5 FiO2 100% oxygen saturation 80%. BP124/51 HR114 Sinus Tachy on monitor and afebrile. Dr. Betnacur called to inform patient daughter Pippa gave verbal consent for elective intubation. Dr. Betancur stated he would call ER doctor for intubation. left wrist #20 running 1/2NS @75ml/hr, right forearm #18 started asymptomatic. Catalan catheter inserted for urinary retention, draining yellow urine. patient repositioned and oral care provided. bed locked lowest position call light within reach.
[2020-10-29] MEDS ORDERED: Norepinephrine 4mg/NS Premix 250 ML ONE (00:32)
[2020-10-29] MEDS ORDERED: DOPamine 400mg/250ml 250 ML IV ONE (00:40)
[2020-10-29 00:45] VITALS: BP 72/53
--- NOTE | 2020-10-29 00:45 | NUR ---
NURSE NOTES: Patient intubated with 7.0ETT at 24cm lipline, awaiting CXR for confirmation prior to placing on ventilator. patient being manually bagged. patient hypotensive BP72/53 HR 71, ER Dr. Dueñas setting up for central line insertion to initiate pressors.
--- NOTE | 2020-10-29 00:50 | NUR ---
NURSE NOTES: Dr. Dueñas started right femoral TLC, ordered Levophed to be started at max dose 30mcg/min, BP 55/39 HR 71. medication overriden, mixed and hung.
[2020-10-29 00:55] VITALS: BP 55/39
[2020-10-29] MEDS ORDERED: Sodium Bicarbonate 50ml Carp ONE (00:59)
--- NOTE | 2020-10-29 00:59 | NUR ---
NURSE NOTES: Patient with no response to pain, PEA on monitor, Code called and CPR initiated. Achieved ROSC at 0105. order received for Dopamine start at max rate 20mcg/kg/min. BP 52/19 HR 78.
[2020-10-29 01:00] VITALS: BP 99/59
[2020-10-29] MEDS ORDERED: DOPamine 400mg/250ml 250 ML IV SCH (01:15)
[2020-10-29] MEDS ORDERED: Phenylephrine 10mg/ml 5ml vial IV ONE (01:16)
[2020-10-29 01:30] VITALS: BP 52/19
[2020-10-29] MEDS ORDERED: Phenylephrine 50 MG in D5W 245 ML IV SCH (01:30)
[2020-10-29] MEDS ORDERED: Vasopressin 100 UNITS in NS 95 ML IV SCH (01:30)
--- NOTE | 2020-10-29 01:30 | NUR ---
NURSE NOTES: order received for Vaso and phenylephrine. BP52/19 HR78. patient unresponsive to pain, no gag reflex, pupils fixed. deviated from protocol per ER MD to max phenylephrine 240mcg/min vasopressin 0.04units/min.
--- NOTE | 2020-10-29 01:30 | NUR ---
NURSE NOTES: Dopamine Medication overridden and hung running at 20mcg/kg/min through right femoral TLC.
[2020-10-29 01:45] VITALS: BP 36/17
[2020-10-29] MEDS ORDERED: Amiodarone 150mg/3ml Amp ONE (01:48)
[2020-10-29] MEDS ORDERED: Magnesium Sulfate 2ml Inj ONE (01:48)
[2020-10-29] MEDS ORDERED: Sodium Bicarbonate 8.4% 50ml Inj ONE (01:48)
[2020-10-29] MEDS ORDERED: Atropine Inj 1mg/10ml Syr ONE (01:48)
--- NOTE | 2020-10-29 01:48 | NUR ---
NURSE NOTES: patient unresponsive to pain. no gag reflex noted, patient entered PEA rhythm, code called, CPR initiated. achieved ROSC at 0203.
--- NOTE | 2020-10-29 01:58 | NUR ---
NURSE NOTES: Spoke with patients daughter and informed her that patient is currently coding and CPR in progress. Pippa said that we should go ahead and try to do all measures possible to save patients life.
--- NOTE | 2020-10-29 02:16 | Diagnostic Imaging Report ---
EXAM: XR Chest, 1 View CLINICAL HISTORY: S/P INTUB TECHNIQUE: Frontal view of the chest. COMPARISON: Chest radiograph November 24, 2020 FINDINGS/IMPRESSION: Endotracheal tube terminates approximately 1.9 cm above the elicia. Enteric feeding tube terminates in the stomach. Additional catheter noted overlying the stomach with distal tip in the epigastric region, correlate clinically. Extensive bilateral airspace consolidations, consistent with multifocal infiltrate. Overall these are similar in appearance to October 28, 2020. Small bilateral pleural effusions. No pneumothorax. Cardiomegaly.
--- NOTE | 2020-10-29 02:22 | NUR ---
NURSE NOTES: patient continued to be unresponsive to pain. no gag reflex noted, no pulse detected by palpation or doppler. PEA on monitor. code called, CPR initiated. TOD 0225.
--- NOTE | 2020-10-29 02:33 | NUR ---
NURSE NOTES: Called patients daughter Pippa Kim to inform her of her mothers passing.
--- NOTE | 2020-10-29 03:48 | NUR ---
NURSE NOTES: Paged Dr. Betancur to informed patient . Dr Betancur not able to talk with family at this time.
--- NOTE | 2020-10-29 04:00 | NUR ---
NURSE NOTES: Daughter Pippa at bedside. personal belongings taken and form signed. will call back with mortuary information.
--- NOTE | 2020-10-29 04:20 | NUR ---
NURSE NOTES: spoke to one legacy member Abel, .
[2020-10-29] MEDS ORDERED: Tubing IV Secondary IV ONE (06:29)
[2020-10-29] MEDS ORDERED: 1/2 NS 1000ml IV ONE (06:29)
--- NOTE | 2020-10-29 06:56 | Emergency Room Report ---
History of Present Illness General Chief Complaint: Chest Pain Source: Patient Present Illness HPI I was called by Dr Betancur to assist with intubation for patient and acute hypoxemic respiratory failure. Patient was hypotensive, tachypneic, and hypoxic on BiPAP. FiO2 100%. Preint ubation SPO2 was 76%. Patient was resuscitated prior to endotracheal intubation. Procedure Note: Endotracheal Intubation by me: Pre assessment performed. See preceding note for details. Pre-oxygenation performed with 100% oxygen on bipap RSI: Performed w/o complication or hypoxic events. Medications as ordered. Emergency Endotracheal Intubation: Consent unable to be obtained due to emergent nature of procedure and airway assessment this patient was prepared for endotracheal intubation with preoxygenation and airway positioning. The patient underwent rapid sequence induction and endotracheal intubation utilizing direct visualization laryngoscopy. The endotracheal tube was placed between the vocal cords and placement was confirmed with fogging of the tube, end title CO2, and equal bilateral chest rise as well as absence of borborygmi over the epigastrium. Chest x-ray was obtained for final confirmation. There were no complications. Blade: VL 4.0 ET Tube: 7.5 cm Depth: 23 cm at the lip Complications: No hypoxic events or bradycardia Intubation confirmed by colorimetric CO2, equal breath sounds, quiet over the stomach. Intubated with full C spine precautions, with the assistance of Tech. Chest X-ray: No acute disease. Normal heart size. Mediastinum normal. No infiltrate. No pneumothorax. ETT in appropriate position above Latasha. OG/NG tube in appropriate position Indication: ETT placement confirmation Impression: Appropriately positioned ETT. No pneumothorax Views: 1 view The X-rays were independently viewed by me and interpreted contemporaneously by me. Central Line Placement by me: Patient consented, sterilely draped, full prep, gown, glove, mask, time out performed. Maximal sterile barrier technique used. Anesthesia: 1% lidocaine locally Location: R femoral Device: Multiple lumen Technique: Seldinger technique. Secured with suture. Results: Venous return from all ports with easy saline flush. No complications. Compl : None Guide wire was retrieved and disposed of. ED Procedural Ultrasound by me: Central line placed by me using concurrent ultrasound guidance. Real time image archived in the medical record confirms vascular anatomy. Dr. Betancur was updated as to patient's critical clinical status Allergies: Coded Allergies: IBUPROFEN (Verified Allergy, Intermediate, rash, 01/24/13) prescription strength only MORPHINE (Verified Allergy, Intermediate, rash, 01/24/13) OXYCODONE (Unverified Allergy, Unknown, 03/09/15) pt cant remember COVID-19 Screening Contact w/high risk pt: No Experienced COVID-19 symptoms?: Yes COVID-19 Testing performed DELIVERY CLERK: No COVID-19 Screening: PUI COVID-19 Patient History Now: No Nursing Documentation-PMH Past Medical History: No History, Except For Hx Cardiac Problems: Yes Hx Hypertension: Yes Hx Pacemaker: No Hx Asthma: No Hx COPD: No Hx Diabetes: Yes Hx Cancer: No Hx Gastrointestinal Problems: No Hx Dialysis: No Hx Neurological Problems: No Hx Cerebrovascular Accident: No Hx Seizures: No Hx Headaches: Yes Physical Exam Vital Signs Date Time Temp Pulse Resp B/P (MAP) Pulse Ox O2 Delivery O2 Flow Rate FiO2 10/25/20 07:40 93 10/25/20 08:00 97.9 18 111/60 (77) 99 10/25/20 09:00 Nasal Cannula 2.0 10/28/20 01:53 100 Sp02 EP Interpretation: reviewed, abnormal Procedures Critical Care Time Critical Care Time Critical Care Statement Organ systems at risk include: cardiac / circulatory Critical care performed for 45 minutes. Time is exclusive of separately billable procedures. Time includes: direct patient care, continuous monitoring and multiple patient reassessment, coordination of patient care, review of patient's medical records, medical consultation, family consultation regarding treatment decisions and documentation of patient care. Medical Decision Making Diagnostic Impression: Primary Impression: ACS (acute coronary syndrome) Additional Impressions: FTT (failure to thrive) in adult Pneumonia Qualified Codes: J18.9 - Pneumonia, unspecified organism Hypoxia Respiratory failure Septic shock Last Vital Signs Date Time Temp Pulse Resp B/P (MAP) Pulse Ox O2 Delivery O2 Flow Rate FiO2 10/29/20 02:13 62 20 100 10/29/20 02:00 Mechanical Ventilator 10/29/20 01:45 36/17 (23) 0 10/28/20 20:00 99.2 10/28/20 16:00 15.0 Disposition: ADMITTED INPATIENT Admit Decision Time: 12:00 Condition: Serious Referrals: Luis Figueroa MD (PCP) Daina Asher D.O. Oct 29, 2020 06:56
--- NOTE | 2020-10-29 07:02 | Emergency Room Report ---
History of Present Illness General Chief Complaint: Chest Pain Source: Patient Present Illness HPI I was called to assist in a CODE BLUE called overhead. Procedure note #1 Cardiopulmonary Resuscitation by me: See code documentation for specific details. ACLS and BLS were performed with high quality chest compressions and minimal interruptions. Any reversible causes were assessed and treated. ROSC was obtained. Procedure note #2 Cardiopulmonary Resuscitation by me: See code documentation for specific details. ACLS and BLS were performed with high quality chest compressions and minimal interruptions. Any reversible causes were assessed and treated. Initial rhythm vfib. ROSC was obtained. Patient is maxed out on 3 pressors and vasopressin. Please see power plant operator apprentice for timing. RN notified family of poor prognosis. Spoke with Dr Betancur about patient's status. Procedure note #3 Cardiopulmonary Resuscitation by me: See code documentation for specific details. ACLS and BLS were performed with high quality chest compressions and minimal interruptions. Any reversible causes were assessed and treated. Initial rhythm PEA Patient went into asystole Dr Betancur notified Time of 022 Allergies: Coded Allergies: IBUPROFEN (Verified Allergy, Intermediate, rash, 01/24/13) prescription strength only MORPHINE (Verified Allergy, Intermediate, rash, 01/24/13) OXYCODONE (Unverified Allergy, Unknown, 03/09/15) pt cant remember COVID-19 Screening Contact w/high risk pt: No Experienced COVID-19 symptoms?: Yes COVID-19 Testing performed SENIOR PAYROLL MANAGER: No COVID-19 Screening: PUI COVID-19 Patient History Now: No Nursing Documentation-PM Past Medical History: No History, Except For Hx Cardiac Problems: Yes Hx Hypertension: Yes Hx Pacemaker: No Hx Asthma: No Hx COPD: No Hx Diabetes: Yes Hx Cancer: No Hx Gastrointestinal Problems: No Hx Dialysis: No Hx Neurological Problems: No Hx Cerebrovascular Accident: No Hx Seizures: No Hx Headaches: Yes Physical Exam Vital Signs Date Time Temp Pulse Resp B/P (MAP) Pulse Ox O2 Delivery O2 Flow Rate FiO2 10/25/20 07:40 93 10/25/20 08:00 97.9 18 111/60 (77) 99 10/25/20 09:00 Nasal Cannula 2.0 10/28/20 01:53 100 Sp02 EP Interpretation: reviewed, abnormal Medical Decision Making Diagnostic Impression: Primary Impression: ACS (acute coronary syndrome) Additional Impressions: Septic shock Respiratory failure Hypoxia FTT (failure to thrive) in adult Pneumonia Qualified Codes: J18.9 - Pneumonia, unspecified organism Cardiopulmonary arrest Chest X-Ray Diagnostic Results Chest X-Ray Diagnostic Results : ELADIO Wood XR Chest, 1 View CLINICAL HISTORY: S/P INTUB TECHNIQUE: Frontal view of the chest. COMPARISON: Chest radiograph November 24, 2020 FINDINGS/IMPRESSION: Endotracheal tube terminates approximately 1.9 cm above the elicia. Enteric feeding tube terminates in the stomach. Additional catheter noted overlying the stomach with distal tip in the epigastric region, correlate clinically. Extensive bilateral airspace consolidations, consistent with multifocal infiltrate. Overall these are similar in appearance to October 28, 2020. Small bilateral pleural effusions. No pneumothorax. Cardiomegaly. Last Vital Signs Date Time Temp Pulse Resp B/P (MAP) Pulse Ox O2 Delivery O2 Flow Rate FiO2 10/29/20 02:13 62 20 100 10/29/20 02:00 Mechanical Ventilator 10/29/20 01:45 36/17 (23) 0 10/28/20 20:00 99.2 10/28/20 16:00 15.0 Disposition: Admit Decision Time: 02:25 Condition: Referrals: Luis Figueroa MD (PCP) Daina Asher D.O. Oct 29, 2020 07:02
--- NOTE | 2020-10-29 13:08 | Cardiology Report ---
APPROVED REPORT EKG Measurement Heart [id number] IL [id number] [id number] <Conclusion> Sinus tachycardia with short IL with frequent premature ventricular complexes Voltage criteria for left ventricular hypertrophy Inferior infarct, age undetermined ST & T wave abnormality, consider anterolateral ischemia Abnormal ECG
--- NOTE | 2020-10-29 20:19 | Psychiatric Progress Note ---
Psychiatry Progress Note Psychiatry Progress Note Neurological/Psychiatric: Reports: anxiety, depressed; Denies: no symptoms, emotional problems, headache, numbness, paresthesia, pre-existing deficit, seizure, tingling, tremors, weakness, other Allergies: Coded Allergies: IBUPROFEN (Verified Allergy, Intermediate, rash, 01/24/13) prescription strength only MORPHINE (Verified Allergy, Intermediate, rash, 01/24/13) OXYCODONE (Unverified Allergy, Unknown, 03/09/15) pt cant remember Objective Data Height (Feet): 5 Height (Inches): 1.00 Weight (Pounds): 135 General Appearance: alert Additional Comments: She is anxious and confused, MENTAL STATUS EXAMINATION: The patient is having waxing and waning consciousness, confused, disoriented. Mood is agitated. Affect is flat. Thought process, there is a paucity of thought content. Thought content, no suicidal or homicidal ideation. Cognition is impaired. Insight and judgment is impaired. ASSESSMENT: [place] I Acute toxic encephalopathy. Anxiety disorder. [place] II Deferred. [place] III As above. [place] IV Low. [place] V 20 PLAN: 1. We will start the patient on antipsychotics. 2. Discussed with the nurse. Margaret Cota MD Oct 29, 2020 20:19
--- NOTE | 2020-10-29 20:21 | Psychiatric Progress Note ---
Psychiatry Progress Note Psychiatry Progress Note Neurological/Psychiatric: Reports: anxiety, depressed; Denies: no symptoms, emotional problems, headache, numbness, paresthesia, pre-existing deficit, seizure, tingling, tremors, weakness, other Allergies: Coded Allergies: IBUPROFEN (Verified Allergy, Intermediate, rash, 01/24/13) prescription strength only MORPHINE (Verified Allergy, Intermediate, rash, 01/24/13) OXYCODONE (Unverified Allergy, Unknown, 03/09/15) pt cant remember Objective Data Height (Feet): 5 Height (Inches): 1.00 Weight (Pounds): 135 General Appearance: WD/WN, no apparent distress, alert Additional Comments: She is anxious and confused, MENTAL STATUS EXAMINATION: The patient is having waxing and waning consciousness, confused, disoriented. Mood is agitated. Affect is flat. Thought process, there is a paucity of thought content. Thought content, no suicidal or homicidal ideation. Cognition is impaired. Insight and judgment is impaired. ASSESSMENT: [place] I Acute toxic encephalopathy. Anxiety disorder. [place] II Deferred. [place] III As above. [place] IV Low. [place] V 20 PLAN: 1. We will start the patient on antipsychotics. 2. Discussed with the nurse. Margaret Cota MD Oct 29, 2020 20:21
--- NOTE | 2020-10-30 13:25 | Cardiology Report ---
APPROVED REPORT EXAM: Two-dimensional and M-mode echocardiogram with Doppler and color Doppler. INDICATION Chest Pain M-Mode DIMENSIONS IVSd0.9 (0.7-1.1cm)Left Atrium (MM)2.5 (1.6-4.0cm) LVDd3.8 (3.5-5.6cm)Aortic Root1.9 (2.0-3.7cm) PWd0.9 (0.7-1.1cm)Aortic Cusp Exc.1.0 (1.5-2.0cm) IVSs1.1 cmEPSS1.0 (>1.0cm) LVDs2.2 (2.5-4.0cm) PWs1.5 cm <Conclusion> Normal left ventricular chamber size, systolic function and wall motion. Left ventricular ejection fraction estimated to be 65 %. Mild left ventricular hypertrophy. No evidence of pericardial effusion. All other cardiac chamber sizes are within normal limits. Moderate aortic valve calcification with decreased cusp excursion c/w aortic stenosis. Thickened mitral valve leaflets with normal excursion. Mitral annulus and aortic root calcification. Increased E point-interventricular septal separation c/w left ventricular dysfunction. Pulmonic valve not well visualized. Normal tricuspid valve structure. IVC is normal in size with slight physiological collapse. A color flow and spectral Doppler study was performed and revealed: No aortic regurgitation. Peak aortic valve gradient of 38 mmHg and a mean of 23 mmHg. Aortic valve area 1.1 cm2 calculated by continuity equation c/w moderate aortic stenosis. Trace mitral regurgitation. Mitral diastolic velocities suggest mild left ventricular diastolic dysfunction (Grade I). Moderate tricuspid regurgitation. Tricuspid systolic velocities suggests peak right ventricular systolic pressure of 71 mmHg, consistent with severe pulmonary hypertension. Mild pulmonic regurgitation present.
--- NOTE | 2020-10-31 13:04 | Discharge Summary ---
Discharge Summary Discharge Summary _ DATE OF ADMISSION: 10/22/2020 DATE OF DISCHARGE: 10/29/2020 BRIEF SUMMARY: Patient is an unfortunate 80-year-old -[place] female, who was noted to have failure to thrive. She has not been getting out of bed the past few days and has not been eating. Patient also had generalized weakness. She complained of chest pain. She had lost significant amount of weight. She has past medical history significant for diabetes, hypertension, arthritis, degenerative arthritis of shoulder and back. Upon evaluation at ED, vital signs wer stable. Blood work showed leukocytosis of 12. Hemoglobin and hematocrit were stable. Troponin was negative. EKG was in normal sinus rhythm with no acute ischemic changes. Chest x-ray showed bilateral infiltrates. Oxygen saturation improved on oxygenation. She was given Dilaudid for pain. She was started on broad-spectrum antibiotics. She was then admitted for pneumonia. She was admitted to monitored floor. Cardiac enzymes were monitored. Covid PCR test was negative. INR was elevated. Coagulopathy was likely due to underlying infection. Work-up for coagulopathy started. She had multiple joint pain and degenerative joint disease. She was given [place]. She was ordered Dilaudid for severe pain. She did not require Dilaudid. Dilaudid was discontinued. She had long run of 16 beats of ventricular tachycardia. Rate went up to 180 bpm. Echocardiogram showed EF of 65%. She was continued on Norvasc for blood pressure control. Patient pneumonia was getting worse and required higher O2 demand. Steroid was added to her regimen. She was given ceftriaxone and azithromycin. Repeat Covid test was negative. She had another episode of 8 beats of V. tach. She continued to require high O2. Dexamethasone was discontinued. Third Covid test was again negative. Patient was anxious and was pulling out lines. Patient has acute toxic encephalopathy. She was started on antipsychotics. ABG showed respiratory acidosis. Patient was placed on BiPAP. Patient became hypotensive, tachypneic and hypoxic on BiPAP. She was lethargic. ED physician was called for intubation. A central line to right femoral vein was inserted. Patient was started on IV pressors. Patient went to [facility]. Resuscitative efforts failed. Patient eventually . FINAL DIAGNOSES: Cardiopulmonary arrest Bilateral pneumonia Failure to thrive/moderate protein calorie malnutrition Intractable multiple joint pain right knee and left shoulder CHF Degenerative joint disease Respiratory acidosis Diabetes Hypertension Recurrent long runs of V. tach Acute toxic metabolic encephalopathy DISPOSITION: Patient . I have been assigned to complete a discharge summary on this account, I was not involved with the patient's management.--KRISTIN Valenzuela Jacqueline Robles NP Oct 31, 2020 13:04
== END 2020-10-29 02:24 | disposition expired | DRG 208 ==
LOC: EMR 16:26 → 2E 16:31 → EDBEDREQ 18:10 → 4E 10-25 15:33 → 2E 10-26 06:52 → ICU 10-28 01:51
DX: J18.9 Pneumonia, unspecified organism (principal); G92 Toxic encephalopathy; J96.01 Acute respiratory failure with hypoxia; E87.2 Acidosis; I47.2 Ventricular tachycardia; E44.0 Moderate protein-calorie malnutrition; I24.9 Acute ischemic heart disease, unspecified; E86.0 Dehydration; F41.9 Anxiety disorder, unspecified; M19.90 Unspecified osteoarthritis, unspecified site; I11.0 Hypertensive heart disease with heart failure; E11.9 Type 2 diabetes mellitus without complications; D63.8 Anemia in other chronic diseases classified elsewhere; I50.9 Heart failure, unspecified; Z88.6 Allergy status to analgesic agent; R62.7 Adult failure to thrive; M17.11 Unilateral primary osteoarthritis, right knee; M19.012 Primary osteoarthritis, left shoulder; R79.1 Abnormal coagulation profile; Z79.84 Long term (current) use of oral hypoglycemic drugs; Z79.82 Long term (current) use of aspirin; Z20.828 Contact with and (suspected) exposure to other viral communicable diseases
CPT/HCPCS: 36415; 71045; 80048; 80053; 80307; 81003; 82728; 82803; 82962; 83540; 83550; 83605; 83615; 83880; 84165; 84439; 84443; 84484; 85007; 85025; 85379; 85610; 85730; 86140; 87040; 87081; 92950; 93005; 93306; 93970; 94002; 94660; 96365; 96367; 96375; 96376; 99291; J0171; J1815; J2370; J2405; J7030; J8499; U0002